=== PATIENT | female | born 1945 | race Caucasian/White ===

== ENCOUNTER 2021-03-01 10:50 | Inpatient (IN) | payer MEDICARE, SELFPAY ==
[2021-03-01] VITALS (14 sets, daily range): BP systolic 86–135; BP diastolic 35–96; PULSE 71–155; RESP 14–20; TEMP 36.4–36.8; O2SAT 97–100; BMI 28.9
--- NOTE | 2021-03-01 | ECG_ITS ---
Test Reason : TACHYCARDIA Blood Pressure : / mmHG Vent. Rate : 157 BPM Atrial Rate : 000 BPM P-R Int : 000 ms QRS Dur : 070 ms QT Int : 294 ms P-R-T Axes : 000 021 138 degrees QTc Int : 475 ms Atrial fibrillation with rapid ventricular response with premature ventricular or aberrantly conducted complexes Nonspecific ST and T wave abnormality Abnormal ECG When compared with ECG of 02-JUL-2011 15:53, Atrial fibrillation has replaced Sinus rhythm Vent. rate has increased BY 82 BPM Referred By: Generic ED Physician Electronically Signed By:MAKENZIE BRADSHAW
--- NOTE | ~2021-03-01 | XR_ITS ---
EXAMINATION: XR CHEST CLINICAL INFORMATION: Covid, cough COMPARISON: None TECHNIQUE: Frontal view of the chest was obtained. FINDINGS: No significant abnormality is noted involving the heart, lungs, mediastinum, bony thorax or soft tissues. XR/XR chest 1V IMPRESSION: Unremarkable chest examination.
--- NOTE | ~2021-03-01 | CT_ITS ---
EXAMINATION: CT ABDOMEN AND PELVIS WITH CONTRAST CLINICAL INFORMATION: Inguinal and vaginal infection. History of multiple cancer. COMPARISON: Ultrasound abdomen 07/02/2011 TECHNIQUE: Multidetector volumetric images were obtained from the superior aspect of the liver through the pubic symphysis following administration 85 mL of Omnipaque 350 intravenous contrast. Sagittal and coronal reformatted images were obtained on the technologist's workstation. Oral contrast: No This CT examination was performed using dose optimization techniques as appropriate, variously including the following: *Automated exposure control *Adjustment of mA and/or kV according to patient size (this includes techniques or standardized protocols for targeted exams where dose is matched to indication/reason for exam; i.e. extremities or head) *Use of iterative reconstruction technique DLP: 983 mGy-cm FINDINGS: LUNG BASES: There is patchy opacity seen in both lung bases. The heart size is normal. LIVER, GALLBLADDER, AND BILIARY TREE: The liver is normal in size, shape, and attenuation. No focal hepatic lesion or biliary ductal dilatation is present. The gallbladder has been surgically removed. PANCREAS: Unremarkable. SPLEEN: The spleen is unremarkable. ADRENAL GLANDS: Prominent left adrenal gland with a nodular thickening measuring 1.1 cm.. KIDNEYS AND URETERS: The kidneys are slightly lobulated with mild cortical thinning. No radiopaque renal calculi, cyst or enhancing renal mass seen. There is no hydroureteronephrosis. BLADDER: The bladder is nondistended with mild anterior bladder wall thickening. No radiopaque calculi seen. GASTROINTESTINAL TRACT: There is mild thickening of distal descending and sigmoid colon but no diverticuli seen or is any suspicion for diverticulitis. This may be postradiation. Changes if any patient had previous radiation. The small bowel loops are normal caliber. Appendix is not visualized. The stomach is nondistended. There is a small amount of fluid in the pelvis ABDOMINAL WALL: There is mild ascites and cellulitis. No evidence of hernia. LYMPH NODES: Normal. VASCULAR: Unremarkable. PELVIC VISCERA: There is small amount of fluid in the pelvis. There is moderate presacral soft tissue thickening likely postradiation changes or post inflammatory changes. Correlate with clinical exam. OSSEOUS STRUCTURES: There are degenerative disc changes throughout lumbar spine with sparing of the L4-L5 disc level. No aggressive lytic or sclerotic process seen. CT/CT abdomen pelvis w con IMPRESSION: No acute intra-abdominal process seen. Diffuse cellulitis, small amount of ascites and moderate presacral soft tissue thickening likely postradiation or postinflammatory changes. There is nonspecific mild mural thickening involving distal descending and sigmoid colon question post radiation changes. There are a few scattered diverticula but no suggestion for diverticulitis. Mild prominent left adrenal gland measuring 1.1 cm.
--- NOTE | 2021-03-01 11:38 | ED_ITS ---
HPI - Wound/Laceration General Chief Complaint: Wound/Laceration <ABRAM Grady - Last Filed: 03/01/21 14:29> Stated Complaint: +COVID,WOUND CARE NEED PER SNF <ABRAM Grady - Last Filed: 03/01/21 14:29> Time Seen by Provider: 03/01/21 11:22 <ABRAM Grady - Last Filed: 03/01/21 14:29> Source: patient, EMS, RN notes reviewed and old records reviewed <ABRAM Grady - Last Filed: 03/01/21 14:29> Mode of arrival: EMS <ABRAM Grady - Last Filed: 03/01/21 14:29> Limitations: no limitations <ABRAM Grady - Last Filed: 03/01/21 14:29> History of Present Illness HPI narrative: 75-year-old female with a history of for 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 She is a poor historian. She had recent admission to [facility] from February 11 to February 16 for failure to thrive and re- initiation of chemotherapy. She had a port placed in her right chest. She was recently found to be COVID positive, unclear when. She denies any shortness of breath or chest pain. She denies fever or chills. She reports severe ongoing pain in her buttock and genital area associated with chronic wounds. Spoke with the nurse at [facility]. They are state deployed emergency nurses helping out in the COVID pandemic and don't know the residents well. Patient was in the COVID unit when they arrived on Tuesday they are on assure when she was diagnosed with COVID. She has been asymptomatic from a COVID perspective. This into the ER today for severe pain associated with her wounds. They have been getting worse since admission to [facility] 02/16. Every time she uses the bathroom she is in severe pain and is unable to get adequately cleaned. Nurse denies any fevers. <ABRAM Grady - Last Filed: 03/01/21 14:29> Onset (ago): unknown <ABRAM Grady - Last Filed: 03/01/21 14:29> Location: genitals <ABRAM Grady - Last Filed: 03/01/21 14:29> Context: other (Status post radiation on clear when.) <ABRAM Grady - Last Filed: 03/01/21 14:29> Associated symptoms: pain <ABRAM Grady - Last Filed: 03/01/21 14:29> Related Data Home Medications: Home Medications Medication Instructions Recorded Confirmed Magic Mouthwash 10 ml PO TIDAC 03/01/21 03/01/21 albuterol sulfate 90 mcg/actuation 2 puff INHALATION Q6H PRN 03/01/21 03/01/21 aerosol inhaler (ProAir HFA) apixaban 5 mg tablet 5 mg PO BID 03/01/21 03/01/21 cholecalciferol (vitamin D3) 50 50 mcg PO DAILY 03/01/21 03/01/21 mcg (2,000 unit) capsule (Vitamin D3) cyanocobalamin (vitamin B-12) 1,000 mcg PO DAILY 03/01/21 03/01/21 1,000 mcg tablet docusate sodium 100 mg capsule 100 mg PO BID 03/01/21 03/01/21 duloxetine 60 mg capsule,delayed 60 mg PO DAILY 03/01/21 03/01/21 release ferrous sulfate 324 mg (65 mg 324 mg PO DAILY 03/01/21 03/01/21 iron) tablet,delayed release insulin glargine 100 unit/mL 16 unit SUBCUT BEDTIME 03/01/21 03/01/21 subcutaneous solution (Lantus U-100 Insulin) insulin lispro 100 unit/mL 1 sliding scale dose SUBCUT QIDACHS 03/01/21 03/01/21 subcutaneous solution (Humalog U-100 Insulin) loperamide 2 mg tablet 2 mg PO Q8H PRN 03/01/21 03/01/21 lorazepam 0.5 mg tablet 0.5 mg PO BID 03/01/21 03/01/21 lovastatin 40 mg tablet 40 mg PO BEDTIME 03/01/21 03/01/21 metoprolol tartrate 25 mg tablet 12.5 mg PO BID 03/01/21 03/01/21 omeprazole 20 mg capsule,delayed 20 mg PO DAILY@0630 03/01/21 03/01/21 release oxycodone 10 mg tablet,crush 10 mg PO BID 03/01/21 03/01/21 resistant,extended release 12 hr (OxyContin) oxycodone 5 mg tablet 5 mg PO Q12H PRN 03/01/21 03/01/21 polyethylene glycol 3350 17 17 g PO DAILY 03/01/21 03/01/21 gram/dose oral powder (Miralax) prochlorperazine maleate 10 mg 10 mg PO Q6H PRN 03/01/21 03/01/21 tablet <ABRAM Grady - Last Filed: 03/01/21 14:29> Allergies/Adverse Reactions: Allergies Allergy/AdvReac Type Severity Reaction Status Date / Time No Known Allergies Allergy Verified 03/01/21 11:33 <ABRAM Grady - Last Filed: 03/01/21 14:29> Review of Systems Review of Systems: Constitutional: No Fever, No Chills ENT/Mouth: No sore throat, No Rhinorrhea, No Swallowing Difficulty Cardiovascular: No Chest Pain, No SOB, No Orthopnea, No Edema Respiratory: No Cough, No Sputum, No Wheezing, No dyspnea Gastrointestinal: No Nausea, No Vomiting, + Diarrhea, No abdominal Pain, No Hematochezia, No Melena Genitourinary: No Dysuria, No Urinary Frequency, No Hematuria Musculoskeletal: No joint pain, No Myalgias Skin: + Skin Lesions, No rash Neuro: No Weakness, No Numbness, No Dizziness, No Headache Psych: + Anxiety/Panic, + Depression Heme/Lymph: No Bruising, No Lymphadenopathy Endocrine: No Polyuria, No Polydipsia <ABRAM Grady - Last Filed: 03/01/21 14:29> [facility] Past Medical History Medical History: Medical History (Updated 03/01/21 @ 16:06 by ABRAM Stubbs) Atrial fibrillation Depression Diabetes Failure to thrive in adult Vulvar cancer <ABRAM Grady - Last Filed: 03/01/21 14:29> Social History Social History: Social History Patient Tobacco Use Status: Never used Tobacco Use of substances other than those prescribed or required for medical reasons: No Advance Directives: No Advance Directives Information Provided: No <ABRAM Grady - Last Filed: 03/01/21 14:29> Physical Exam Vital Signs: Vital Signs: Last Vital Signs Temp 97.6 F 03/01/21 14:31 Pulse 135 H 03/01/21 15:02 Resp 18 03/01/21 15:02 BP 119/68 03/01/21 15:02 Pulse Ox 98 03/01/21 15:02 BMI result Body Mass Index 28.9 <ABRAM Grady - Last Filed: 03/01/21 14:29> Vital Signs: Last Vital Signs Temp 97.6 F 03/01/21 14:31 Pulse 135 H 03/01/21 15:02 Resp 18 03/01/21 15:02 BP 119/68 03/01/21 15:02 Pulse Ox 98 03/01/21 15:02 BMI result Body Mass Index 28.9 <ABRAM Stubbs - Last Filed: 03/01/21 16:06> Appearance: Alert elderly female, Oriented X2. Appears in pain Eyes: Pupils equal, round and reactive to light. ENT: Pharynx normal. Neck: Normal inspection. Neck supple. CVS: Irregularly irregular, rapid rhythm in the 160s. normal. Respiratory: No respiratory distress. Breath sounds coarse throughout. Abdomen: Obese, Soft and nontender. +BS x4 Pelvic/rectal: Significant wounds to the rectal and vaginal areas with liquid stool within the rectal wounds. Skin: Skin warm and dry. Normal skin color. Normal skin turgor. No rashes. Extremities: No lower extremity edema. Contracted LE and unable to spread legs for adequate visualization of vaginal wounds Neuro: Oriented X 2. No motor deficit. No sensory deficit. buttocks external vaginal area <ABRAM Grady - Last Filed: 03/01/21 14:29> Course Course Course Narrative: 75-year-old female with a history of recurrent vulvar cancer re-initiated on chemotherapy earlier this month, failure to thrive, AFib on Eliquis pr esenting to the ER for evaluation of acute on chronic rectal and vaginal wounds. Spoke to the nurse at her SNF who is reporting these wounds have been worsening over the last 2 weeks. No fevers there. She writes to the ER in rapid atrial fibrillation heart rates 140s to 160s. She is in significant pain. She has liquid stool in her wounds. Will get CT scan of the abdomen and pelvis to rule out necrotizing or gas-forming infection. Will empirically start vanco and Zosyn for broad bacterial coverage. IV fluids and IV Cardizem have been ordered to help improve heart rate. Patient is critically ill & require admission to the hospital. <ABRAM Grady - Last Filed: 03/01/21 14:29> Reevaluation(s) Reevaluation #1: Lactic acid 3.6 with no leukocytosis. CRP 14.58 with BNP 270. Getting sepsis bolus of IVF. Respiratory status is stable on room air. Sats are 99%. After the IV Cardizem bolus patient became hypotensive 87/56. Additional IV fluids infusing with improvement in the blood pressure 100/55. Heart rate 140. IV cardizem gtt ordered, may need to dig load if BP becomes soft again. <ABRAM Grady - Last Filed: 03/01/21 14:29> Reevaluation #2: BP 88/38 with HR 130s-140's. 1.3L of the total sepsis bolus have infused so far. Spoke w/ Dr. Cox who agrees with dig load. Signed out to Charlene ARAMBULA who will assume care. <ABRAM Grady - Last Filed: 03/01/21 14:29> Reevaluation #3: CT abdomen pelvis w con IMPRESSION: No acute intra-abdominal process seen. ? Diffuse cellulitis, small amount of ascites and moderate presacral soft tissue thickening likely postradiation or postinflammatory changes. ? There is nonspecific mild mural thickening involving distal descending and sigmoid colon question post radiation changes. There are a few scattered diverticula but no suggestion for diverticulitis.? ? Mild prominent left adrenal gland measuring 1.1 cm. -[id number]--patient admitted to hospital service for further management <ABRAM Stubbs - Last Filed: 03/01/21 16:06> MDM - Wound/Laceration Lab Data Result diagrams: : 03/01/21 12:14 03/01/21 12:14 <ABRAM Grady - Last Filed: 03/01/21 14:29> Labs: Lab Results 03/01/21 03/01/21 03/01/21 Range/Units 11:39 12:14 12:14 WBC 5.8 (4.8-10.8) X10*3/uL RBC 4.69 (4.20-5.50) X10*6/uL Hgb 11.7 L (12.0-16.0) g/dl Hct 36.8 L (37.0-47.0) % MCV 78.5 L (80.0-98.0) fL MCH 24.9 L (27.0-33.0) pg MCHC 31.8 (31.0-35.0) g/dl RDW 16.5 H (11.0-16.0) % Plt Count 361 (160-400) X10*3/uL MPV 10.1 (9.4-12.3) fL Immature Gran % (Auto) Cancelled Neut % (Auto) Cancelled Lymph % (Auto) Cancelled Crane % (Auto) Cancelled Eos % (Auto) Cancelled Baso % (Auto) Cancelled Lymph # (Auto) Cancelled Crane # (Auto) Cancelled Eos # (Auto) Cancelled Baso # (Auto) Cancelled Abs Immat Gran (auto) Cancelled Absolute Neuts (auto) Cancelled Absolute Nucleated RBC 0.000 (0.0-0.012) X10*3/uL Nucleated RBC % (auto) 0.0 (0.0-0.2) /100WBC Neutrophils % (Manual) 80 H (45-73) % Band Neutrophils % 9 H (3-5) % Lymphocytes % (Manual) 3 L (20-40) % Monocytes % (Manual) 8 (2-11) % Abs Neuts (Manual) 5.2 (2.0-8.3) X10*3/uL Lymphocytes # (Manual) 0.2 L (1.2-4.9) X10*3/uL Monocytes # (Manual) 0.5 (0.1-1.2) X10*3/uL Platelet Estimate NORMAL (NORMAL) Large Platelets PRESENT Plt Morphology Comment NOTED RBC Morphology NOTED Ovalocytes 1+ (5-14) /OIF [place] Cells 2+ (3-5) /OIF Rouleaux PRESENT ESR 39 H (0-20) MM/HR PT (9.9-13.0) SEC INR (0.9-1.1) APTT (24.1-38.0) SEC Sodium (135-145) mmol/L Potassium (3.3-5.1) mmol/L Chloride (96-108) mmol/L Carbon Dioxide (22-29) mmol/L Anion Gap (12-20) BUN (9-16) mg/dL Creatinine (0.5-1.4) mg/dL Estim Creat Clear Calc Estimated GFR Random Glucose (60-115) mg/dL Lactic Acid (0.5-2.0) mmol/L Calcium (8.4-10.2) mg/dL Magnesium (1.6-2.6) mg/dL Ferritin (10-250) ng/mL Total Bilirubin (0.0-1.0) mg/dL Direct Bilirubin (0.0-0.5) mg/dL AST (5-31) U/L ALT (0-31) U/L Alkaline Phosphatase (39-117) U/L Lactate Dehydrogenase (122-220) U/L Total Creatine Kinase (26-140) U/L Troponin I High Sens (<3.5-17.0) ng/L C-Reactive Protein (< or = 0.50) mg/dL B-Natriuretic Peptide (<100) pg/mL Total Protein (6.5-8.0) g/dL Albumin (3.5-5.0) g/dL Procalcitonin ng/mL COVID-19 (BRAD) Positive A (Negative) COVID-19 Clin Com See Note 03/01/21 03/01/21 03/01/21 Range/Units 12:14 12:14 12:14 WBC (4.8-10.8) X10*3/uL RBC (4.20-5.50) X10*6/uL Hgb (12.0-16.0) g/dl Hct (37.0-47.0) % MCV (80.0-98.0) fL MCH (27.0-33.0) pg MCHC (31.0-35.0) g/dl RDW (11.0-16.0) % Plt Count (160-400) X10*3/uL MPV (9.4-12.3) fL Immature Gran % (Auto) Neut % (Auto) Lymph % (Auto) Crane % (Auto) Eos % (Auto) Baso % (Auto) Lymph # (Auto) Crane # (Auto) Eos # (Auto) Baso # (Auto) Abs Immat Gran (auto) Absolute Neuts (auto) Absolute Nucleated RBC (0.0-0.012) X10*3/uL Nucleated RBC % (auto) (0.0-0.2) /100WBC Neutrophils % (Manual) (45-73) % Band Neutrophils % (3-5) % Lymphocytes % (Manual) (20-40) % Monocytes % (Manual) (2-11) % Abs Neuts (Manual) (2.0-8.3) X10*3/uL Lymphocytes # (Manual) (1.2-4.9) X10*3/uL Monocytes # (Manual) (0.1-1.2) X10*3/uL Platelet Estimate (NORMAL) Large Platelets Plt Morphology Comment RBC Morphology Ovalocytes /OIF [place] Cells /OIF Rouleaux ESR (0-20) MM/HR PT 15.3 H (9.9-13.0) SEC INR 1.3 H (0.9-1.1) APTT 29.7 (24.1-38.0) SEC Sodium 135 (135-145) mmol/L Potassium 3.7 (3.3-5.1) mmol/L Chloride 98 (96-108) mmol/L Carbon Dioxide 25 (22-29) mmol/L Anion Gap 16 (12-20) BUN 8 L (9-16) mg/dL Creatinine 0.72 (0.5-1.4) mg/dL Estim Creat Clear Calc 60.1 Estimated GFR > 60 Random Glucose 207 H (60-115) mg/dL Lactic Acid 3.6 H* (0.5-2.0) mmol/L Calcium 8.3 L (8.4-10.2) mg/dL Magnesium 1.6 (1.6-2.6) mg/dL Ferritin (10-250) ng/mL Total Bilirubin 0.4 (0.0-1.0) mg/dL Direct Bilirubin 0.3 (0.0-0.5) mg/dL AST 35 H (5-31) U/L ALT 13 (0-31) U/L Alkaline Phosphatase 112 (39-117) U/L Lactate Dehydrogenase 203 (122-220) U/L Total Creatine Kinase 20 L (26-140) U/L Troponin I High Sens (<3.5-17.0) ng/L C-Reactive Protein 14.58 H (< or = 0.50) mg/dL B-Natriuretic Peptide (<100) pg/mL Total Protein 5.4 L (6.5-8.0) g/dL Albumin 2.3 L (3.5-5.0) g/dL Procalcitonin ng/mL COVID-19 (BRAD) (Negative) COVID-19 Clin Com 03/01/21 03/01/21 03/01/21 Range/Units 12:14 12:14 12:14 WBC (4.8-10.8) X10*3/uL RBC (4.20-5.50) X10*6/uL Hgb (12.0-16.0) g/dl Hct (37.0-47.0) % MCV (80.0-98.0) fL MCH (27.0-33.0) pg MCHC (31.0-35.0) g/dl RDW (11.0-16.0) % Plt Count (160-400) X10*3/uL MPV (9.4-12.3) fL Immature Gran % (Auto) Neut % (Auto) Lymph % (Auto) Crane % (Auto) Eos % (Auto) Baso % (Auto) Lymph # (Auto) Crane # (Auto) Eos # (Auto) Baso # (Auto) Abs Immat Gran (auto) Absolute Neuts (auto) Absolute Nucleated RBC (0.0-0.012) X10*3/uL Nucleated RBC % (auto) (0.0-0.2) /100WBC Neutrophils % (Manual) (45-73) % Band Neutrophils % (3-5) % Lymphocytes % (Manual) (20-40) % Monocytes % (Manual) (2-11) % Abs Neuts (Manual) (2.0-8.3) X10*3/uL Lymphocytes # (Manual) (1.2-4.9) X10*3/uL Monocytes # (Manual) (0.1-1.2) X10*3/uL Platelet Estimate (NORMAL) Large Platelets Plt Morphology Comment RBC Morphology Ovalocytes /OIF [place] Cells /OIF Rouleaux ESR (0-20) MM/HR PT (9.9-13.0) SEC INR (0.9-1.1) APTT (24.1-38.0) SEC Sodium (135-145) mmol/L Potassium (3.3-5.1) mmol/L Chloride (96-108) mmol/L Carbon Dioxide (22-29) mmol/L Anion Gap (12-20) BUN (9-16) mg/dL Creatinine (0.5-1.4) mg/dL Estim Creat Clear Calc Estimated GFR Random Glucose (60-115) mg/dL Lactic Acid (0.5-2.0) mmol/L Calcium (8.4-10.2) mg/dL Magnesium (1.6-2.6) mg/dL Ferritin 525 H (10-250) ng/mL Total Bilirubin (0.0-1.0) mg/dL Direct Bilirubin (0.0-0.5) mg/dL AST (5-31) U/L ALT (0-31) U/L Alkaline Phosphatase (39-117) U/L Lactate Dehydrogenase (122-220) U/L Total Creatine Kinase (26-140) U/L Troponin I High Sens 3.7 (<3.5-17.0) ng/L C-Reactive Protein (< or = 0.50) mg/dL B-Natriuretic Peptide 270 H (<100) pg/mL Total Protein (6.5-8.0) g/dL Albumin (3.5-5.0) g/dL Procalcitonin 0.09 ng/mL COVID-19 (BRAD) (Negative) COVID-19 Clin Com <ABRAM Grady - Last Filed: 03/01/21 14:29> Lab Results 03/01/21 03/01/21 03/01/21 Range/Units 11:39 12:14 12:14 WBC 5.8 (4.8-10.8) X10*3/uL RBC 4.69 (4.20-5.50) X10*6/uL Hgb 11.7 L (12.0-16.0) g/dl Hct 36.8 L (37.0-47.0) % MCV 78.5 L (80.0-98.0) fL MCH 24.9 L (27.0-33.0) pg MCHC 31.8 (31.0-35.0) g/dl RDW 16.5 H (11.0-16.0) % Plt Count 361 (160-400) X10*3/uL MPV 10.1 (9.4-12.3) fL Immature Gran % (Auto) Cancelled Neut % (Auto) Cancelled Lymph % (Auto) Cancelled Crane % (Auto) Cancelled Eos % (Auto) Cancelled Baso % (Auto) Cancelled Lymph # (Auto) Cancelled Crane # (Auto) Cancelled Eos # (Auto) Cancelled Baso # (Auto) Cancelled Abs Immat Gran (auto) Cancelled Absolute Neuts (auto) Cancelled Absolute Nucleated RBC 0.000 (0.0-0.012) X10*3/uL Nucleated RBC % (auto) 0.0 (0.0-0.2) /100WBC Neutrophils % (Manual) 80 H (45-73) % Band Neutrophils % 9 H (3-5) % Lymphocytes % (Manual) 3 L (20-40) % Monocytes % (Manual) 8 (2-11) % Abs Neuts (Manual) 5.2 (2.0-8.3) X10*3/uL Lymphocytes # (Manual) 0.2 L (1.2-4.9) X10*3/uL Monocytes # (Manual) 0.5 (0.1-1.2) X10*3/uL Platelet Estimate NORMAL (NORMAL) Large Platelets PRESENT Plt Morphology Comment NOTED RBC Morphology NOTED Ovalocytes 1+ (5-14) /OIF [place] Cells 2+ (3-5) /OIF Rouleaux PRESENT ESR 39 H (0-20) MM/HR PT (9.9-13.0) SEC INR (0.9-1.1) APTT (24.1-38.0) SEC Sodium (135-145) mmol/L Potassium (3.3-5.1) mmol/L Chloride (96-108) mmol/L Carbon Dioxide (22-29) mmol/L Anion Gap (12-20) BUN (9-16) mg/dL Creatinine (0.5-1.4) mg/dL Estim Creat Clear Calc Estimated GFR Random Glucose (60-115) mg/dL Lactic Acid (0.5-2.0) mmol/L Calcium (8.4-10.2) mg/dL Magnesium (1.6-2.6) mg/dL Ferritin (10-250) ng/mL Total Bilirubin (0.0-1.0) mg/dL Direct Bilirubin (0.0-0.5) mg/dL AST (5-31) U/L ALT (0-31) U/L Alkaline Phosphatase (39-117) U/L Lactate Dehydrogenase (122-220) U/L Total Creatine Kinase (26-140) U/L Troponin I High Sens (<3.5-17.0) ng/L C-Reactive Protein (< or = 0.50) mg/dL B-Natriuretic Peptide (<100) pg/mL Total Protein (6.5-8.0) g/dL Albumin (3.5-5.0) g/dL Procalcitonin ng/mL COVID-19 (BRAD) Positive A (Negative) COVID-19 Clin Com See Note 03/01/21 03/01/21 03/01/21 Range/Units 12:14 12:14 12:14 WBC (4.8-10.8) X10*3/uL RBC (4.20-5.50) X10*6/uL Hgb (12.0-16.0) g/dl Hct (37.0-47.0) % MCV (80.0-98.0) fL MCH (27.0-33.0) pg MCHC (31.0-35.0) g/dl RDW (11.0-16.0) % Plt Count (160-400) X10*3/uL MPV (9.4-12.3) fL Immature Gran % (Auto) Neut % (Auto) Lymph % (Auto) Crane % (Auto) Eos % (Auto) Baso % (Auto) Lymph # (Auto) Crane # (Auto) Eos # (Auto) Baso # (Auto) Abs Immat Gran (auto) Absolute Neuts (auto) Absolute Nucleated RBC (0.0-0.012) X10*3/uL Nucleated RBC % (auto) (0.0-0.2) /100WBC Neutrophils % (Manual) (45-73) % Band Neutrophils % (3-5) % Lymphocytes % (Manual) (20-40) % Monocytes % (Manual) (2-11) % Abs Neuts (Manual) (2.0-8.3) X10*3/uL Lymphocytes # (Manual) (1.2-4.9) X10*3/uL Monocytes # (Manual) (0.1-1.2) X10*3/uL Platelet Estimate (NORMAL) Large Platelets Plt Morphology Comment RBC Morphology Ovalocytes /OIF Merline Cells /OIF Rouleaux ESR (0-20) MM/HR PT 15.3 H (9.9-13.0) SEC INR 1.3 H (0.9-1.1) APTT 29.7 (24.1-38.0) SEC Sodium 135 (135-145) mmol/L Potassium 3.7 (3.3-5.1) mmol/L Chloride 98 (96-108) mmol/L Carbon Dioxide 25 (22-29) mmol/L Anion Gap 16 (12-20) BUN 8 L (9-16) mg/dL Creatinine 0.72 (0.5-1.4) mg/dL Estim Creat Clear Calc 60.1 Estimated GFR > 60 Random Glucose 207 H (60-115) mg/dL Lactic Acid 3.6 H* (0.5-2.0) mmol/L Calcium 8.3 L (8.4-10.2) mg/dL Magnesium 1.6 (1.6-2.6) mg/dL Ferritin (10-250) ng/mL Total Bilirubin 0.4 (0.0-1.0) mg/dL Direct Bilirubin 0.3 (0.0-0.5) mg/dL AST 35 H (5-31) U/L ALT 13 (0-31) U/L Alkaline Phosphatase 112 (39-117) U/L Lactate Dehydrogenase 203 (122-220) U/L Total Creatine Kinase 20 L (26-140) U/L Troponin I High Sens (<3.5-17.0) ng/L C-Reactive Protein 14.58 H (< or = 0.50) mg/dL B-Natriuretic Peptide (<100) pg/mL Total Protein 5.4 L (6.5-8.0) g/dL Albumin 2.3 L (3.5-5.0) g/dL Procalcitonin ng/mL COVID-19 (BRAD) (Negative) COVID-19 Clin Com 03/01/21 03/01/21 03/01/21 Range/Units 12:14 12:14 12:14 WBC (4.8-10.8) X10*3/uL RBC (4.20-5.50) X10*6/uL Hgb (12.0-16.0) g/dl Hct (37.0-47.0) % MCV (80.0-98.0) fL MCH (27.0-33.0) pg MCHC (31.0-35.0) g/dl RDW (11.0-16.0) % Plt Count (160-400) X10*3/uL MPV (9.4-12.3) fL Immature Gran % (Auto) Neut % (Auto) Lymph % (Auto) Crane % (Auto) Eos % (Auto) Baso % (Auto) Lymph # (Auto) Crane # (Auto) Eos # (Auto) Baso # (Auto) Abs Immat Gran (auto) Absolute Neuts (auto) Absolute Nucleated RBC (0.0-0.012) X10*3/uL Nucleated RBC % (auto) (0.0-0.2) /100WBC Neutrophils % (Manual) (45-73) % Band Neutrophils % (3-5) % Lymphocytes % (Manual) (20-40) % Monocytes % (Manual) (2-11) % Abs Neuts (Manual) (2.0-8.3) X10*3/uL Lymphocytes # (Manual) (1.2-4.9) X10*3/uL Monocytes # (Manual) (0.1-1.2) X10*3/uL Platelet Estimate (NORMAL) Large Platelets Plt Morphology Comment RBC Morphology Ovalocytes /OIF [place] Cells /OIF Rouleaux ESR (0-20) MM/HR PT (9.9-13.0) SEC INR (0.9-1.1) APTT (24.1-38.0) SEC Sodium (135-145) mmol/L Potassium (3.3-5.1) mmol/L Chloride (96-108) mmol/L Carbon Dioxide (22-29) mmol/L Anion Gap (12-20) BUN (9-16) mg/dL Creatinine (0.5-1.4) mg/dL Estim Creat Clear Calc Estimated GFR Random Glucose (60-115) mg/dL Lactic Acid (0.5-2.0) mmol/L Calcium (8.4-10.2) mg/dL Magnesium (1.6-2.6) mg/dL Ferritin 525 H (10-250) ng/mL Total Bilirubin (0.0-1.0) mg/dL Direct Bilirubin (0.0-0.5) mg/dL AST (5-31) U/L ALT (0-31) U/L Alkaline Phosphatase (39-117) U/L Lactate Dehydrogenase (122-220) U/L Total Creatine Kinase (26-140) U/L Troponin I High Sens 3.7 (<3.5-17.0) ng/L C-Reactive Protein (< or = 0.50) mg/dL B-Natriuretic Peptide 270 H (<100) pg/mL Total Protein (6.5-8.0) g/dL Albumin (3.5-5.0) g/dL Procalcitonin 0.09 ng/mL COVID-19 ([facility]) (Negative) COVID-19 Clin Com <ABRAM Stubbs - Last Filed: 03/01/21 16:06> Critical Care Time Critical Care Time Critical Care Time: Yes <ABRAM Grady - Last Filed: 03/01/21 14:29> Total Critical Care Time: 50 <ABRAM Grady - Last Filed: 03/01/21 14:29> Attestation: I have personally provided critical care time exclusive of time spent on separately billable procedures. Time includes review of lab data, radiology results, discussion with consultants, frequent reassessments and monitoring for potential decompensation. Intervention performed as documented. <ABRAM Grady - Last Filed: 03/01/21 14:29> Discharge Plan Discharge Clinical Impression: Atrial fibrillation with rapid ventricular response, Cellulitis, COVID-19 <ABRAM Grady - Last Filed: 03/01/21 14:29> Patient Disposition: Admitted As Inpatient <ABRAM Grady - Last Filed: 03/01/21 14:29> Prescriptions: No Action oxycodone 5 mg Tablet 5 mg PO Q12H PRN (Reason: Pain (Scale Score 4-6)) RF: 0 oxycodone [OxyContin] 10 mg Tablet,Oral Only,Ext.Rel.12 Hr 10 mg PO BID RF: 0 apixaban 5 mg Tablet 5 mg PO BID RF: 0 cholecalciferol (vitamin D3) [Vitamin D3] 50 mcg (2,000 unit) Capsule 50 mcg PO DAILY RF: 0 cyanocobalamin (vitamin B-12) 1,000 mcg Tablet 1,000 mcg PO DAILY RF: 0 docusate sodium 100 mg Capsule 100 mg PO BID RF: 0 duloxetine 60 mg Capsule,Delayed Release(Dr/Ec) 60 mg PO DAILY RF: 0 ferrous sulfate 324 mg (65 mg iron) Tablet,Delayed Release (Dr/Ec) 324 mg PO DAILY RF: 0 Lantus U-100 Insulin 100 unit/mL Solution 16 unit SUBCUT BEDTIME RF: 0 Magic Mouthwash 10 ml PO TIDAC RF: 0 lorazepam 0.5 mg Tablet 0.5 mg PO BID RF: 0 lovastatin 40 mg Tablet 40 mg PO BEDTIME RF: 0 metoprolol tartrate 25 mg Tablet 12.5 mg PO BID RF: 0 omeprazole 20 mg Capsule,Delayed Release(Dr/Ec) 20 mg PO DAILY@0630 RF: 0 polyethylene glycol 3350 [Miralax] 17 gram/dose Powder 17 g PO DAILY RF: 0 prochlorperazine maleate 10 mg Tablet 10 mg PO Q6H PRN (Reason: Nausea And Vomiting) RF: 0 insulin lispro [Humalog U-100 Insulin] 100 unit/mL Solution 1 sliding scale dose SUBCUT QIDACHS RF: 0 loperamide 2 mg Tablet 2 mg PO Q8H PRN (Reason: Diarrhea) RF: 0 albuterol sulfate [ProAir HFA] 90 mcg/actuation Hfa Aerosol Inhaler 2 puff INHALATION Q6H PRN (Reason: Shortness Of Breath Or Wheezing) RF: 0 <ABRAM Grady - Last Filed: 03/01/21 14:29>
[2021-03-01 11:52] LABS: COVID-19 Test Positive (Negative)
[2021-03-01] MEDS: 0.9 % Sodium Chloride 1,000 ML 999 ML IVCONT (12:23)
[2021-03-01] MEDS: dilTIAZem HCL 50 MG/10 ML VIAL 10 MG IVPUSH (12:24)
--- NOTE | 2021-03-01 12:30 | PC.NURSE ---
Addendum entered by Marcia Richmond 03/01/21 17:45: Extensive wound pictures placed i chart by Annetta VALVERDE Original Note: Pt difficult stick, phelbotomy drawn labs, still need bld cx. P given caridizem for rapid a fib rate initially 160s, now 130-140.
[2021-03-01 12:37] LABS: Hematocrit 36.8 % (37.0-47.0); Hemoglobin 11.7 g/dl (12.0-16.0); Mean Corpuscular HGB Conc 31.8 g/dl (31.0-35.0); Mean Corpuscular Hemoglobin 24.9 pg (27.0-33.0); Mean Corpuscular Volume 78.5 fL (80.0-98.0); Mean Platelet Volume 10.1 fL (9.4-12.3); Platelet Count 361 X10*3/uL (160-400); Red Blood Count 4.69 X10*6/uL (4.20-5.50); Red Cell Distribution Width 16.5 % (11.0-16.0); White Blood Count 5.8 X10*3/uL (4.8-10.8)
[2021-03-01 12:47] LABS: INTERNATIONAL NORM RATIO 1.3 (0.9-1.1); Prothrombin Time 15.3 SEC (9.9-13.0)
[2021-03-01] MEDS: Piperacillin Sodium/Tazobactam 3.375 GM in 0.9 % Sodium Chloride 50 ML IV ×2 (12:49→18:14)
[2021-03-01 12:50] LABS: Lactic Acid 3.6 mmol/L (0.5-2.0); Partial Thromboplastin Time 29.7 SEC (24.1-38.0)
[2021-03-01 12:54] LABS: Alanine Aminotransferase 13 U/L (0-31); Albumin Level 2.3 g/dL (3.5-5.0); Alkaline Phosphatase 112 U/L (39-117); Anion Gap 16 (12-20); Aspartate Amino Transferase 35 U/L (5-31); Bilirubin Direct 0.3 mg/dL (0.0-0.5); Bilirubin Total 0.4 mg/dL (0.0-1.0); Blood Urea Nitrogen 8 mg/dL (9-16); C Reactive Protein 14.58 mg/dL (< or = 0.50); Calcium 8.3 mg/dL (8.4-10.2); Carbon Dioxide 25 mmol/L (22-29); Chloride 98 mmol/L (96-108); Creatinine Clr Calc Pharmacy 60.1; Estimated Glomerular Filt Rate > 60; Glucose Random 207 mg/dL (60-115); Lactate Dehydrogenase 203 U/L (122-220); Magnesium 1.6 mg/dL (1.6-2.6); Potassium 3.7 mmol/L (3.3-5.1); Sodium 135 mmol/L (135-145); Total Protein 5.4 g/dL (6.5-8.0)
[2021-03-01 12:58] LABS: Band Neutrophils Percent 9 % (3-5); Lymphocytes Absolute Manual 0.2 X10*3/uL (1.2-4.9); Lymphocytes Percent Manual 3 % (20-40); Monocytes Absolute Manual 0.5 X10*3/uL (0.1-1.2); Monocytes Percent Manual 8 % (2-11); Neutrophils Absolute Manual 5.2 X10*3/uL (2.0-8.3); Neutrophils Percent Manual 80 % (45-73)
[2021-03-01 12:59] LABS: B Type Natriuretic Peptide 270 pg/mL (<100); Burr Cells 2+ (3-5) /OIF; Ovalocytes 1+ (5-14) /OIF; RBC Morphology NOTED; Rouleau PRESENT
[2021-03-01 13:00] LABS: Large Platelet PRESENT; Platelet Estimate NORMAL (NORMAL); Platelet Morphology Comment NOTED
[2021-03-01] MEDS: vancomycin HCL 750 MG in 0.9 % Sodium Chloride 250 ML 265 MG IV (13:05)
[2021-03-01] MEDS: 0.9 % Sodium Chloride 2,082 ML 2082 ML IV (13:07)
[2021-03-01 13:12] LABS: Procalcitonin 0.09 ng/mL
[2021-03-01 13:16] LABS: Troponin-I High Sensitivity 3.7 ng/L (<3.5-17.0)
[2021-03-01 13:18] LABS: Erythrocyte Sedimentation Rate 39 MM/HR (0-20)
[2021-03-01 13:45] LABS: Ferritin 525 ng/mL (10-250)
[2021-03-01] MEDS: iohexoL 350 MG/ML 100 ML INFUS..BTL IV (14:10)
--- NOTE | 2021-03-01 14:13 | PHA.MEDREC ---
MED REC COMPLETE, NO ISSUES Pharmacy Consult ? Medication Reconciliation Pharmacy has completed the medication reconciliation.
[2021-03-01 14:33] LABS: Reflex Lactate? Lactic Acid Added
[2021-03-01] MEDS: Digoxin 0.5 MG/2 ML AMPUL IVPUSH (14:51)
--- NOTE | 2021-03-01 15:03 | PC.NURSE ---
Digoxin given, HR 132 at this time, last pressure as noted (119/68). Pt denies pain with rest and appears comfortable. Difficult IV stick to repeat lactic, will reattempt after warming extremities.
[2021-03-01] MEDS: metroNIDAZOLE 500 MG TABLET PO (15:58)
--- NOTE | 2021-03-01 16:29 | PM.IMHP ---
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 She recently restarted on chemotherapy at [facility], where she was just admitted 02/11-02/16/21 after sustaining a fall at home. She was transferred to [facility] for failure to thrive and for placement. She had a Port-A-Cath placed and received her 2nd cycle of cisplatin and paclitaxel on 02/15 with dose reduction due to diarrhea she had after the 1st cycle. She was discharged to [facility], which apparently is being staffed currently by state-deployed emergency nurses due to the Covid-19 pandemic. 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 Her , with whom she lives, was also admitted to [facility] and they roomed together until 1 of them [she is unclear which one] tested positive for Covid-19. She had 2 doses of the [employer] Covid-19 mRNA vaccine in June and July of this year. She denies cough, dyspnea, or fever. She was sent in with pain in her buttock and genital area with worsening wounds, which were found in the ED to be contaminated with feces. She does endorse diarrhea. She was found to be in AF with RVR of 155. She was given IV vancomycin and piperacillin-tazobactam, and 10mg of IV diltiazem. BP dropped from 112/54 to 87/56 with RVR still in the 140s. Lactate 3.8. She was given 30 mL/kg of NS though did not, strictly speaking, meet sepsis criteria. She was then given 0.5mg of IV digoxin. Currently, she is in AF with RVR in the 130s with BP 135/96. She denies chest pain, palpitations, or lightheadedness. CT of the abdomen and pelvis show diffuse cellulitis with postradiation changes in the presacral area. Review of Systems Review of Systems: Yes all other systems are reviewed and are negative [facility] Medical History Anticoagulated Atrial fibrillation Chronic pain Depression Diabetes Failure to thrive in adult History of ovarian cancer History of uterine cancer Vulvar cancer Pertinent family history: mother: DM2, [place] father: DM2, HTN, CVA sister: breast CA sister: breast CA, HTN brother: [place], CVA daughter: HTN, DM2 Surgical History History of appendectomy History of carpal tunnel release History of cholecystectomy History of hysterectomy for cancer History of knee replacement History of salpingo-oophorectomy History of vulvectomy Social History Patient Tobacco Use Status: Never used Tobacco Use of substances other than those prescribed or required for medical reasons: No Advance Directives: No Advance Directives Information Provided: No Meds Allergies Allergy/AdvReac Type Severity Reaction Status Date / Time No Known Allergies Allergy Verified 03/01/21 11:33 Active Medications: Current Medications Acetaminophen (Acetaminophen 325 Mg Tablet) 650 mg PO Q6H PRN PRN Reason: Pain, Mild (Pain Scale 1-3) Albuterol Sulfate (Albuterol Sulfate 90 Mcg 8 Gm Inhaler) 2 puff INHALE Q6H PRN PRN Reason: Shortness Of Breath Or Wheezing Apixaban (Apixaban 5 Mg Tablet) 5 mg PO BID [facility] Cyanocobalamin (Cyanocobalamin (Vitamin B-12) 1,000 Mcg Tablet) 1,000 mcg PO DAILY [facility] Duloxetine HCl (Duloxetine Hcl 60 Mg Capsule.) 60 mg PO DAILY [facility] Ferrous Sulfate (Ferrous Sulfate 324 Mg Tablet.) 324 mg PO DAILY [facility] Diltiazem HCl 125 mg/ Sodium (Chloride) 125 mls @ 0 mls/hr IVCONT .Q0M [facility]; Protocol Insulin Glargine (Insulin Glargine,Hum.Rec.Anlog 100 Unit/Ml 10 Ml Vial) 16 unit SUBCUT BEDTIME [facility] Lorazepam (Lorazepam 0.5 Mg Tablet) 0.5 mg PO BID [facility] Metoprolol Tartrate (Metoprolol Tartrate 12.5 Mg Halftab) 12.5 mg PO BID [facility]; Protocol Omeprazole (Omeprazole 20 Mg Capsule.) 20 mg PO DAILY@0630 [facility] Ondansetron HCl (Ondansetron Hcl 4 Mg/2 Ml Vial) 4 mg IVPUSH Q8H PRN PRN Reason: Nausea and Vomiting Oxycodone HCl (Oxycodone Hcl Immed Release 5 Mg Tablet) 5 mg PO Q12H PRN PRN Reason: Pain (Scale Score 4-6) Oxycodone HCl (Oxycodone Hcl Er 10 Mg Tab.Er.12h) 10 mg PO BID [facility] Pharmacy Consult (Consult Rx Perform Med Rec) 1 each MISCELLANE ONCE PRN PRN Reason: Consult order Pravastatin Sodium (Pravastatin Sodium 40 Mg Tablet) 40 mg PO BEDTIME [facility] Sodium Chloride (0.9 % Sodium Chloride Flush 3 Ml Syringe) 3 ml IVFLUSH QSHIFT [facility] Vitamin D (Cholecalciferol (Vitamin D3) 25 Mcg Tablet) 50 mcg PO DAILY [facility] Home Medications Medication Instructions Recorded Confirmed Last Taken Type Magic Mouthwash 10 ml PO TIDAC 03/01/21 03/01/21 Unknown History albuterol sulfate 90 mcg/actuation 2 puff INHALATION Q6H PRN 03/01/21 03/01/21 Unknown History aerosol inhaler (ProAir HFA) apixaban 5 mg tablet 5 mg PO BID 03/01/21 03/01/21 03/01/21 History cholecalciferol (vitamin D3) 50 50 mcg PO DAILY 03/01/21 03/01/21 03/01/21 History mcg (2,000 unit) capsule (Vitamin D3) cyanocobalamin (vitamin B-12) 1,000 mcg PO DAILY 03/01/21 03/01/21 03/01/21 History 1,000 mcg tablet docusate sodium 100 mg capsule 100 mg PO BID 03/01/21 03/01/21 03/01/21 History duloxetine 60 mg capsule,delayed 60 mg PO DAILY 03/01/21 03/01/21 03/01/21 History release ferrous sulfate 324 mg (65 mg 324 mg PO DAILY 03/01/21 03/01/21 03/01/21 History iron) tablet,delayed release insulin glargine 100 unit/mL 16 unit SUBCUT BEDTIME 03/01/21 03/01/21 02/28/21 History subcutaneous solution (Lantus U-100 Insulin) insulin lispro 100 unit/mL 1 sliding scale dose SUBCUT QIDACHS 03/01/21 03/01/21 Unknown History subcutaneous solution (Humalog U-100 Insulin) loperamide 2 mg tablet 2 mg PO Q8H PRN 03/01/21 03/01/21 Unknown History lorazepam 0.5 mg tablet 0.5 mg PO BID 03/01/21 03/01/21 03/01/21 History lovastatin 40 mg tablet 40 mg PO BEDTIME 03/01/21 03/01/21 02/28/21 History metoprolol tartrate 25 mg tablet 12.5 mg PO BID 03/01/21 03/01/21 03/01/21 History omeprazole 20 mg capsule,delayed 20 mg PO DAILY@0630 03/01/21 03/01/21 03/01/21 History release oxycodone 10 mg tablet,crush 10 mg PO BID 03/01/21 03/01/21 03/01/21 History resistant,extended release 12 hr (OxyContin) oxycodone 5 mg tablet 5 mg PO Q12H PRN 03/01/21 03/01/21 Unknown History polyethylene glycol 3350 17 17 g PO DAILY 03/01/21 03/01/21 Unknown History gram/dose oral powder (Miralax) prochlorperazine maleate 10 mg 10 mg PO Q6H PRN 03/01/21 03/01/21 Unknown History tablet Physical Exam Vital Signs and Narrative: Vital Signs: Last Vital Signs Temp 97.6 F 03/01/21 14:31 Pulse 135 H 03/01/21 15:02 Resp 18 03/01/21 15:02 BP 119/68 03/01/21 15:02 Pulse Ox 98 03/01/21 15:02 BMI result Body Mass Index 28.9 Gen: chronically ill-appearing but alert HEENT: sclera anicteric, moist mucus membranes Neck: supple Chest: R subclavian port Lungs: clear to auscultation bilaterally Heart: irregular, rapid, no murmurs Abd: soft, non-tender, non-distended Ext: no edema Skin: warm/well-perfused, pale, wounds as below Neuro: alert and oriented x3, no focal findings Psych: appropriate affect Results Labs CBC and Chem 7: 03/01/21 12:14 03/01/21 12:14 Labs: Laboratory Results - last 24 hr 03/01/21 03/01/21 03/01/21 11:39 12:14 12:14 MCV 78.5 L MCH 24.9 L MCHC 31.8 RDW 16.5 H Plt Count 361 MPV 10.1 Immature Gran % (Auto) Cancelled Neut % (Auto) Cancelled Lymph % (Auto) Cancelled [place] % (Auto) Cancelled Eos % (Auto) Cancelled Baso % (Auto) Cancelled Lymph # (Auto) Cancelled [place] # (Auto) Cancelled Eos # (Auto) Cancelled Baso # (Auto) Cancelled Abs Immat Gran (auto) Cancelled Absolute Neuts (auto) Cancelled Absolute Nucleated RBC 0.000 Nucleated RBC % (auto) 0.0 Neutrophils % (Manual) 80 H Band Neutrophils % 9 H Lymphocytes % (Manual) 3 L Monocytes % (Manual) 8 Abs Neuts (Manual) 5.2 Lymphocytes # (Manual) 0.2 L Monocytes # (Manual) 0.5 Platelet Estimate NORMAL Large Platelets PRESENT Plt Morphology Comment NOTED RBC Morphology NOTED Ovalocytes 1+ (5-14) [place] Cells 2+ (3-5) Rouleaux PRESENT ESR 39 H PT INR APTT Anion Gap Estim Creat Clear Calc Estimated GFR Random Glucose Lactic Acid Calcium Magnesium Ferritin Total Bilirubin Direct Bilirubin AST ALT Alkaline Phosphatase Lactate Dehydrogenase Total Creatine Kinase Troponin I High Sens C-Reactive Protein B-Natriuretic Peptide Total Protein Albumin Procalcitonin COVID-19 (BRAD) Positive A COVID-19 Clin Com See Note 03/01/21 03/01/21 03/01/21 12:14 12:14 12:14 MCV MCH MCHC RDW Plt Count MPV Immature Gran % (Auto) Neut % (Auto) Lymph % (Auto) [place] % (Auto) Eos % (Auto) Baso % (Auto) Lymph # (Auto) [place] # (Auto) Eos # (Auto) Baso # (Auto) Abs Immat Gran (auto) Absolute Neuts (auto) Absolute Nucleated RBC Nucleated RBC % (auto) Neutrophils % (Manual) Band Neutrophils % Lymphocytes % (Manual) Monocytes % (Manual) Abs Neuts (Manual) Lymphocytes # (Manual) Monocytes # (Manual) Platelet Estimate Large Platelets Plt Morphology Comment RBC Morphology Ovalocytes [place] Cells Rouleaux ESR PT 15.3 H INR 1.3 H APTT 29.7 Anion Gap 16 Estim Creat Clear Calc 60.1 Estimated GFR > 60 Random Glucose 207 H Lactic Acid 3.6 H* Calcium 8.3 L Magnesium 1.6 Ferritin Total Bilirubin 0.4 Direct Bilirubin 0.3 AST 35 H ALT 13 Alkaline Phosphatase 112 Lactate Dehydrogenase 203 Total Creatine Kinase 20 L Troponin I High Sens C-Reactive Protein 14.58 H B-Natriuretic Peptide Total Protein 5.4 L Albumin 2.3 L Procalcitonin COVID-19 (BRAD) COVID-19 Clin Com 03/01/21 03/01/21 03/01/21 12:14 12:14 12:14 MCV MCH MCHC RDW Plt Count MPV Immature Gran % (Auto) Neut % (Auto) Lymph % (Auto) [place] % (Auto) Eos % (Auto) Baso % (Auto) Lymph # (Auto) [place] # (Auto) Eos # (Auto) Baso # (Auto) Abs Immat Gran (auto) Absolute Neuts (auto) Absolute Nucleated RBC Nucleated RBC % (auto) Neutrophils % (Manual) Band Neutrophils % Lymphocytes % (Manual) Monocytes % (Manual) Abs Neuts (Manual) Lymphocytes # (Manual) Monocytes # (Manual) Platelet Estimate Large Platelets Plt Morphology Comment RBC Morphology Ovalocytes [place] Cells Rouleaux ESR PT INR APTT Anion Gap Estim Creat Clear Calc Estimated GFR Random Glucose Lactic Acid Calcium Magnesium Ferritin 525 H Total Bilirubin Direct Bilirubin AST ALT Alkaline Phosphatase Lactate Dehydrogenase Total Creatine Kinase Troponin I High Sens 3.7 C-Reactive Protein B-Natriuretic Peptide 270 H Total Protein Albumin Procalcitonin 0.09 COVID-19 (BRAD) COVID-19 Clin Com Imaging Radiologist's Impressions: Impressions Chest X-Ray 03/01/21 13:15 IMPRESSION: Unremarkable chest examination. Abdomen/Pelvis CT 03/01/21 14:07 IMPRESSION: No acute intra-abdominal process seen. Diffuse cellulitis, small amount of ascites and moderate presacral soft tissue thickening likely postradiation or postinflammatory changes. There is nonspecific mild mural thickening involving distal descending and sigmoid colon question post radiation changes. There are a few scattered diverticula but no suggestion for diverticulitis. Mild prominent left adrenal gland measuring 1.1 cm. 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 She also has breakthrough Covid-19 infection, though is asymptomatic and not hypoxic. # AF/RVR - admit to [facility] [isolation precautions due to Covid-19]. loaded with digoxin. continue metoprolol tartrate. continue apixaban. Cardiology consultation. Update TTE [last one at [facility] was on 04/27/19 and was essentially normal]. Treat inciting infection as below # wound infection/cellulitis - vancomycin and piperacillin/tazobactam for broad-spectrum coverage. ID, Gen Surg, and Wound Care consultation. # breakthrough Covid-19 infection - had 2 doses of mRNA vaccination in the spring. monitor for hypoxia and respiratory decompensation. ID consult as above # diarrhea, post-chemotherapy - r/o C. diff by PCR and if negative, give loperamide prn # DM2 - basal/bolus insulin. last A1c 7.2 on 12/24/20 # HLD - continue statin # mood disorder - continue duloxetine, lorazepam # chronic pain - continue long-acting oxycodone and prn short-acting oxycodone; add IV hydromorphone # VTE ppx - apixaban # code - full Quality Stroke Does the patient have a stroke diagnosis?: No VTE Prior VTE?: No VTE Risk Level:: Medical - moderate - high VTE Device Contraindication: N/A - Device Ordered VTE Drug Contraindication: N/A - Med Ordered
[2021-03-01 16:57] LABS: ~Lactic Acid-LAB USE ONLY 2.3 mmol/L (0.5-2.0)
--- NOTE | 2021-03-01 17:37 | P.EN_ITS ---
Event Note Date of Service: 03/01/21 Event Note: Despite 0.5mg IV digoxin 2.5hr ago. RVR still 130s, BP 101/34. Pt with paroxysmal AF, was in NSR at [facility] 02/11/21 and 01/20/21. Has been on Eliquis since Mar 2018 when she first presented with AF. Will give amiodarone IV.
--- NOTE | 2021-03-01 17:44 | PC.NURSE ---
Dr Domingo aware of persistent rapid afib, and BP new order for Amio
[2021-03-01] MEDS: 0.9 % Sodium Chloride 500 ML IV (18:17)
[2021-03-01] MEDS: Amiodarone/Dextrose 150 MG/100 ML PLAST..BAG 600 MG IV (18:19)
[2021-03-01 18:27] LABS: Reflex Lactate? 2 Y
[2021-03-01 19:18] LABS: ~Lactic Acid-LAB USE ONLY 1.8 mmol/L (0.5-2.0)
[2021-03-01] MEDS: Pravastatin Sodium 40 MG TABLET PO (19:54)
[2021-03-01] MEDS: Apixaban 5 MG TABLET PO (19:54)
[2021-03-01] MEDS: oxyCODONE HCl ER 10 MG TAB.ER.12H PO (19:54)
[2021-03-01] MEDS: Metoprolol Tartrate 12.5 MG HALFTAB PO (19:54)
[2021-03-01] MEDS: LORazepam 0.5 MG TABLET PO (19:54)
[2021-03-01] MEDS: Amiodarone HCL 900 MG in 0.9 % Sodium Chloride 500 ML 34.53 MG IVCONT (19:55)
[2021-03-01] MEDS: Insulin Glargine,Hum.rec.anlog 100 UNIT/ML 10 ML VIAL 16 UNIT SUBCUT (20:08)
--- NOTE | 2021-03-01 21:59 | PC.NURSE ---
PATIENT RESTING COMFORTABLY ON BED, ABLE TO TURN AND REPOSITION HERSELF. NO ACUTE CHANGES TO WOUND IN DORIAN AREA, PATIENT REPORTING PAIN INCREASES WITH DEFECATING. PAIN IS 4/10 AT THIS TIME PATIENT IS SLEEPING ON AND OFF. NO ACUTE DISTRESS NOTED. MEDICATED WITH NIGHT MEDICATIONS WITHOUT DIFFICULTY. AWAITING BED ASSIGNMENT HAS BEEN EVALUATED BY HOSPITALIST. AMIODARONE DRIP CONTINUES TO RUN PATIENTS HEART RATE IS NOW 89.
--- NOTE | 2021-03-01 23:07 | PM.EVENT ---
Event Note Date of Service: 03/01/21 Event Note: pt's amio drip was placed on hld given hypotension. started on po amiodarone
--- NOTE | 2021-03-01 23:07 | PC.NURSE ---
hospitalist called due to b/p being low due to amiodarone drip. drip paused at this time. provider stating will review chart and put in po medications. patient sleeping comfortably
[2021-03-02] VITALS (11 sets, daily range): BP systolic 94–111; BP diastolic 34–60; PULSE 62–76; RESP 14–20; TEMP 36.2–36.4; O2SAT 95–100; BMI 28.9
[2021-03-02] MEDS: Piperacillin Sodium/Tazobactam 3.375 GM in 0.9 % Sodium Chloride 50 ML IV ×5 (00:46→23:46)
[2021-03-02] MEDS: Omeprazole 20 MG CAPSULE.DR PO (05:54)
--- NOTE | 2021-03-02 06:29 | PC.NURSE ---
PATIENT RESTING MOST OF THE NIGHT, DORIAN CARE TAKEN AT 3AM, BEDDING CHANGED. PATIENT DIFFICULT TIME TOLERATING, PAIN WITH INCONTINENCE. WOUND IS OPEN BRIGHT RED BLEEDING TO BEDDING AND WHEN WIPING. PATIENT ABLE TO GO BACK TO SLEEP. CONTROLLED A.FIB ON MONITOR AT 68, AMNIODORONE DRIP PAUSED DUE TO LOW MAP AND B/P. PATIENT EASILY AROUSABLE, CONFUSED AT TIMES WHEN WAKING FROM SLEEP. PLAN OF CARE FOR ADMISSION TO HOSPITAL.
--- NOTE | 2021-03-02 06:45 | PC.NURSE ---
REPORT GIVEN TO [facility] NURSING MANAGER OF SECURITY, STATING SHE WILL GIVE REPORT TO THE DAY SHIFT NURSE AND ASSIGN A ROOM FOR THE PATIENT AT 7AM. REPORT WILL ALREADY BE GIVEN AND THE PATIENT CAN COME RIGHT TO THE FLOOR ONCE THE DAY SHIFT NURSES ARRIVE.
[2021-03-02 07:57] LABS: Anion Gap 11 (12-20); Blood Urea Nitrogen 7 mg/dL (9-16); Calcium 7.4 mg/dL (8.4-10.2); Carbon Dioxide 22 mmol/L (22-29); Chloride 109 mmol/L (96-108); Creatinine Clr Calc Pharmacy 73.4; Estimated Glomerular Filt Rate > 60; Glucose Random 92 mg/dL (60-115); Magnesium 1.5 mg/dL (1.6-2.6); Potassium 3.8 mmol/L (3.3-5.1); Sodium 138 mmol/L (135-145)
[2021-03-02] MEDS: 0.9 % Sodium Chloride Flush 3 ML SYRINGE IVFLUSH ×3 (09:02→20:51)
[2021-03-02] MEDS: Ferrous Sulfate 324 MG TABLET.DR PO (09:08)
[2021-03-02] MEDS: Cholecalciferol (Vitamin D3) 25 MCG TABLET 50 MCG PO (09:08)
[2021-03-02] MEDS: LORazepam 0.5 MG TABLET PO ×2 (09:08→20:50)
[2021-03-02] MEDS: oxyCODONE HCl ER 10 MG TAB.ER.12H PO ×2 (09:08→20:50)
[2021-03-02] MEDS: Metoprolol Tartrate 12.5 MG HALFTAB PO (09:08)
[2021-03-02] MEDS: Amiodarone HCL 200 MG TABLET 400 MG PO ×2 (09:08→20:50)
[2021-03-02] MEDS: Cyanocobalamin (Vitamin B-12) 1,000 MCG TABLET 1000 MCG PO (09:08)
[2021-03-02] MEDS: DULoxetine HCl 60 MG CAPSULE.DR PO (09:08)
[2021-03-02] MEDS: Apixaban 5 MG TABLET PO ×2 (09:09→20:50)
[2021-03-02 09:18] LABS: Hemoglobin 9.3 g/dl (12.0-16.0); Mean Corpuscular HGB Conc 32.1 g/dl (31.0-35.0); Mean Corpuscular Hemoglobin 24.7 pg (27.0-33.0); Mean Corpuscular Volume 76.9 fL (80.0-98.0); Mean Platelet Volume 10.7 fL (9.4-12.3); Platelet Count 371 X10*3/uL (160-400); Red Blood Count 3.77 X10*6/uL (4.20-5.50); Red Cell Distribution Width 16.4 % (11.0-16.0); White Blood Count 4.2 X10*3/uL (4.8-10.8)
[2021-03-02 11:39] LABS: Glucose, Whole Blood 80 mg/dL (60-115)
--- NOTE | 2021-03-02 12:04 | HE.PHANOTE ---
Vancomycin Dosing - Addendum Patient SCr decrease from 0.72 to 0.59. Current regimen of 1000 mg daily was be subtheraputic with an AUC of 296 at steady state. Will increase dose to 1500 mg q24h to on 03/03 @ 1300 create a predicted AUC of 411 with a trough of 10. Trough will be drawn 03/04 @ 1100. Pharmacy will continue to monitor renal function daily. Trupti Ballesteros, PharmD
--- NOTE | 2021-03-02 12:19 | P.CONCA_ITS ---
History of Present Illness History of Present Illness Date of Service: 03/02/21 Chief complaint: sev sepsis/wound infection/af+rvr/covid 19 Narrative: This is a cardiology consultation regarding atrial fibrillation. Patient herself denies any specific cardiac symptoms. She denies any angina or shortness of breath or palpitations or in fact anything else at home. It seems that she does have a history of proximal atrial fibrillation for which she takes apixaban. Multiple other medical comorbidities including wall or cancer, history of chemoradiation and recent chemotherapy at [facility]. In this hospitalization, she is positive for COVID. However from the cardiac standpoint no symptoms. She has been noted to be in atrial fibrillation with rapid rate at the time of arrival but currently seems to be in sinus rhythm. Denies any history of coronary disease and fact any cardiac issues otherwise. Review of Systems Review of Systems: Yes all other systems are reviewed and are negative Cardiovascular: Cardiovascular: Reports as per HPI, Reports no additional cardiovascular complaints, Denies acrocyanosis, Denies cool extremities, Denies painful fingertips, Denies chest pain, Denies chest pain at rest, Denies diaphoresis, Denies syncope, Denies irregular heart rhythm, Denies claudication, Denies leg edema, Denies lightheadedness, Denies palpitations and Denies dyspnea Respiratory: Respiratory: Denies dyspnea Neurologic: Denies syncope Endocrine: Endocrine: Denies palpitations PMFSH Past Medical History Medical History Anticoagulated Atrial fibrillation Chronic pain Depression Diabetes Failure to thrive in adult History of ovarian cancer History of uterine cancer Vulvar cancer Family History Family History (Updated 03/02/21 @ 12:21 by Rogerio Ochoa MD) Mother CAD (coronary artery disease) Surgical History Surgical History History of appendectomy History of carpal tunnel release History of cholecystectomy History of hysterectomy for cancer History of knee replacement History of salpingo-oophorectomy History of vulvectomy Social History Social History Household Members: Spouse Housing: Apartment Do you presently have visiting nurse or other home services: No Patient Tobacco Use Status: Never used Tobacco Meds Allergies Allergy/AdvReac Type Severity Reaction Status Date / Time No Known Allergies Allergy Verified 03/01/21 11:33 Active Medications: Current Medications Acetaminophen (Acetaminophen 325 Mg Tablet) 650 mg PO Q6H PRN PRN Reason: Pain, Mild (Pain Scale 1-3) Albuterol Sulfate (Albuterol Sulfate 90 Mcg 8 Gm Inhaler) 2 puff INHALE Q6H PRN PRN Reason: Shortness Of Breath Or Wheezing Amiodarone HCl (Amiodarone Hcl 200 Mg Tablet) 400 mg PO DAILY [facility] Last Admin: 03/02/21 09:08 Dose: 400 mg Documented by: Apixaban (Apixaban 5 Mg Tablet) 5 mg PO BID [facility] Last Admin: 03/02/21 09:09 Dose: 5 mg Documented by: Cyanocobalamin (Cyanocobalamin (Vitamin B-12) 1,000 Mcg Tablet) 1,000 mcg PO DA MARY [facility] Last Admin: 03/02/21 09:08 Dose: 1,000 mcg Documented by: Duloxetine HCl (Duloxetine Hcl 60 Mg Capsule.) 60 mg PO DAILY [facility] Last Admin: 03/02/21 09:08 Dose: 60 mg Documented by: Ferrous Sulfate (Ferrous Sulfate 324 Mg Tablet.) 324 mg PO DAILY [facility] Last Admin: 03/02/21 09:08 Dose: 324 mg Documented by: Hydromorphone HCl (Hydromorphone Hcl 0.5 Mg/0.5 Ml Syringe) 0.5 mg IVPUSH Q2H PRN; Protocol PRN Reason: severe pain Piperacillin Sod/Tazobactam (Sod 3.375 gm/ Sodium Chloride) 50 mls @ 100 mls/hr IV Q6H [facility] Last Admin: 03/02/21 11:54 Dose: 100 mls/hr Documented by: Amiodarone HCl 900 mg/ Sodium (Chloride) 518 mls @ 34.533 mls/hr IVCONT .Q15H1M [facility]; Protocol Last Admin: 03/02/21 09:09 Dose: Not Given Documented by: Vancomycin HCl 1,500 mg/ (Sodium Chloride) 500 mls @ 333.333 mls/hr IV Q24H [facility] Insulin Glargine (Insulin Glargine,Hum.Rec.Anlog 100 Unit/Ml 10 Ml Vial) 16 unit SUBCUT BEDTIME [facility] Last Admin: 03/01/21 20:08 Dose: 16 unit Documented by: Loperamide HCl (Loperamide Hcl 2 Mg Capsule) 4 mg PO Q4H PRN PRN Reason: diarrhea Lorazepam (Lorazepam 0.5 Mg Tablet) 0.5 mg PO BID [facility] Last Admin: 03/02/21 09:08 Dose: 0.5 mg Documented by: Metoprolol Tartrate (Metoprolol Tartrate 12.5 Mg Halftab) 12.5 mg PO BID [facility]; Protocol Last Admin: 03/02/21 09:08 Dose: 12.5 mg Documented by: Omeprazole (Omeprazole 20 Mg Capsule.Dr) 20 mg PO DAILY@0630 [facility] Last Admin: 03/02/21 05:54 Dose: 20 mg Documented by: Ondansetron HCl (Ondansetron Hcl 4 Mg/2 Ml Vial) 4 mg IVPUSH Q8H PRN PRN Reason: Nausea and Vomiting Oxycodone HCl (Oxycodone Hcl Immed Release 5 Mg Tablet) 5 mg PO Q12H PRN PRN Reason: Pain (Scale Score 4-6) Oxycodone HCl (Oxycodone Hcl Er 10 Mg Tab.Er.12h) 10 mg PO BID [facility] Last Admin: 03/02/21 09:08 Dose: 10 mg Documented by: Pharmacy Consult (Consult Rx Perform Med Rec) 1 each MISCELLANE ONCE PRN PRN Reason: Consult order Pravastatin Sodium (Pravastatin Sodium 40 Mg Tablet) 40 mg PO BEDTIME [facility] Last Admin: 03/01/21 19:54 Dose: 40 mg Documented by: Sodium Chloride (0.9 % Sodium Chloride Flush 3 Ml Syringe) 3 ml IVFLUSH QSHIFT [facility] Last Admin: 03/02/21 09:02 Dose: 3 ml Documented by: Vitamin D (Cholecalciferol (Vitamin D3) 25 Mcg Tablet) 50 mcg PO DAILY [facility] Last Admin: 03/02/21 09:08 Dose: 50 mcg Documented by: Home Medications Medication Instructions Recorded Confirmed Last Taken Type Magic Mouthwash 10 ml PO TIDAC 03/01/21 03/01/21 Unknown History albuterol sulfate 90 mcg/actuation 2 puff INHALATION Q6H PRN 03/01/21 03/01/21 Unknown History aerosol inhaler (ProAir HFA) apixaban 5 mg tablet 5 mg PO BID 03/01/21 03/01/21 03/01/21 History cholecalciferol (vitamin D3) 50 50 mcg PO DAILY 03/01/21 03/01/21 03/01/21 History mcg (2,000 unit) capsule (Vitamin D3) cyanocobalamin (vitamin B-12) 1,000 mcg PO DAILY 03/01/21 03/01/21 03/01/21 History 1,000 mcg tablet docusate sodium 100 mg capsule 100 mg PO BID 03/01/21 03/01/21 03/01/21 History duloxetine 60 mg capsule,delayed 60 mg PO DAILY 03/01/21 03/01/21 03/01/21 History release ferrous sulfate 324 mg (65 mg 324 mg PO DAILY 03/01/21 03/01/21 03/01/21 History iron) tablet,delayed release insulin glargine 100 unit/mL 16 unit SUBCUT BEDTIME 03/01/21 03/01/21 02/28/21 History subcutaneous solution (Lantus U-100 Insulin) insulin lispro 100 unit/mL 1 sliding scale dose SUBCUT QIDACHS 03/01/21 03/01/21 Unknown History subcutaneous solution (Humalog U-100 Insulin) loperamide 2 mg tablet 2 mg PO Q8H PRN 03/01/21 03/01/21 Unknown History lorazepam 0.5 mg tablet 0.5 mg PO BID 03/01/21 03/01/21 03/01/21 History lovastatin 40 mg tablet 40 mg PO BEDTIME 03/01/21 03/01/21 02/28/21 History metoprolol tartrate 25 mg tablet 12.5 mg PO BID 03/01/21 03/01/21 03/01/21 History omeprazole 20 mg capsule,delayed 20 mg PO DAILY@0630 03/01/21 03/01/21 03/01/21 History release oxycodone 10 mg tablet,crush 10 mg PO BID 03/01/21 03/01/21 03/01/21 History resistant,extended release 12 hr (OxyContin) oxycodone 5 mg tablet 5 mg PO Q12H PRN 03/01/21 03/01/21 Unknown History polyethylene glycol 3350 17 17 g PO DAILY 03/01/21 03/01/21 Unknown History gram/dose oral powder (Miralax) prochlorperazine maleate 10 mg 10 mg PO Q6H PRN 03/01/21 03/01/21 Unknown History tablet Physical Exam Vital Signs: Vital Signs: Last Vital Signs Temp 97.3 F 03/02/21 11:12 Pulse 69 03/02/21 11:12 Resp 14 03/02/21 11:12 BP 99/51 L 03/02/21 11:12 Pulse Ox 98 03/02/21 11:12 BMI result Body Mass Index 28.9 Objective Labs and Meds Result diagrams: 03/02/21 07:23 03/02/21 07:23 Lab results: Laboratory Results - last 24 hr 03/01/21 03/01/21 03/01/21 12:14 12:14 12:14 WBC 5.8 RBC 4.69 Hgb 11.7 L Hct 36.8 L MCV 78.5 L MCH 24.9 L MCHC 31.8 RDW 16.5 H Plt Count 361 MPV 10.1 Immature Gran % (Auto) Cancelled Neut % (Auto) Cancelled Lymph % (Auto) Cancelled [place] % (Auto) Cancelled Eos % (Auto) Cancelled Baso % (Auto) Cancelled Lymph # (Auto) Cancelled [place] # (Auto) Cancelled Eos # (Auto) Cancelled Baso # (Auto) Cancelled Abs Immat Gran (auto) Cancelled Absolute Neuts (auto) Cancelled Absolute Nucleated RBC 0.000 Nucleated RBC % (auto) 0.0 Neutrophils % (Manual) 80 H Band Neutrophils % 9 H Lymphocytes % (Manual) 3 L Monocytes % (Manual) 8 Abs Neuts (Manual) 5.2 Lymphocytes # (Manual) 0.2 L Monocytes # (Manual) 0.5 Platelet Estimate NORMAL Large Platelets PRESENT Plt Morphology Comment NOTED RBC Morphology NOTED Ovalocytes 1+ (5-14) [place] Cells 2+ (3-5) Rouleaux PRESENT ESR 39 H PT 15.3 H INR 1.3 H APTT 29.7 Sodium Potassium Chloride Carbon Dioxide Anion Gap BUN Creatinine Estim Creat Clear Calc Estimated GFR POC Glucose Random Glucose Lactic Acid Lactic Acid F/U @ 2Hr Lactic Acid F/U @ 4Hr Calcium Magnesium Ferritin Total Bilirubin Direct Bilirubin AST ALT Alkaline Phosphatase Lactate Dehydrogenase Total Creatine Kinase Troponin I High Sens C-Reactive Protein B-Natriuretic Peptide Total Protein Albumin Procalcitonin 03/01/21 03/01/21 03/01/21 12:14 12:14 12:14 WBC RBC Hgb Hct MCV MCH MCHC RDW Plt Count MPV Immature Gran % (Auto) Neut % (Auto) Lymph % (Auto) [place] % (Auto) Eos % (Auto) Baso % (Auto) Lymph # (Auto) [place] # (Auto) Eos # (Auto) Baso # (Auto) Abs Immat Gran (auto) Absolute Neuts (auto) Absolute Nucleated RBC Nucleated RBC % (auto) Neutrophils % (Manual) Band Neutrophils % Lymphocytes % (Manual) Monocytes % (Manual) Abs Neuts (Manual) Lymphocytes # (Manual) Monocytes # (Manual) Platelet Estimate Large Platelets Plt Morphology Comment RBC Morphology Ovalocytes [place] Cells Rouleaux ESR PT INR APTT Sodium 135 Potassium 3.7 Chloride 98 Carbon Dioxide 25 Anion Gap 16 BUN 8 L Creatinine 0.72 Estim Creat Clear Calc 60.1 Estimated GFR > 60 POC Glucose Random Glucose 207 H Lactic Acid 3.6 H* Lactic Acid F/U @ 2Hr Lactic Acid F/U @ 4Hr Calcium 8.3 L Magnesium 1.6 Ferritin Total Bilirubin 0.4 Direct Bilirubin 0.3 AST 35 H ALT 13 Alkaline Phosphatase 112 Lactate Dehydrogenase 203 Total Creatine Kinase 20 L Troponin I High Sens 3.7 C-Reactive Protein 14.58 H B-Natriuretic Peptide 270 H Total Protein 5.4 L Albumin 2.3 L Procalcitonin 03/01/21 03/01/21 03/01/21 12:14 12:14 16:25 WBC RBC Hgb Hct MCV MCH MCHC RDW Plt Count MPV Immature Gran % (Auto) Neut % (Auto) Lymph % (Auto) [place] % (Auto) Eos % (Auto) Baso % (Auto) Lymph # (Auto) [place] # (Auto) Eos # (Auto) Baso # (Auto) Abs Immat Gran (auto) Absolute Neuts (auto) Absolute Nucleated RBC Nucleated RBC % (auto) Neutrophils % (Manual) Band Neutrophils % Lymphocytes % (Manual) Monocytes % (Manual) Abs Neuts (Manual) Lymphocytes # (Manual) Monocytes # (Manual) Platelet Estimate Large Platelets Plt Morphology Comment RBC Morphology Ovalocytes [place] Cells Rouleaux ESR PT INR APTT Sodium Potassium Chloride Carbon Dioxide Anion Gap BUN Creatinine Estim Creat Clear Calc Estimated GFR POC Glucose Random Glucose Lactic Acid Lactic Acid F/U @ 2Hr 2.3 H* Lactic Acid F/U @ 4Hr Calcium Magnesium Ferritin 525 H Total Bilirubin Direct Bilirubin AST ALT Alkaline Phosphatase Lactate Dehydrogenase Total Creatine Kinase Troponin I High Sens C-Reactive Protein B-Natriuretic Peptide Total Protein Albumin Procalcitonin 0.09 03/01/21 03/02/21 03/02/21 19:02 07:23 07:23 WBC 4.2 L RBC 3.77 L Hgb 9.3 L D Hct 29.0 L D MCV 76.9 L MCH 24.7 L MCHC 32.1 RDW 16.4 H Plt Count 371 MPV 10.7 Immature Gran % (Auto) Neut % (Auto) Lymph % (Auto) [place] % (Auto) Eos % (Auto) Baso % (Auto) Lymph # (Auto) [place] # (Auto) Eos # (Auto) Baso # (Auto) Abs Immat Gran (auto) Absolute Neuts (auto) Absolute Nucleated RBC 0.000 Nucleated RBC % (auto) 0.0 Neutrophils % (Manual) Band Neutrophils % Lymphocytes % (Manual) Monocytes % (Manual) Abs Neuts (Manual) Lymphocytes # (Manual) Monocytes # (Manual) Platelet Estimate Large Platelets Plt Morphology Comment RBC Morphology Ovalocytes [place] Cells Rouleaux ESR PT INR APTT Sodium 138 Potassium 3.8 Chloride 109 H Carbon Dioxide 22 Anion Gap 11 L BUN 7 L Creatinine 0.59 Estim Creat Clear Calc 73.4 Estimated GFR > 60 POC Glucose Random Glucose 92 Lactic Acid Lactic Acid F/U @ 2Hr Lactic Acid F/U @ 4Hr 1.8 Calcium 7.4 L D Magnesium 1.5 L Ferritin Total Bilirubin Direct Bilirubin AST ALT Alkaline Phosphatase Lactate Dehydrogenase Total Creatine Kinase Troponin I High Sens C-Reactive Protein B-Natriuretic Peptide Total Protein Albumin Procalcitonin 03/02/21 11:13 WBC RBC Hgb Hct MCV MCH MCHC RDW Plt Count MPV Immature Gran % (Auto) Neut % (Auto) Lymph % (Auto) [place] % (Auto) Eos % (Auto) Baso % (Auto) Lymph # (Auto) [place] # (Auto) Eos # (Auto) Baso # (Auto) Abs Immat Gran (auto) Absolute Neuts (auto) Absolute Nucleated RBC Nucleated RBC % (auto) Neutrophils % (Manual) Band Neutrophils % Lymphocytes % (Manual) Monocytes % (Manual) Abs Neuts (Manual) Lymphocytes # (Manual) Monocytes # (Manual) Platelet Estimate Large Platelets Plt Morphology Comment RBC Morphology Ovalocytes [place] Cells Rouleaux ESR PT INR APTT Sodium Potassium Chloride Carbon Dioxide Anion Gap BUN Creatinine Estim Creat Clear Calc Estimated GFR POC Glucose 80 Random Glucose Lactic Acid Lactic Acid F/U @ 2Hr Lactic Acid F/U @ 4Hr Calcium Magnesium Ferritin Total Bilirubin Direct Bilirubin AST ALT Alkaline Phosphatase Lactate Dehydrogenase Total Creatine Kinase Troponin I High Sens C-Reactive Protein B-Natriuretic Peptide Total Protein Albumin Procalcitonin ECG Interpretation: EKG with atrial fibrillation at a rate of 157/Min with PVCs or aberrant conduction. Currently in sinus rhythm. Imaging Radiologist's impression: Impressions Chest X-Ray 03/01/21 13:15 IMPRESSION: Unremarkable chest examination. Abdomen/Pelvis CT 03/01/21 14:07 IMPRESSION: No acute intra-abdominal process seen. Diffuse cellulitis, small amount of ascites and moderate presacral soft tissue thickening likely postradiation or postinflammatory changes. There is nonspecific mild mural thickening involving distal descending and sigmoid colon question post radiation changes. There are a few scattered diverticula but no suggestion for diverticulitis. Mild prominent left adrenal gland measuring 1.1 cm. Assessment and Plan (1) Atrial fibrillation with rapid ventricular response: Status: Acute (2) COVID-19: Status: Acute (3) Wound cellulitis: Status: Acute She is currently in normal sinus rhythm although she was in atrial fibrillation upon arrival. Clinically no symptoms whatsoever. She has been started on amiodarone that seems quite reasonable. That can be continued at 400 mg b.i.d. for now. Otherwise she is already on anticoagulation. Per H and P, mention of normal echocardiogram from [facility] from last year and considering acute COVID, we will hold off repeating it. Procedures Date of Service Date of Service: 03/02/21
--- NOTE | 2021-03-02 12:52 | MHC.CM.PN ---
pt from anuj lawler mailed to spouse yaneth it is expected that pt will retrun when dc d
--- NOTE | 2021-03-02 13:04 | PM.CNGS ---
History of Present Illness Consult details Consult date: 03/02/21 Narrative: 75-year-old female with history of vulvar carcinoma, stage III, with recent radiation treatment, referred because of skin changes secondary to radiation treatment, on the area of the perineum and buttocks. [facility] and was sent to the ER yesterday because of her complaints of pain her radiation skin changes. Her open wounds were noted to be contaminated with feces in the ER. She is currently undergoing chemotherapy for her advanced and recurrent vulvar carcinoma. She was also noted to be in fibrillation with rapid ventricular response and is currently in the [facility] unit. She also tested positive admission and is therefore in [place] [facility] [place] She describes chronic pain on all the radiated areas of perineum and the buttocks S specially at the area of the gluteal cleft as well. She has minimal mobility and therefore has frequent so healing of the area with movements. Review of Systems Constitutional: Constitutional: Denies chills and Denies fever(s) Cardiovascular: Cardiovascular: Denies chest pain, Denies dyspnea and Reports dyspnea on exertion Respiratory: Respiratory: Denies cough, Denies dyspnea and Reports dyspnea on exertion Gastrointestinal: Gastrointestinal: Denies hematochezia and Denies change in bowel habits Genitourinary: Genitourinary: Reports abnormal vaginal bleeding, Denies hematuria, Reports dysuria and Reports vaginal discharge Musculoskeletal: Musculoskeletal: Reports back pain, Reports myalgias and Reports limited range of motion Neurologic: Denies focal weakness and Denies convulsions Psychiatric: Psychiatric: Denies depression and Denies mood swings PMFSH Past Medical History Medical History Anticoagulated Atrial fibrillation Chronic pain Depression Diabetes Failure to thrive in adult History of ovarian cancer History of uterine cancer 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 Vulvar cancer Family History Family History Mother CAD (coronary artery disease) Surgical History Surgical History History of appendectomy History of carpal tunnel release History of cholecystectomy History of hysterectomy for cancer History of knee replacement History of salpingo-oophorectomy History of vulvectomy Social History Social History Household Members: Spouse Housing: Apartment Do you presently have visiting nurse or other home services: No Patient Tobacco Use Status: Never used Tobacco service: No Meds Allergies Allergy/AdvReac Type Severity Reaction Status Date / Time No Known Allergies Allergy Verified 03/01/21 11:33 Active Medications: Current Medications Acetaminophen (Acetaminophen 325 Mg Tablet) 650 mg PO Q6H PRN PRN Reason: Pain, Mild (Pain Scale 1-3) Albuterol Sulfate (Albuterol Sulfate 90 Mcg 8 Gm Inhaler) 2 puff INHALE Q6H PRN PRN Reason: Shortness Of Breath Or Wheezing Amiodarone HCl (Amiodarone Hcl 200 Mg Tablet) 400 mg PO DAILY [facility] Last Admin: 03/02/21 09:08 Dose: 400 mg Documented by: Apixaban (Apixaban 5 Mg Tablet) 5 mg PO BID [facility] Last Admin: 03/02/21 09:09 Dose: 5 mg Documented by: Cyanocobalamin (Cyanocobalamin (Vitamin B-12) 1,000 Mcg Tablet) 1,000 mcg PO DAILY [facility] Last Admin: 03/02/21 09:08 Dose: 1,000 mcg Documented by: Duloxetine HCl (Duloxetine Hcl 60 Mg Capsule.) 60 mg PO DAILY [facility] Last Admin: 03/02/21 09:08 Dose: 60 mg Documented by: Ferrous Sulfate (Ferrous Sulfate 324 Mg Tablet.) 324 mg PO DAILY [facility] Last Admin: 03/02/21 09:08 Dose: 324 mg Documented by: Hydromorphone HCl (Hydromorphone Hcl 0.5 Mg/0.5 Ml Syringe) 0.5 mg IVPUSH Q2H PRN; Protocol PRN Reason: severe pain Piperacillin Sod/Tazobactam (Sod 3.375 gm/ Sodium Chloride) 50 mls @ 100 mls/hr IV Q6H [facility] Last Admin: 03/02/21 11:54 Dose: 100 mls/hr Documented by: Amiodarone HCl 900 mg/ Sodium (Chloride) 518 mls @ 34.533 mls/hr IVCONT .Q15H1M [facility]; Protocol Last Admin: 03/02/21 09:09 Dose: Not Given Documented by: Vancomycin HCl 1,500 mg/ (Sodium Chloride) 500 mls @ 333.333 mls/hr IV Q24H [facility] Insulin Glargine (Insulin Glargine,Hum.Rec.Anlog 100 Unit/Ml 10 Ml Vial) 16 unit SUBCUT BEDTIME [facility] Last Admin: 03/01/21 20:08 Dose: 16 unit Documented by: Loperamide HCl (Loperamide Hcl 2 Mg Capsule) 4 mg PO Q4H PRN PRN Reason: diarrhea Lorazepam (Lorazepam 0.5 Mg Tablet) 0.5 mg PO BID [facility] Last Admin: 03/02/21 09:08 Dose: 0.5 mg Documented by: Metoprolol Tartrate (Metoprolol Tartrate 12.5 Mg Halftab) 12.5 mg PO BID [facility]; Protocol Last Admin: 03/02/21 09:08 Dose: 12.5 mg Documented by: Omeprazole (Omeprazole 20 Mg Capsule.Dr) 20 mg PO DAILY@0630 [facility] Last Admin: 03/02/21 05:54 Dose: 20 mg Documented by: Ondansetron HCl (Ondansetron Hcl 4 Mg/2 Ml Vial) 4 mg IVPUSH Q8H PRN PRN Reason: Nausea and Vomiting Oxycodone HCl (Oxycodone Hcl Immed Release 5 Mg Tablet) 5 mg PO Q12H PRN PRN Reason: Pain (Scale Score 4-6) Oxycodone HCl (Oxycodone Hcl Er 10 Mg Tab.Er.12h) 10 mg PO BID [facility] Last Admin: 03/02/21 09:08 Dose: 10 mg Documented by: Pharmacy Consult (Consult Rx Perform Med Rec) 1 each MISCELLANE ONCE PRN PRN Reason: Consult order Pravastatin Sodium (Pravastatin Sodium 40 Mg Tablet) 40 mg PO BEDTIME [facility] Last Admin: 03/01/21 19:54 Dose: 40 mg Documented by: Sodium Chloride (0.9 % Sodium Chloride Flush 3 Ml Syringe) 3 ml IVFLUSH QSHIFT [facility] Last Admin: 03/02/21 09:02 Dose: 3 ml Documented by: Vitamin D (Cholecalciferol (Vitamin D3) 25 Mcg Tablet) 50 mcg PO DAILY [facility] Last Admin: 03/02/21 09:08 Dose: 50 mcg Documented by: Home Medications Medication Instructions Recorded Confirmed Last Taken Type Magic Mouthwash 10 ml PO TIDAC 03/01/21 03/01/21 Unknown History albuterol sulfate 90 mcg/actuation 2 puff INHALATION Q6H PRN 03/01/21 03/01/21 Unknown History aerosol inhaler (ProAir HFA) apixaban 5 mg tablet 5 mg PO BID 03/01/21 03/01/21 03/01/21 History cholecalciferol (vitamin D3) 50 50 mcg PO DAILY 03/01/21 03/01/21 03/01/21 History mcg (2,000 unit) capsule (Vitamin D3) cyanocobalamin (vitamin B-12) 1,000 mcg PO DAILY 03/01/21 03/01/21 03/01/21 History 1,000 mcg tablet duloxetine 60 mg capsule,delayed 60 mg PO DAILY 03/01/21 03/01/21 03/01/21 History release ferrous sulfate 324 mg (65 mg 324 mg PO DAILY 03/01/21 03/01/21 03/01/21 History iron) tablet,delayed release insulin glargine 100 unit/mL 16 unit SUBCUT BEDTIME 03/01/21 03/01/21 02/28/21 History subcutaneous solution (Lantus U-100 Insulin) insulin lispro 100 unit/mL 1 sliding scale dose SUBCUT QIDACHS 03/01/21 03/01/21 Unknown History subcutaneous solution (Humalog U-100 Insulin) loperamide 2 mg tablet 2 mg PO Q8H PRN 03/01/21 03/01/21 Unknown History lorazepam 0.5 mg tablet 0.5 mg PO BID 03/01/21 03/01/21 03/01/21 History lovastatin 40 mg tablet 40 mg PO BEDTIME 03/01/21 03/01/21 02/28/21 History metoprolol tartrate 25 mg tablet 12.5 mg PO BID 03/01/21 03/01/21 03/01/21 History omeprazole 20 mg capsule,delayed 20 mg PO DAILY@0630 03/01/21 03/01/21 03/01/21 History release oxycodone 10 mg tablet,crush 10 mg PO BID 03/01/21 03/01/21 03/01/21 History resistant,extended release 12 hr (OxyContin) oxycodone 5 mg tablet 5 mg PO Q12H PRN 03/01/21 03/01/21 Unknown History prochlorperazine maleate 10 mg 10 mg PO Q6H PRN 03/01/21 03/01/21 Unknown History tablet Physical Exam Vital Signs: Vital Signs: Last Vital Signs Temp 97.3 F 03/02/21 11:12 Pulse 69 03/02/21 11:12 Resp 14 03/02/21 11:12 BP 99/51 L 03/02/21 11:12 Pulse Ox 98 03/02/21 11:12 BMI result Body Mass Index 28.9 Const: Other: Appears frail with mobility in bed, complains of pain on her perineum, answers questions well Resp: Effort & Inspection: normal respiratory effort Cardio: Rhythm: abnormal rhythm GI: Palpation (GI): Soft to palpation, not firm and nontender : Other: Radiation skin changes throughout her perineum with superficial breakdown, especially at the anal crease, left more than the right, as well as the gluteal cleft on the back, very tender to touch, no pus Results Labs Result diagrams: 03/04/21 06:03 03/09/21 06:11 Labs: Abnormal lab results 03/01/21 03/01/21 03/01/21 Range/Units 12:14 12:14 12:14 WBC (4.8-10.8) X10*3/uL RBC (4.20-5.50) X10*6/uL Hgb (12.0-16.0) g/dl Hct (37.0-47.0) % MCV (80.0-98.0) fL MCH (27.0-33.0) pg RDW (11.0-16.0) % Neutrophils % (Manual) 80 H (45-73) % Band Neutrophils % 9 H (3-5) % Lymphocytes % (Manual) 3 L (20-40) % Lymphocytes # (Manual) 0.2 L (1.2-4.9) X10*3/uL ESR 39 H (0-20) MM/HR Chloride (96-108) mmol/L Anion Gap (12-20) BUN (9-16) mg/dL Lactic Acid F/U @ 2Hr (0.5-2.0) mmol/L Calcium (8.4-10.2) mg/dL Magnesium (1.6-2.6) mg/dL Ferritin 525 H (10-250) ng/mL 03/01/21 03/02/2103/02/21 Range/Units 16:25 07:23 07:23 WBC 4.2 L (4.8-10.8) X10*3/uL RBC 3.77 L (4.20-5.50) X10*6/uL Hgb 9.3 L D (12.0-16.0) g/dl Hct 29.0 L D (37.0-47.0) % MCV 76.9 L (80.0-98.0) fL MCH 24.7 L (27.0-33.0) pg RDW 16.4 H (11.0-16.0) % Neutrophils % (Manual) (45-73) % Band Neutrophils % (3-5) % Lymphocytes % (Manual) (20-40) % Lymphocytes # (Manual) (1.2-4.9) X10*3/uL ESR (0-20) MM/HR Chloride 109 H (96-108) mmol/L Anion Gap 11 L (12-20) BUN 7 L (9-16) mg/dL Lactic Acid F/U @ 2Hr 2.3 H* (0.5-2.0) mmol/L Calcium 7.4 L D (8.4-10.2) mg/dL Magnesium 1.5 L (1.6-2.6) mg/dL Ferritin (10-250) ng/mL Short CBC 03/02/21 Range/Units 07:23 WBC 4.2 L (4.8-10.8) X10*3/uL Hgb 9.3 L D (12.0-16.0) g/dl Hct 29.0 L D (37.0-47.0) % Plt Count 371 (160-400) X10*3/uL BMP 03/02/21 07:23 Sodium 138 Potassium 3.8 Chloride 109 H Carbon Dioxide 22 BUN 7 L Creatinine 0.59 Calcium 7.4 L D All other labs normal. 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 She therefore has had subsequent lesions skin changes on the perineum as well as the gluteal cleft. She has significant skin breakdown on some of these areas including the inguinal crease. She will benefit from good barrier cream as well as good anal hygiene. Unfortunately, she has poor mobility and therefore has frequent soilage of the perineum which complicates her skin breakdown. She also should be turned [id number] frequently. I have encouraged her to have better oral intake for nutritional up-building. She will benefit from consultation with [facility]ound [facility] as well. She has tested positive tube COVID but currently seems to be asymptomatic for this. She is also undergoing treatment for atrial fibrillation with rapid ventricular rate. Procedures Date of Service Date of Service: 03/02/21
[2021-03-02] MEDS: vancomycin HCL 1,500 MG in 0.9 % Sodium Chloride 500 ML 333.33 MG IV (13:36)
[2021-03-02] MEDS: HYDROmorphone HCl 0.5 MG/0.5 ML SYRINGE IVPUSH (13:53)
--- NOTE | 2021-03-02 16:07 | P.PNIM_ITS ---
Subjective Subjective Date of Service: 03/03/21 Interval History: Being followed for infected wound, denies fever, no worsening pain, no acute overnight issues converted to normal sinus rhythm with stable ventricular rate. Review of Systems Review of Systems: Yes all other systems are reviewed and are negative Physical Exam Vital Signs: Vital Signs: Last Vital Signs Temp 97.1 F 03/02/21 14:59 Pulse 62 03/02/21 14:59 Resp 20 03/02/21 14:59 BP 110/46 L 03/02/21 14:59 Pulse Ox 95 03/02/21 14:59 BMI result Body Mass Index 28.9 Gen: Awake alert x3 no acute distress appears chronically ill Neck: supple, no JVD Chest: R subclavian port Lungs: clear to auscultation bilaterally Heart: Regular rate rhythm, no murmurs Abd: soft, non-tender, non-distended, bowel sounds audible Ext: no edema Skin: warm/well-perfused, pale, sacral wound/vulvar wounds please refer to pictures in H&P notes Neuro: alert and oriented x3, no focal findings Psych: appropriate affect Objective Data Active Medications Acetaminophen (Acetaminophen 325 Mg Tablet) 650 mg PO Q6H PRN PRN Reason: Pain, Mild (Pain Scale 1-3) Albuterol Sulfate (Albuterol Sulfate 90 Mcg 8 Gm Inhaler) 2 puff INHALE Q6H PRN PRN Reason: Shortness Of Breath Or Wheezing Amiodarone HCl (Amiodarone Hcl 200 Mg Tablet) 400 mg PO DAILY [facility] Last Admin: 03/02/21 09:08 Dose: 400 mg Documented by: ADELAIDA Apixaban (Apixaban 5 Mg Tablet) 5 mg PO BID [facility] Last Admin: 03/02/21 09:09 Dose: 5 mg Documented by: ADELAIDA Cyanocobalamin (Cyanocobalamin (Vitamin B-12) 1,000 Mcg Tablet) 1,000 mcg PO DAILY [facility] Last Admin: 03/02/21 09:08 Dose: 1,000 mcg Documented by: ADELAIDA Duloxetine HCl (Duloxetine Hcl 60 Mg Capsule.) 60 mg PO DAILY [facility] Last Admin: 03/02/21 09:08 Dose: 60 mg Documented by: ADELAIDA Ferrous Sulfate (Ferrous Sulfate 324 Mg Tablet.) 324 mg PO DAILY [facility] Last Admin: 03/02/21 09:08 Dose: 324 mg Documented by: ADELAIDA Hydromorphone HCl (Hydromorphone Hcl 0.5 Mg/0.5 Ml Syringe) 0.5 mg IVPUSH Q2H PRN; Protocol PRN Reason: severe pain Last Admin: 03/02/21 13:53 Dose: 0.5 mg Documented by: ADELAIDA Piperacillin Sod/Tazobactam (Sod 3.375 gm/ Sodium Chloride) 50 mls @ 100 mls/hr IV Q6H [facility] Last Infusion: 03/02/21 12:25 Dose: 0 mls/hr Documented by: ADELAIDA Amiodarone HCl 900 mg/ Sodium (Chloride) 518 mls @ 34.533 mls/hr IVCONT .Q15H1M [facility]; Protocol Last Admin: 03/02/21 09:09 Dose: Not Given Documented by: ADELAIDA Non-Admin Reason: med paused Vancomycin HCl 1,500 mg/ (Sodium Chloride) 500 mls @ 333.333 mls/hr IV Q24H [facility] Last Admin: 03/02/21 13:36 Dose: 333.33 mls/hr Documented by: AEDLAIDA Insulin Glargine (Insulin Glargine,Hum.Rec.Anlog 100 Unit/Ml 10 Ml Vial) 16 unit SUBCUT BEDTIME [facility] Last Admin: 03/01/21 20:08 Dose: 16 unit Documented by: SUZAN Loperamide HCl (Loperamide Hcl 2 Mg Capsule) 4 mg PO Q4H PRN PRN Reason: diarrhea Lorazepam (Lorazepam 0.5 Mg Tablet) 0.5 mg PO BID [facility] Last Admin: 03/02/21 09:08 Dose: 0.5 mg Documented by: ADELAIDA Metoprolol Tartrate (Metoprolol Tartrate 12.5 Mg Halftab) 12.5 mg PO BID [facility]; Protocol Last Admin: 03/02/21 09:08 Dose: 12.5 mg Documented by: ADELAIDA Omeprazole (Omeprazole 20 Mg Capsule.) 20 mg PO DAILY@0630 [facility] Last Admin: 03/02/21 05:54 Dose: 20 mg Documented by: SUZAN Ondansetron HCl (Ondansetron Hcl 4 Mg/2 Ml Vial) 4 mg IVPUSH Q8H PRN PRN Reason: Nausea and Vomiting Oxycodone HCl (Oxycodone Hcl Immed Release 5 Mg Tablet) 5 mg PO Q12H PRN PRN Reason: Pain (Scale Score 4-6) Oxycodone HCl (Oxycodone Hcl Er 10 Mg Tab.Er.12h) 10 mg PO BID [facility] Last Admin: 03/02/21 09:08 Dose: 10 mg Documented by: ADELAIDA Pharmacy Consult (Consult Rx Perform Med Rec) 1 each MISCELLANE ONCE PRN PRN Reason: Consult order Pravastatin Sodium (Pravastatin Sodium 40 Mg Tablet) 40 mg PO BEDTIME [facility] Last Admin: 03/01/21 19:54 Dose: 40 mg Documented by: SUZAN Sodium Chloride (0.9 % Sodium Chloride Flush 3 Ml Syringe) 3 ml IVFLUSH QSHIFT [facility] Last Admin: 03/02/21 09:02 Dose: 3 ml Documented by: ADELAIDA Vitamin D (Cholecalciferol (Vitamin D3) 25 Mcg Tablet) 50 mcg PO DAILY [facility] Last Admin: 03/02/21 09:08 Dose: 50 mcg Documented by: ADELAIDA Labs CBC & Chem 7: 03/02/21 07:23 03/03/21 06:02 Labs: Laboratory Results - last 24 hr 03/01/21 03/01/21 03/02/21 16:25 19:02 07:23 MCV 76.9 L MCH 24.7 L MCHC 32.1 RDW 16.4 H Plt Count 371 MPV 10.7 Absolute Nucleated RBC 0.000 Nucleated RBC % (auto) 0.0 Anion Gap Estim Creat Clear Calc Estimated GFR POC Glucose Random Glucose Lactic Acid F/U @ 2Hr 2.3 H* Lactic Acid F/U @ 4Hr 1.8 Calcium Magnesium 03/02/21 03/02/21 07:23 11:13 MCV MCH MCHC RDW Plt Count MPV Absolute Nucleated RBC Nucleated RBC % (auto) Anion Gap 11 L Estim Creat Clear Calc 73.4 Estimated GFR > 60 POC Glucose 80 Random Glucose 92 Lactic Acid F/U @ 2Hr Lactic Acid F/U @ 4Hr Calcium 7.4 L D Magnesium 1.5 L Microbiology Microbiology Results: Microbiology 03/01/21 12:48 Blood Culture - Preliminary Blood - Venous No growth after 24 hours. 03/01/21 12:38 Blood Culture - Preliminary Blood - Venous No growth after 24 hours. 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 inguinal wounds, rapid ventricular response, and lactic acidosis.? She also has breakthrough Covid-19 infection, though is asymptomatic and not hypoxic. # AF/RVR -patient converted to normal sinus rhythm, received IV amiodarone drip and IV digoxin Case discussed with Cardiology will transition to by mouth amiodarone 400 mg b.i.d. Repeat EKG at a.m. to check for QTC , continue apixaban Since had a recent normal echocardiogram at [facility] will hold off on repeat echo continue tele monitor # wound infection/cellulitis No evidence of sepsis tachycardia on admission due to atrial fibrillation, low blood pressure after receiving IV Cardizem, no fevers history of recurrent vulvar carcinoma, stage III, with recent radiation treatment, skin changes secondary to radiation treatment, on the area of the perineum and buttocks. vancomycin and piperacillin/tazobactam day 2 Seen by General surgery they recommend wound care evaluation Await ID, and Wound Care input # breakthrough Covid-19 infection - had 2 doses of mRNA vaccination in the spring. stable oxygenation 95% on room, monitor for hypoxia and respiratory decompensation.? # diarrhea, post-chemotherapy - r/o C. diff by PCR and if negative, give loperamide prn # hypo magnesemia will replace and follow # DM2 - stable blood sugars, continue diabetic diet, basal/bolus insulin.? last A1c 7.2 on 12/24/20 # HLD - continue statin # mood disorder - continue duloxetine, lorazepam # chronic pain - continue long-acting oxycodone and prn short-acting oxycodone; and IV hydromorphone for breakthrough pain # VTE ppx - apixaban # code - full Quality Stroke Does the patient have a stroke diagnosis?: No VTE Prior VTE?: No VTE Risk Level:: Medical - moderate - high VTE Device Contraindication: N/A - Device Ordered VTE Drug Contraindication: N/A - Med Ordered
[2021-03-02 16:48] LABS: Glucose, Whole Blood 78 mg/dL (60-115)
[2021-03-02] MEDS: oxyCODONE HCl Immed Release 5 MG TABLET PO (18:13)
[2021-03-02 20:41] LABS: Glucose, Whole Blood 80 mg/dL (60-115)
[2021-03-02] MEDS: Pravastatin Sodium 40 MG TABLET PO (20:50)
--- NOTE | 2021-03-02 22:23 | W.PM.IDCN ---
History of Present Illness Data of Consult Service Date: 03/02/21 Requesting physician: Jose Brown Primary Care Provider: MD CHRIS Quiros Reason for consult: vulvar malignancy She presents with pain and discomfort vulvar wounds She is stage 3 vulvar cancer. 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 Vulvar cancer Family History Family History Mother CAD (coronary artery disease) Surgical History Surgical History History of appendectomy History of carpal tunnel release History of cholecystectomy History of hysterectomy for cancer History of knee replacement History of salpingo-oophorectomy History of vulvectomy Social History Social History Household Members: Spouse Housing: Apartment Do you presently have visiting nurse or other home services: No Patient Tobacco Use Status: Never used Tobacco service: No Meds Allergies Allergy/AdvReac Type Severity Reaction Status Date / Time No Known Allergies Allergy Verified 03/01/21 11:33 Active Medications: Current Medications Acetaminophen (Acetaminophen 325 Mg Tablet) 650 mg PO Q6H PRN PRN Reason: Pain, Mild (Pain Scale 1-3) Albuterol Sulfate (Albuterol Sulfate 90 Mcg 8 Gm Inhaler) 2 puff INHALE Q6H PRN PRN Reason: Shortness Of Breath Or Wheezing Amiodarone HCl (Amiodarone Hcl 200 Mg Tablet) 400 mg PO BID [facility] Last Admin: 03/02/21 20:50 Dose: 400 mg Documented by: Apixaban (Apixaban 5 Mg Tablet) 5 mg PO BID [facility] Last Admin: 03/02/21 20:50 Dose: 5 mg Documented by: Cyanocobalamin (Cyanocobalamin (Vitamin B-12) 1,000 Mcg Tablet) 1,000 mcg PO DAILY [facility] Last Admin: 03/02/21 09:08 Dose: 1,000 mcg Documented by: Dextrose (Dextrose 50 % 25 Gm/50 Ml Vial) 25 gm IVPUSH Q15M PRN; Protocol PRN Reason: per Hypoglycemia Standing Ord. Duloxetine HCl (Duloxetine Hcl 60 Mg Capsule.) 60 mg PO DAILY [facility] Last Admin: 03/02/21 09:08 Dose: 60 mg Documented by: Ferrous Sulfate (Ferrous Sulfate 324 Mg Tablet.) 324 mg PO DAILY [facility] Last Admin: 03/02/21 09:08 Dose: 324 mg Documented by: Glucose (Glucose Gel 15 Gm Gel..Gram.) 15 gm PO Q15M PRN; Protocol PRN Reason: per Hypoglycemia Standing Ord. Hydromorphone HCl (Hydromorphone Hcl 0.5 Mg/0.5 Ml Syringe) 0.5 mg IVPUSH Q4H PRN; Protocol PRN Reason: severe pain Piperacillin Sod/Tazobactam (Sod 3.375 gm/ Sodium Chloride) 50 mls @ 100 mls/hr IV Q6H [facility] Last Infusion: 03/02/21 20:47 Dose: Infused Documented by: Vancomycin HCl 1,500 mg/ (Sodium Chloride) 500 mls @ 333.333 mls/hr IV Q24H [facility] Last Infusion: 03/02/21 16:11 Dose: Infused Documented by: Insulin Glargine (Insulin Glargine,Hum.Rec.Anlog 100 Unit/Ml 10 Ml Vial) 16 unit SUBCUT BEDTIME [facility] Last Admin: 03/02/21 20:51 Dose: Not Given Documented by: Insulin Human Lispro (Insulin Lispro 100 Unit/Ml 3 Ml Vial) 0 unit SUBCUT QIDACHS [facility]; Protocol Last Admin: 03/02/21 20:51 Dose: Not Given Documented by: Loperamide HCl (Loperamide Hcl 2 Mg Capsule) 4 mg PO Q4H PRN PRN Reason: diarrhea Lorazepam (Lorazepam 0.5 Mg Tablet) 0.5 mg PO BID [facility] Last Admin: 03/02/21 20:50 Dose: 0.5 mg Documented by: Metoprolol Tartrate (Metoprolol Tartrate 12.5 Mg Halftab) 12.5 mg PO BID [facility]; Protocol Last Admin: 03/02/21 20:52 Dose: Not Given Documented by: Omeprazole (Omeprazole 20 Mg Capsule.) 20 mg PO DAILY@0630 [facility] Last Admin: 03/02/21 05:54 Dose: 20 mg Documented by: Ondansetron HCl (Ondansetron Hcl 4 Mg/2 Ml Vial) 4 mg IVPUSH Q8H PRN PRN Reason: Nausea and Vomiting Oxycodone HCl (Oxycodone Hcl Immed Release 5 Mg Tablet) 5 mg PO Q12H PRN PRN Reason: Pain (Scale Score 4-6) Last Admin: 03/02/21 18:13 Dose: 5 mg Documented by: Oxycodone HCl (Oxycodone Hcl Er 10 Mg Tab.Er.12h) 10 mg PO BID [facility] Last Admin: 03/02/21 20:50 Dose: 10 mg Documented by: Pharmacy Consult (Consult Rx Perform Med Rec) 1 each MISCELLANE ONCE PRN PRN Reason: Consult order Pravastatin Sodium (Pravastatin Sodium 40 Mg Tablet) 40 mg PO BEDTIME [facility] Last Admin: 03/02/21 20:50 Dose: 40 mg Documented by: Sodium Chloride (0.9 % Sodium Chloride Flush 3 Ml Syringe) 3 ml IVFLUSH QSHIFT [facility] Last Admin: 03/02/21 20:51 Dose: 3 ml Documented by: Vitamin D (Cholecalciferol (Vitamin D3) 25 Mcg Tablet) 50 mcg PO DAILY [facility] Last Admin: 03/02/21 09:08 Dose: 50 mcg Documented by: Home Medications Medication Instructions Recorded Confirmed Last Taken Type Magic Mouthwash 10 ml PO TIDAC 03/01/21 03/01/21 Unknown History albuterol sulfate 90 mcg/actuation 2 puff INHALATION Q6H PRN 03/01/21 03/01/21 Unknown History aerosol inhaler (ProAir HFA) apixaban 5 mg tablet 5 mg PO BID 03/01/21 03/01/21 03/01/21 History cholecalciferol (vitamin D3) 50 50 mcg PO DAILY 03/01/21 03/01/21 03/01/21 History mcg (2,000 unit) capsule (Vitamin D3) cyanocobalamin (vitamin B-12) 1,000 mcg PO DAILY 03/01/21 03/01/21 03/01/21 History 1,000 mcg tablet docusate sodium 100 mg capsule 100 mg PO BID 03/01/21 03/01/21 03/01/21 History duloxetine 60 mg capsule,delayed 60 mg PO DAILY 03/01/21 03/01/21 03/01/21 History release ferrous sulfate 324 mg (65 mg 324 mg PO DAILY 03/01/21 03/01/21 03/01/21 History iron) tablet,delayed release insulin glargine 100 unit/mL 16 unit SUBCUT BEDTIME 03/01/21 03/01/21 02/28/21 History subcutaneous solution (Lantus U-100 Insulin) insulin lispro 100 unit/mL 1 sliding scale dose SUBCUT QIDACHS 03/01/21 03/01/21 Unknown History subcutaneous solution (Humalog U-100 Insulin) loperamide 2 mg tablet 2 mg PO Q8H PRN 03/01/21 03/01/21 Unknown History lorazepam 0.5 mg tablet 0.5 mg PO BID 03/01/21 03/01/21 03/01/21 History lovastatin 40 mg tablet 40 mg PO BEDTIME 03/01/21 03/01/21 02/28/21 History metoprolol tartrate 25 mg tablet 12.5 mg PO BID 03/01/21 03/01/21 03/01/21 History omeprazole 20 mg capsule,delayed 20 mg PO DAILY@0630 03/01/21 03/01/21 03/01/21 History release oxycodone 10 mg tablet,crush 10 mg PO BID 03/01/21 03/01/21 03/01/21 History resistant,extended release 12 hr (OxyContin) oxycodone 5 mg tablet 5 mg PO Q12H PRN 03/01/21 03/01/21 Unknown History polyethylene glycol 3350 17 17 g PO DAILY 03/01/21 03/01/21 Unknown History gram/dose oral powder (Miralax) prochlorperazine maleate 10 mg 10 mg PO Q6H PRN 03/01/21 03/01/21 Unknown History tablet Physical Exam Vital Signs: Vital Signs: Last Vital Signs Temp 97.6 F 03/02/21 19:41 Pulse 70 03/02/21 20:50 Resp 16 03/02/21 19:41 BP 100/60 03/02/21 20:50 Pulse Ox 98 03/02/21 19:41 BMI result Body Mass Index 28.9 Const: General: cooperative HENMT: Head: Yes normal to inspection Mouth: Normal oral and palatal mucosa present Resp: Effort & Inspection: normal respiratory effort GI: Palpation (GI): nontender : Other: deep vulvar wounds Results Labs CBC & Chem 7: 03/02/21 07:23 03/02/21 07:23 Labs: Short CBC 03/02/21 Range/Units 07:23 WBC 4.2 L (4.8-10.8) X10*3/uL Hgb 9.3 L D (12.0-16.0) g/dl Hct 29.0 L D (37.0-47.0) % Plt Count 371 (160-400) X10*3/uL BMP 03/02/21 07:23 Sodium 138 Potassium 3.8 Chloride 109 H Carbon Dioxide 22 BUN 7 L Creatinine 0.59 Calcium 7.4 L D Microbiology Microbiology Results: Microbiology 03/01/21 12:48 Blood - Venous Blood Culture - Preliminary No growth after 24 hours. 03/01/21 12:38 Blood - Venous Blood Culture - Preliminary No growth after 24 hours. Assessment and Plan (1) Wound cellulitis: Status: Acute Organism unknown Continue Vancomycin and Zosyn likely 3-5days (2) COVID-19: Status: Acute Unknown duration Dexamethasone if hypoxic tomorro
[2021-03-03] VITALS (9 sets, daily range): BP systolic 95–128; BP diastolic 46–63; PULSE 71–120; RESP 16–22; TEMP 36.5–36.6; O2SAT 94–99
[2021-03-03] MEDS: HYDROmorphone HCl 0.5 MG/0.5 ML SYRINGE IVPUSH (03:32)
[2021-03-03 03:43] LABS: Glucose, Whole Blood 95 mg/dL (60-115)
[2021-03-03] MEDS: Piperacillin Sodium/Tazobactam 3.375 GM in 0.9 % Sodium Chloride 50 ML IV ×3 (05:30→18:21)
[2021-03-03] MEDS: Omeprazole 20 MG CAPSULE.DR PO (05:30)
[2021-03-03 06:44] LABS: Estimated Glomerular Filt Rate > 60
--- NOTE | 2021-03-03 08:00 | ECG_ITS ---
Test Reason : QTC CHECK Blood Pressure : / mmHG Vent. Rate : 077 BPM Atrial Rate : 077 BPM P-R Int : 146 ms QRS Dur : 086 ms QT Int : 296 ms P-R-T Axes : 040 048 238 degrees QTc Int : 334 ms Normal sinus rhythm Low voltage QRS Nonspecific ST and T wave abnormality Abnormal ECG When compared with ECG of 01-MAR-2021 11:19, Sinus rhythm has replaced Atrial fibrillation Vent. rate has decreased BY 80 BPM Referred By: Jose Brown Electronically Signed By:MAKENZIE BRADSHAW
[2021-03-03 09:29] LABS: Glucose, Whole Blood 88 mg/dL (60-115)
--- NOTE | 2021-03-03 09:40 | P.CDIC_ITS ---
CDI Concurrent Query Documentation Clarification: PHYSICIAN'S DOCUMENTATION REQUEST Date of Query: 03/03/21 0940 Patient Name: Rita Li Admit Date: 03/01/21 Dear Doctor, A review of the medical record indicates additional documentation may be needed. Please review below and update the documentation accordingly. 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 LA 3.8 HR 142 Albumin 2.3 BP 91/60, getting sepsis bolus of IVT 1.3 L of total sepsis bolus. Cardiology consult 03/02: Chief complaint - Severe sepsis/wound infection. skin changes secondary to radiation treatment. ID: Wound/cellulitis continue Vancomycin and Zosyn likely 3-5 days. Sepsis Systemic manifestations of infection, with 2 or more SIRS criteria which include: * Fever > 100.4?F or hypothermia < 96.8?F * Leukocytosis ? WBC > 12,000 or leukopenia, WBC < 4,000, or > 10% bands * Tachycardia- > 90 beats/minute * Tachypnea- RR > 20 breaths/minute or PaCO2 < 32mmHg Source: [employer]ck Manual 2013 Documentation should include the known or suspected organism, and the underlying infection, such as UTI or pneumonia Severe Sepsis Sepsis with associated acute organ dysfunction, such as renal or respiratory failure Documentation should indicate the association between the sepsis and the organ dysfunction Based on the above information and the recognized standard for sepsis, could you please clarify in the Progress Notes if this diagnoses is still accurate and reflective of the patient's condition to ensure quality of the medical record. * Sepsis is/was present and is a clinical diagnosis based on (please include this additional support in the medical record) * After study (the condition) has been ruled out * Other (please specify) * Unable to determine Use of terms such as suspected, likely, concern for, or probable (associated with a specific diagnosis that is being evaluated, monitored, or treated as if it exists) are acceptable and can be coded in the inpatient setting, when documented at the time of discharge. Thank you, Melinda Pope [facility], [facility]IS Extension: [phone] Please use your independent medical judgment in providing your response. THIS QUERY IS PART OF THE PERMANENT MEDICAL RECORD Provider Response: Other Other Diagnosis: No sepsis on admission
[2021-03-03] MEDS: Cholecalciferol (Vitamin D3) 25 MCG TABLET 50 MCG PO (10:17)
[2021-03-03] MEDS: LORazepam 0.5 MG TABLET PO ×2 (10:17→21:31)
[2021-03-03] MEDS: Metoprolol Tartrate 12.5 MG HALFTAB PO ×2 (10:17→21:31)
[2021-03-03] MEDS: Cyanocobalamin (Vitamin B-12) 1,000 MCG TABLET 1000 MCG PO (10:18)
[2021-03-03] MEDS: Amiodarone HCL 200 MG TABLET 400 MG PO ×2 (10:18→21:33)
[2021-03-03] MEDS: Apixaban 5 MG TABLET PO ×2 (10:18→21:32)
[2021-03-03] MEDS: Ferrous Sulfate 324 MG TABLET.DR PO (10:18)
[2021-03-03] MEDS: 0.9 % Sodium Chloride Flush 3 ML SYRINGE IVFLUSH ×3 (10:19→21:44)
[2021-03-03] MEDS: oxyCODONE HCl ER 10 MG TAB.ER.12H PO ×2 (10:19→21:31)
[2021-03-03] MEDS: DULoxetine HCl 60 MG CAPSULE.DR PO (10:19)
[2021-03-03 11:56] LABS: Glucose, Whole Blood 148 mg/dL (60-115)
--- NOTE | 2021-03-03 12:31 | HO.WOUNDCONS ---
History of Present Illness Data of Consult Service Date: 03/03/21 Requesting physician: Tawnya Domingo Primary Care Provider: Sabino Harp MD [facility] Reason for consult: vulvar malignancy 75-year-old female who resides at a subacute rehabilitation facility who is in the hospital for sepsis. We were asked to see the patient for vulvar wounds related to stage III squamous cell carcinoma. She was evaluated by Infectious Disease. She has a history of radiation exposure for which soft tissue radionecrosis is possibility. I was not able to see the patient in person due to COVID. We were not notified that she is COVID positive. I reviewed her photographs from her admission to examine the vulvar and posterior tissues. Her vital signs are reported as stable. I spoke to a nurse on the floor. 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 Vulvar cancer Family History Mother CAD (coronary artery disease) Surgical History History of appendectomy History of carpal tunnel release History of cholecystectomy History of hysterectomy for cancer History of knee replacement History of salpingo-oophorectomy History of vulvectomy Social History Household Members: Spouse Housing: Apartment Do you presently have visiting nurse or other home services: No Patient Tobacco Use Status: Never used Tobacco service: No Meds Allergies Allergy/AdvReac Type Severity Reaction Status Date / Time No Known Allergies Allergy Verified 03/01/21 11:33 Active Medications: Current Medications Acetaminophen (Acetaminophen 325 Mg Tablet) 650 mg PO Q6H PRN PRN Reason: Pain, Mild (Pain Scale 1-3) Albuterol Sulfate (Albuterol Sulfate 90 Mcg 8 Gm Inhaler) 2 puff INHALE Q6H PRN PRN Reason: Shortness Of Breath Or Wheezing Amiodarone HCl (Amiodarone Hcl 200 Mg Tablet) 400 mg PO BID [facility] Last Admin: 03/03/21 10:18 Dose: 400 mg Documented by: Apixaban (Apixaban 5 Mg Tablet) 5 mg PO BID [facility] Last Admin: 03/03/21 10:18 Dose: 5 mg Documented by: Cyanocobalamin (Cyanocobalamin (Vitamin B-12) 1,000 Mcg Tablet) 1,000 mcg PO DAILY [facility] Last Admin: 03/03/21 10:18 Dose: 1,000 mcg Documented by: Dextrose (Dextrose 50 % 25 Gm/50 Ml Vial) 25 gm IVPUSH Q15M PRN; Protocol PRN Reason: per Hypoglycemia Standing Ord. Duloxetine HCl (Duloxetine Hcl 60 Mg Capsule.) 60 mg PO DAILY [facility] Last Admin: 03/03/21 10:19 Dose: 60 mg Documented by: Ferrous Sulfate (Ferrous Sulfate 324 Mg Tablet.) 324 mg PO DAILY [facility] Last Admin: 03/03/21 10:18 Dose: 324 mg Documented by: Glucose (Glucose Gel 15 Gm Gel..Gram.) 15 gm PO Q15M PRN; Protocol PRN Reason: per Hypoglycemia Standing Ord. Hydromorphone HCl (Hydromorphone Hcl 0.5 Mg/0.5 Ml Syringe) 0.5 mg IVPUSH Q4H PRN; Protocol PRN Reason: severe pain Last Admin: 03/03/21 03:32 Dose: 0.5 mg Documented by: Piperacillin Sod/Tazobactam (Sod 3.375 gm/ Sodium Chloride) 50 mls @ 100 mls/hr IV Q6H [facility] Last Admin: 03/03/21 11:52 Dose: 100 mls/hr Documented by: Vancomycin HCl 1,500 mg/ (Sodium Chloride) 500 mls @ 333.333 mls/hr IV Q24H [facility] Last Infusion: 03/02/21 16:11 Dose: Infused Documented by: Insulin Glargine (Insulin Glargine,Hum.Rec.Anlog 100 Unit/Ml 10 Ml Vial) 16 unit SUBCUT BEDTIME [facility] Last Admin: 03/02/21 20:51 Dose: Not Given Documented by: Insulin Human Lispro (Insulin Lispro 100 Unit/Ml 3 Ml Vial) 0 unit SUBCUT QIDACHS [facility]; Protocol Last Admin: 03/03/21 12:00 Dose: Not Given Documented by: Loperamide HCl (Loperamide Hcl 2 Mg Capsule) 4 mg PO Q4H PRN PRN Reason: diarrhea Lorazepam (Lorazepam 0.5 Mg Tablet) 0.5 mg PO BID [facility] Last Admin: 03/03/21 10:17 Dose: 0.5 mg Documented by: Metoprolol Tartrate (Metoprolol Tartrate 12.5 Mg Halftab) 12.5 mg PO BID [facility]; Protocol Last Admin: 03/03/21 10:17 Dose: 12.5 mg Documented by: Omeprazole (Omeprazole 20 Mg Capsule.Dr) 20 mg PO DAILY@0630 [facility] Last Admin: 03/03/21 05:30 Dose: 20 mg Documented by: Ondansetron HCl (Ondansetron Hcl 4 Mg/2 Ml Vial) 4 mg IVPUSH Q8H PRN PRN Reason: Nausea and Vomiting Oxycodone HCl (Oxycodone Hcl Immed Release 5 Mg Tablet) 5 mg PO Q12H PRN PRN Reason: Pain (Scale Score 4-6) Last Admin: 03/02/21 18:13 Dose: 5 mg Documented by: Oxycodone HCl (Oxycodone Hcl Er 10 Mg Tab.Er.12h) 10 mg PO BID [facility] Last Admin: 03/03/21 10:19 Dose: 10 mg Documented by: Pharmacy Consult (Consult Rx Perform Med Rec) 1 each MISCELLANE ONCE PRN PRN Reason: Consult order Pravastatin Sodium (Pravastatin Sodium 40 Mg Tablet) 40 mg PO BEDTIME [facility] Last Admin: 03/02/21 20:50 Dose: 40 mg Documented by: Sodium Chloride (0.9 % Sodium Chloride Flush 3 Ml Syringe) 3 ml IVFLUSH QSHIFT [facility] Last Admin: 03/03/21 10:19 Dose: 3 ml Documented by: Vitamin D (Cholecalciferol (Vitamin D3) 25 Mcg Tablet) 50 mcg PO DAILY [facility] Last Admin: 03/03/21 10:17 Dose: 50 mcg Documented by: Home Medications Medication Instructions Recorded Confirmed Last Taken Type Magic Mouthwash 10 ml PO TIDAC 03/01/21 03/01/21 Unknown History albuterol sulfate 90 mcg/actuation 2 puff INHALATION Q6H PRN 03/01/21 03/01/21 Unknown History aerosol inhaler (ProAir HFA) apixaban 5 mg tablet 5 mg PO BID 03/01/21 03/01/2103/01/21 History cholecalciferol (vitamin D3) 50 50 mcg PO DAILY 03/01/21 03/01/21 03/01/21 History mcg (2,000 unit) capsule (Vitamin D3) cyanocobalamin (vitamin B-12) 1,000 mcg PO DAILY 03/01/21 03/01/21 03/01/21 History 1,000 mcg tablet docusate sodium 100 mg capsule 100 mg PO BID 03/01/21 03/01/21 03/01/21 History duloxetine 60 mg capsule,delayed 60 mg PO DAILY 03/01/21 03/01/21 03/01/21 History release ferrous sulfate 324 mg (65 mg 324 mg PO DAILY 03/01/21 03/01/21 03/01/21 History iron) tablet,delayed release insulin glargine 100 unit/mL 16 unit SUBCUT BEDTIME 03/01/21 03/01/21 02/28/21 History subcutaneous solution (Lantus U-100 Insulin) insulin lispro 100 unit/mL 1 sliding scale dose SUBCUT QIDACHS 03/01/21 03/01/21 Unknown History subcutaneous solution (Humalog U-100 Insulin) loperamide 2 mg tablet 2 mg PO Q8H PRN 03/01/21 03/01/21 Unknown History lorazepam 0.5 mg tablet 0.5 mg PO BID 03/01/21 03/01/21 03/01/21 History lovastatin 40 mg tablet 40 mg PO BEDTIME 03/01/21 03/01/21 02/28/21 History metoprolol tartrate 25 mg tablet 12.5 mg PO BID 03/01/21 03/01/21 03/01/21 History omeprazole 20 mg capsule,delayed 20 mg PO DAILY@0630 03/01/21 03/01/21 03/01/21 History release oxycodone 10 mg tablet,crush 10 mg PO BID 03/01/21 03/01/21 03/01/21 History resistant,extended release 12 hr (OxyContin) oxycodone 5 mg tablet 5 mg PO Q12H PRN 03/01/21 03/01/21 Unknown History polyethylene glycol 3350 17 17 g PO DAILY 03/01/21 03/01/21 Unknown History gram/dose oral powder (Miralax) prochlorperazine maleate 10 mg 10 mg PO Q6H PRN 03/01/21 03/01/21 Unknown History tablet Physical Exam Vital Signs and Narrative: Vital Signs: Last Vital Signs Temp 97.8 F 03/03/21 12:00 Pulse 120 H 03/03/21 12:00 Resp 18 03/03/21 12:00 BP 128/59 L 03/03/21 12:00 Pulse Ox 99 03/03/21 12:00 BMI result Body Mass Index 28.9 photographs show nonviable tissue of the vulva, yellowish and possibly macerated. There is necrosis seemingly associated with this. The posterior view shows a deep ulceration, also looking necrotic and black and with full-thickness involvement of the buttocks. 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 Off-label use of metronidazole powder has been used in palliative situations to control odor. Presently with rapid AFib she is unlikely to be surgical candidate though dissection and removal of tissue might be indicated versus plastics consultation if available. We could not even consider hyperbaric oxygen for soft tissue radionecrosis in this situation because the patient is at a facility being cared for for these extensive wounds.
[2021-03-03] MEDS: vancomycin HCL 1,500 MG in 0.9 % Sodium Chloride 500 ML 333.33 MG IV (13:04)
--- NOTE | 2021-03-03 15:15 | HO.PM.IMPN ---
Subjective Subjective Date of Service: 03/03/21 Interval History: Offers no acute complaints this morning, no overnight fevers chills. Review of Systems Review of Systems: Yes all other systems are reviewed and are negative Physical Exam Vital Signs: Vital Signs: Last Vital Signs Temp 97.8 F 03/03/21 12:00 Pulse 120 H 03/03/21 12:00 Resp 18 03/03/21 12:00 BP 128/59 L 03/03/21 12:00 Pulse Ox 99 03/03/21 12:00 BMI result Body Mass Index 28.9 Gen:? Awake alert x3 no acute distre ss appears chronic ally ill Neck: sup ple, no JVD Chest: R subclavian port Lungs: clear to a uscultation bilate rally Heart:? Regu lar rate rhythm, n o murmurs Abd: sof t, non-tender, non -distended, bowel sounds audible Ext : no edema Skin: w arm/well-perfused, pale, sacral woun d/vulvar wounds pl ease refer to pict ures in H&P notes Neuro: alert and o riented x3, no foc al findings Psych: appropriate affec t Objective Data Active Medications Acetaminophen (Acetaminophen 325 Mg Tablet) 650 mg PO Q6H PRN PRN Reason: Pain, Mild (Pain Scale 1-3) Albuterol Sulfate (Albuterol Sulfate 90 Mcg 8 Gm Inhaler) 2 puff INHALE Q6H PRN PRN Reason: Shortness Of Breath Or Wheezing Amiodarone HCl (Amiodarone Hcl 200 Mg Tablet) 400 mg PO BID [facility] Last Admin: 03/03/21 10:18 Dose: 400 mg Documented by: ADELAIDA Apixaban (Apixaban 5 Mg Tablet) 5 mg PO BID [facility] Last Admin: 03/03/21 10:18 Dose: 5 mg Documented by: ADELAIDA Cyanocobalamin (Cyanocobalamin (Vitamin B-12) 1,000 Mcg Tablet) 1,000 mcg PO DAILY [facility] Last Admin: 03/03/21 10:18 Dose: 1,000 mcg Documented by: ADELAIDA Dextrose (Dextrose 50 % 25 Gm/50 Ml Vial) 25 gm IVPUSH Q15M PRN; Protocol PRN Reason: per Hypoglycemia Standing Ord. Duloxetine HCl (Duloxetine Hcl 60 Mg Capsule.Dr) 60 mg PO DAILY [facility] Last Admin: 03/03/21 10:19 Dose: 60 mg Documented by: ADELAIDA Ferrous Sulfate (Ferrous Sulfate 324 Mg Tablet.) 324 mg PO DAILY [facility] Last Admin: 03/03/21 10:18 Dose: 324 mg Documented by: ADELAIDA Glucose (Glucose Gel 15 Gm Gel..Gram.) 15 gm PO Q15M PRN; Protocol PRN Reason: per Hypoglycemia Standing Ord. Hydromorphone HCl (Hydromorphone Hcl 0.5 Mg/0.5 Ml Syringe) 0.5 mg IVPUSH Q4H PRN; Protocol PRN Reason: severe pain Last Admin: 03/03/21 03:32 Dose: 0.5 mg Documented by: JT Piperacillin Sod/Tazobactam (Sod 3.375 gm/ Sodium Chloride) 50 mls @ 100 mls/hr IV Q6H [facility] Last Infusion: 03/03/21 12:35 Dose: 0 mls/hr Documented by: ADELAIDA Vancomycin HCl 1,500 mg/ (Sodium Chloride) 500 mls @ 333.333 mls/hr IV Q24H [facility] Last Admin: 03/03/21 13:04 Dose: 333.33 mls/hr Documented by: ADELAIDA Insulin Glargine (Insulin Glargine,Hum.Rec.Anlog 100 Unit/Ml 10 Ml Vial) 16 unit SUBCUT BEDTIME [facility] Last Admin: 03/02/21 20:51 Dose: Not Given Documented by: JT Non-Admin Reason: No Insulin Coverage Insulin Human Lispro (Insulin Lispro 100 Unit/Ml 3 Ml Vial) 0 unit SUBCUT QIDACHS [facility]; Protocol Last Admin: 03/03/21 12:00 Dose: Not Given Documented by: ADELAIDA Non-Admin Reason: No Insulin Coverage Loperamide HCl (Loperamide Hcl 2 Mg Capsule) 4 mg PO Q4H PRN PRN Reason: diarrhea Lorazepam (Lorazepam 0.5 Mg Tablet) 0.5 mg PO BID [facility] Last Admin: 03/03/21 10:17 Dose: 0.5 mg Documented by: ADELAIDA Metoprolol Tartrate (Metoprolol Tartrate 12.5 Mg Halftab) 12.5 mg PO BID [facility]; Protocol Last Admin: 03/03/21 10:17 Dose: 12.5 mg Documented by: ADELAIDA Omeprazole (Omeprazole 20 Mg Capsule.Dr) 20 mg PO DAILY@0630 [facility] Last Admin: 03/03/21 05:30 Dose: 20 mg Documented by: JT Ondansetron HCl (Ondansetron Hcl 4 Mg/2 Ml Vial) 4 mg IVPUSH Q8H PRN PRN Reason: Nausea and Vomiting Oxycodone HCl (Oxycodone Hcl Immed Release 5 Mg Tablet) 5 mg PO Q12H PRN PRN Reason: Pain (Scale Score 4-6) Last Admin: 03/02/21 18:13 Dose: 5 mg Documented by: ADELAIDA Oxycodone HCl (Oxycodone Hcl Er 10 Mg Tab.Er.12h) 10 mg PO BID [facility] Last Admin: 03/03/21 10:19 Dose: 10 mg Documented by: ADELAIDA Pharmacy Consult (Consult Rx Perform Med Rec) 1 each MISCELLANE ONCE PRN PRN Reason: Consult order Pravastatin Sodium (Pravastatin Sodium 40 Mg Tablet) 40 mg PO BEDTIME [facility] Last Admin: 03/02/21 20:50 Dose: 40 mg Documented by: JT Sodium Chloride (0.9 % Sodium Chloride Flush 3 Ml Syringe) 3 ml IVFLUSH QSHIFT [facility] Last Admin: 03/03/21 10:19 Dose: 3 ml Documented by: ADELAIDA Vitamin D (Cholecalciferol (Vitamin D3) 25 Mcg Tablet) 50 mcg PO DAILY [facility] Last Admin: 03/03/21 10:17 Dose: 50 mcg Documented by: ADELAIDA Labs CBC & Chem 7: 03/02/21 07:23 03/03/21 06:02 Labs: Laboratory Results - last 24 hr 03/02/21 03/02/21 03/03/21 16:44 20:37 03:39 Estim Creat Clear Calc Estimated GFR POC Glucose 78 80 95 03/03/21 03/03/21 03/03/21 06:02 08:56 11:44 Estim Creat Clear Calc 57.0 Estimated GFR > 60 POC Glucose 88 148 H Microbiology Microbiology Results: Microbiology 03/01/21 12:48 Blood Culture - Preliminary Blood - Venous No growth after 48 hours. 03/01/21 12:38 Blood Culture - Preliminary Blood - Venous No growth after 48 hours. 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 on 02/16/21, presenting with worsening pain and fecal contamination of chronic sacral/gluteal and? inguinal wounds, rapid ventricular response, and lactic acidosis.? She also has breakthrough Covid-19 infection, though is asymptomatic and not hypoxic. # AF/RVR -patient remains in normal sinus rhythm, s/p IV amiodarone drip and IV digoxin ?Continue amiodarone 400 mg po b.i.d. ?EKG showed normal sinus rhythm QTC 334 continue apixaban ?Since had a recent normal echocardiogram at [facility] will hold off on repeat echo? continue tele monitor, case discussed with Cardiology # sacral and vulvar wound infection/cellulitis no worsening pain no drainage noted, no fevers ?? No evidence of sepsis tachycardia on admission due to atrial fibrillation, low blood pressure after receiving IV Cardizem, no fevers, ?? history of recurrent vulvar carcinoma, stage III, with recent radiation treatment, skin changes secondary to radiation treatment, on the area of the perineum and buttocks. ?? vancomycin and piperacillin/tazobactam day 3/5 then transition to by mouth antibiotic ?? Seen by General surgery they recommend wound care evaluation, frequent position change good nutrition,and to keep the wound clean ?? Seen by Dr. 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 stable oxygenation 95% on room, monitor for hypoxia and respiratory decompensation.? # diarrhea, post-chemotherapy - r/o C. diff by PCR and if negative, give loperamide prn # anemia noted to have drop in hematocrit no active blood loss noted low MCV check iron studies, stool guaiac follow CBC # hypo magnesemia will replace and follow # DM2 - stable blood sugars, continue diabetic diet, basal/bolus insulin.? last A1c 7.2 on 12/24/20 # HLD - continue statin # mood disorder - continue duloxetine, lorazepam # chronic pain - continue long-acting oxycodone and prn short-acting oxycodone; and IV hydromorphone for breakthrough pain # VTE ppx - apixaban # code - full Quality Stroke Does the patient have a stroke diagnosis?: No VTE Prior VTE?: No VTE Risk Level:: Medical - moderate - high VTE Device Contraindication: N/A - Device Ordered VTE Drug Contraindication: N/A - Med Ordered
[2021-03-03 15:59] LABS: Glucose, Whole Blood 179 mg/dL (60-115)
[2021-03-03] MEDS: Insulin Lispro 100 UNIT/ML 3 ML VIAL SUBCUT (16:06)
[2021-03-03] MEDS: Magnesium Sulfate/H2O 2 GM/50 ML PIGGYBACK IV (16:06)
[2021-03-03 19:48] LABS: CDiff Gene PCR NEGATIVE (Negative)
[2021-03-03 20:54] LABS: Glucose, Whole Blood 102 mg/dL (60-115)
[2021-03-03] MEDS: Pravastatin Sodium 40 MG TABLET PO (21:32)
[2021-03-04] VITALS (9 sets, daily range): BP systolic 95–134; BP diastolic 41–69; PULSE 71–87; RESP 14–20; TEMP 35.4–36.6; O2SAT 93–100
[2021-03-04] MEDS: Piperacillin Sodium/Tazobactam 3.375 GM in 0.9 % Sodium Chloride 50 ML IV ×4 (00:13→21:04)
[2021-03-04] MEDS: HYDROmorphone HCl 0.5 MG/0.5 ML SYRINGE IVPUSH ×2 (02:50→20:49)
[2021-03-04] MEDS: Omeprazole 20 MG CAPSULE.DR PO (06:10)
[2021-03-04] MEDS: oxyCODONE HCl Immed Release 5 MG TABLET PO (06:10)
[2021-03-04 06:42] LABS: Hematocrit 31.2 % (37.0-47.0); Hemoglobin 9.6 g/dl (12.0-16.0); Mean Corpuscular HGB Conc 30.8 g/dl (31.0-35.0); Mean Corpuscular Hemoglobin 24.9 pg (27.0-33.0); Mean Corpuscular Volume 80.8 fL (80.0-98.0); Mean Platelet Volume 10.7 fL (9.4-12.3); Platelet Count 350 X10*3/uL (160-400); Red Blood Count 3.86 X10*6/uL (4.20-5.50); Red Cell Distribution Width 16.6 % (11.0-16.0); White Blood Count 7.9 X10*3/uL (4.8-10.8)
[2021-03-04 06:54] LABS: Creatinine Clr Calc Pharmacy 32.8; Estimated Glomerular Filt Rate 39; Iron 18 mcg/dL (30-160); Magnesium 2.1 mg/dL (1.6-2.6); Percent Iron Saturation 14 % (15-50); Total Iron Binding Capacity 130 mcg/dL (228-428); Unsaturated Iron Binding 112 ug/dL
[2021-03-04 07:53] LABS: Glucose, Whole Blood 123 mg/dL (60-115)
[2021-03-04] MEDS: Cholecalciferol (Vitamin D3) 25 MCG TABLET 50 MCG PO (08:14)
[2021-03-04] MEDS: Ferrous Sulfate 324 MG TABLET.DR PO (08:14)
[2021-03-04] MEDS: Amiodarone HCL 200 MG TABLET 400 MG PO ×2 (08:14→21:06)
[2021-03-04] MEDS: DULoxetine HCl 60 MG CAPSULE.DR PO (08:14)
[2021-03-04] MEDS: Cyanocobalamin (Vitamin B-12) 1,000 MCG TABLET 1000 MCG PO (08:14)
[2021-03-04] MEDS: Apixaban 5 MG TABLET PO ×2 (08:15→21:04)
[2021-03-04] MEDS: 0.9 % Sodium Chloride Flush 3 ML SYRINGE IVFLUSH ×3 (08:15→21:07)
[2021-03-04] MEDS: LORazepam 0.5 MG TABLET PO ×2 (08:15→21:04)
--- NOTE | 2021-03-04 10:12 | PM.PNGS ---
Subjective Subjective Date of Service: 03/05/21 Interval history: Has pain on perineum buttocks Hygiene has been difficult as patient is incontinent of both stool and urine Physical Exam Vital Signs: Vital Signs: Last Vital Signs Temp 95.7 F L 03/04/21 07:40 Pulse 74 03/04/21 07:40 Resp 14 03/04/21 07:40 BP 98/50 L 03/04/21 07:40 Pulse Ox 94 03/04/21 07:40 BMI result Body Mass Index 28.9 Const: Other: Frail looking, complains of pain General: no acute distress Resp: Effort & Inspection: normal respiratory effort Cardio: Rhythm: abnormal rhythm GI: Other: Soft, skin breakdown around perineum and inguinal crease, as well as the gluteal cleft secondary to radiation Objective Data Active Medications Acetaminophen (Acetaminophen 325 Mg Tablet) 650 mg PO Q6H PRN PRN Reason: Pain, Mild (Pain Scale 1-3) Albuterol Sulfate (Albuterol Sulfate 90 Mcg 8 Gm Inhaler) 2 puff INHALE Q6H PRN PRN Reason: Shortness Of Breath Or Wheezing Amiodarone HCl (Amiodarone Hcl 200 Mg Tablet) 400 mg PO BID [facility] Last Admin: 03/04/21 08:14 Dose: 400 mg Documented by: KELY Apixaban (Apixaban 5 Mg Tablet) 5 mg PO BID [facility] Last Admin: 03/04/21 08:15 Dose: 5 mg Documented by: KELY Cyanocobalamin (Cyanocobalamin (Vitamin B-12) 1,000 Mcg Tablet) 1,000 mcg PO DAILY [facility] Last Admin: 03/04/21 08:14 Dose: 1,000 mcg Documented by: KELY Dextrose (Dextrose 50 % 25 Gm/50 Ml Vial) 25 gm IVPUSH Q15M PRN; Protocol PRN Reason: per Hypoglycemia Standing Ord. Duloxetine HCl (Duloxetine Hcl 60 Mg Capsule.) 60 mg PO DAILY [facility] Last Admin: 03/04/21 08:14 Dose: 60 mg Documented by: KELY Ferrous Sulfate (Ferrous Sulfate 324 Mg Tablet.) 324 mg PO DAILY [facility] Last Admin: 03/04/21 08:14 Dose: 324 mg Documented by: KELY Glucose (Glucose Gel 15 Gm Gel..Gram.) 15 gm PO Q15M PRN; Protocol PRN Reason: per Hypoglycemia Standing Ord. Hydromorphone HCl (Hydromorphone Hcl 0.5 Mg/0.5 Ml Syringe) 0.5 mg IVPUSH Q4H PRN; Protocol PRN Reason: severe pain Last Admin: 03/04/21 02:50 Dose: 0.5 mg Documented by: MASOUD Piperacillin Sod/Tazobactam (Sod 3.375 gm/ Sodium Chloride) 50 mls @ 100 mls/hr IV Q6H [facility] Last Infusion: 03/04/21 08:34 Dose: 100 mls/hr Documented by: KELY Vancomycin HCl 1,500 mg/ (Sodium Chloride) 500 mls @ 333.333 mls/hr IV Q24H [facility] Last Infusion: 03/03/21 15:00 Dose: 0 mls/hr Documented by: ADELAIDA Insulin Glargine (Insulin Glargine,Hum.Rec.Anlog 100 Unit/Ml 10 Ml Vial) 16 unit SUBCUT BEDTIME [facility] Last Admin: 03/03/21 21:45 Dose: Not Given Documented by: NANCY Non-Admin Reason: No Insulin Coverage Comments: pt is not eating very much Insulin Human Lispro (Insulin Lispro 100 Unit/Ml 3 Ml Vial) 0 unit SUBCUT QIDACHS [facility]; Protocol Last Admin: 03/04/21 07:47 Dose: Not Given Documented by: KELY Non-Admin Reason: No Insulin Coverage Loperamide HCl (Loperamide Hcl 2 Mg Capsule) 4 mg PO Q4H PRN PRN Reason: diarrhea Lorazepam (Lorazepam 0.5 Mg Tablet) 0.5 mg PO BID [facility] Last Admin: 03/04/21 08:15 Dose: 0.5 mg Documented by: KELY Metoprolol Tartrate (Metoprolol Tartrate 12.5 Mg Halftab) 12.5 mg PO BID [facility]; Protocol Last Admin: 03/04/21 10:06 Dose: Not Given Documented by: KELY Non-Admin Reason: Decreased Blood Pressure Miconazole Nitrate (Miconazole Nitrate 2% Powder 85 Gm Bottle) 1 appl TOPICAL BID [facility]; Protocol Omeprazole (Omeprazole 20 Mg Capsule.Dr) 20 mg PO DAILY@0630 [facility] Last Admin: 03/04/21 06:10 Dose: 20 mg Documented by: MASOUD Ondansetron HCl (Ondansetron Hcl 4 Mg/2 Ml Vial) 4 mg IVPUSH Q8H PRN PRN Reason: Nausea and Vomiting Oxycodone HCl (Oxycodone Hcl Immed Release 5 Mg Tablet) 5 mg PO Q12H PRN PRN Reason: Pain (Scale Score 4-6) Last Admin: 03/04/21 06:10 Dose: 5 mg Documented by: MASOUD Oxycodone HCl (Oxycodone Hcl Er 10 Mg Tab.Er.12h) 10 mg PO BID [facility] Last Admin: 03/03/21 21:31 Dose: 10 mg Documented by: NANCY Pharmacy Consult (Consult Rx Perform Med Rec) 1 each MISCELLANE ONCE PRN PRN Reason: Consult order Pravastatin Sodium (Pravastatin Sodium 40 Mg Tablet) 40 mg PO BEDTIME [facility] Last Admin: 03/03/21 21:32 Dose: 40 mg Documented by: NANCY Sodium Chloride (0.9 % Sodium Chloride Flush 3 Ml Syringe) 3 ml IVFLUSH QSHIFT [facility] Last Admin: 03/04/21 08:15 Dose: 3 ml Documented by: KELY Vitamin D (Cholecalciferol (Vitamin D3) 25 Mcg Tablet) 50 mcg PO DAILY [facility] Last Admin: 03/04/21 08:14 Dose: 50 mcg Documented by: KELY Labs CBC & Chem 7: 03/04/21 06:03 03/05/21 05:58 Labs: Laboratory Results - last 24 hr 03/03/21 03/03/21 03/03/21 11:44 15:52 18:45 MCV MCH MCHC RDW Plt Count MPV Absolute Nucleated RBC Nucleated RBC % (auto) Smear Path Review Estim Creat Clear Calc Estimated GFR POC Glucose 148 H 179 H Magnesium Iron TIBC % Saturation Unsat Iron Binding C. difficile Tox B Gene NEGATIVE 03/03/21 03/04/21 03/04/21 20:50 06:03 06:03 MCV 80.8 MCH 24.9 L MCHC 30.8 L RDW 16.6 H Plt Count 350 MPV 10.7 Absolute Nucleated RBC 0.080 H Nucleated RBC % (auto) 1.0 H Smear Path Review SEE NOTE Estim Creat Clear Calc 32.8 Estimated GFR 39 POC Glucose 102 Magnesium 2.1 Iron 18 L TIBC 130 L % Saturation 14 L Unsat Iron Binding 112 C. difficile Tox B Gene 03/04/21 07:40 MCV MCH MCHC RDW Plt Count MPV Absolute Nucleated RBC Nucleated RBC % (auto) Smear Path Review Estim Creat Clear Calc Estimated GFR POC Glucose 123 H Magnesium Iron TIBC % Saturation Unsat Iron Binding C. difficile Tox B Gene Microbiology Microbiology Results: Microbiology 03/01/21 12:48 Blood Culture - Preliminary Blood - Venous No growth after 48 hours. 03/01/21 12:38 Blood Culture - Preliminary Blood - Venous No growth after 48 hours. 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: Status: Acute Assessment and Plan: Wound care will be difficult in view of frequent soiling Lucero catheter , rectal tube may be helpful to minimize this Fecal diversion via a may also be an option but patient is frail looking at this time Attempted to discuss wound care with family - no one picking up phone currently Discussed with hospitalist service Patient also seen by wound care - consult with Plastic surgery, hyperbaric treatment recommended Fall Risk Details Current Medications: Current Medications Acetaminophen (Acetaminophen 325 Mg Tablet) 650 mg PO Q6H PRN PRN Reason: Pain, Mild (Pain Scale 1-3) Albuterol Sulfate (Albuterol Sulfate 90 Mcg 8 Gm Inhaler) 2 puff INHALE Q6H PRN PRN Reason: Shortness Of Breath Or Wheezing Amiodarone HCl (Amiodarone Hcl 200 Mg Tablet) 400 mg PO BID [facility] Last Admin: 03/04/21 08:14 Dose: 400 mg Documented by: Apixaban (Apixaban 5 Mg Tablet) 5 mg PO BID [facility] Last Admin: 03/04/21 08:15 Dose: 5 mg Documented by: Cyanocobalamin (Cyanocobalamin (Vitamin B-12) 1,000 Mcg Tablet) 1,000 mcg PO DAILY [facility] Last Admin: 03/04/21 08:14 Dose: 1,000 mcg Documented by: Dextrose (Dextrose 50 % 25 Gm/50 Ml Vial) 25 gm IVPUSH Q15M PRN; Protocol PRN Reason: per Hypoglycemia Standing Ord. Duloxetine HCl (Duloxetine Hcl 60 Mg Capsule.) 60 mg PO DAILY [facility] Last Admin: 03/04/21 08:14 Dose: 60 mg Documented by: Ferrous Sulfate (Ferrous Sulfate 324 Mg Tablet.) 324 mg PO DAILY [facility] Last Admin: 03/04/21 08:14 Dose: 324 mg Documented by: Glucose (Glucose Gel 15 Gm Gel..Gram.) 15 gm PO Q15M PRN; Protocol PRN Reason: per Hypoglycemia Standing Ord. Hydromorphone HCl (Hydromorphone Hcl 0.5 Mg/0.5 Ml Syringe) 0.5 mg IVPUSH Q4H PRN; Protocol PRN Reason: severe pain Last Admin: 03/04/21 02:50 Dose: 0.5 mg Documented by: Piperacillin Sod/Tazobactam (Sod 3.375 gm/ Sodium Chloride) 50 mls @ 100 mls/hr IV Q6H [facility] Last Infusion: 03/04/21 08:34 Dose: Infused Documented by: Vancomycin HCl 1,500 mg/ (Sodium Chloride) 500 mls @ 333.333 mls/hr IV Q24H [facility] Last Infusion: 03/03/21 15:00 Dose: Infused Documented by: Insulin Glargine (Insulin Glargine,Hum.Rec.Anlog 100 Unit/Ml 10 Ml Vial) 16 unit SUBCUT BEDTIME [facility] Last Admin: 03/03/21 21:45 Dose: Not Given Documented by: Insulin Human Lispro (Insulin Lispro 100 Unit/Ml 3 Ml Vial) 0 unit SUBCUT QIDACHS [facility]; Protocol Last Admin: 03/04/21 07:47 Dose: Not Given Documented by: Loperamide HCl (Loperamide Hcl 2 Mg Capsule) 4 mg PO Q4H PRN PRN Reason: diarrhea Lorazepam (Lorazepam 0.5 Mg Tablet) 0.5 mg PO BID [facility] Last Admin: 03/04/21 08:15 Dose: 0.5 mg Documented by: Metoprolol Tartrate (Metoprolol Tartrate 12.5 Mg Halftab) 12.5 mg PO BID [facility]; Protocol Last Admin: 03/04/21 10:06 Dose: Not Given Documented by: Miconazole Nitrate (Miconazole Nitrate 2% Powder 85 Gm Bottle) 1 appl TOPICAL BID [facility]; Protocol Omeprazole (Omeprazole 20 Mg Capsule.) 20 mg PO DAILY@0630 [facility] Last Admin: 03/04/21 06:10 Dose: 20 mg Documented by: Ondansetron HCl (Ondansetron Hcl 4 Mg/2 Ml Vial) 4 mg IVPUSH Q8H PRN PRN Reason: Nausea and Vomiting Oxycodone HCl (Oxycodone Hcl Immed Release 5 Mg Tablet) 5 mg PO Q12H PRN PRN Reason: Pain (Scale Score 4-6) Last Admin: 03/04/21 06:10 Dose: 5 mg Documented by: Oxycodone HCl (Oxycodone Hcl Er 10 Mg Tab.Er.12h) 10 mg PO BID [facility] Last Admin: 03/03/21 21:31 Dose: 10 mg Documented by: Pharmacy Consult (Consult Rx Perform Med Rec) 1 each MISCELLANE ONCE PRN PRN Reason: Consult order Pravastatin Sodium (Pravastatin Sodium 40 Mg Tablet) 40 mg PO BEDTIME [facility] Last Admin: 03/03/21 21:32 Dose: 40 mg Documented by: Sodium Chloride (0.9 % Sodium Chloride Flush 3 Ml Syringe) 3 ml IVFLUSH QSHIFT [facility] Last Admin: 03/04/21 08:15 Dose: 3 ml Documented by: Vitamin D (Cholecalciferol (Vitamin D3) 25 Mcg Tablet) 50 mcg PO DAILY [facility] Last Admin: 03/04/21 08:14 Dose: 50 mcg Documented by: Time Spent With Patient Time: Total time spent is greater than 50% in coordination of care (as documented) at patient's floor/unit and/or counseling patient: Time with patient: 15 - 24 minutes Quality Stroke Does the patient have a stroke diagnosis?: No VTE Prior VTE?: No VTE Risk Level:: Medical - moderate - high VTE Device Contraindication: N/A - Device Ordered VTE Drug Contraindication: N/A - Med Ordered
[2021-03-04] MEDS: Miconazole Nitrate 2% Powder 85 GM Bottle 1 APPL TOPICAL ×2 (10:39→22:19)
[2021-03-04 11:27] LABS: Glucose, Whole Blood 165 mg/dL (60-115)
[2021-03-04 11:44] LABS: Vancomycin Trough 22.3 mcg/mL (10.0-20.0)
--- NOTE | 2021-03-04 13:17 | MHC.CLN ---
F/U PATIENT IS CURRENTLY NPO. PRIOR DIET=DIABETIC 2000 KCAL, GLUCERNA BID AND KATHY BID TO PROMOTE WOUND HEALING. MONTITOR FOR DIET ADVANCEMENT AND INTAKE.
[2021-03-04 16:09] LABS: Glucose, Whole Blood 161 mg/dL (60-115)
--- NOTE | 2021-03-04 16:28 | PC.NURSE ---
pt yelling out in pain due to being incontinent of urine/stool. Dr corrales notified about pain control because she only had po oxycodone to be given, and is currently NPO to get a roper and rectal tube place under anesthesia. MD ordered one time dose of 2mg IVP morphine to be given prior to being cleaned up, and repo
[2021-03-04] MEDS: Morphine Sulfate 2 MG/ML CARTRIDGE IVPUSH (16:38)
--- NOTE | 2021-03-04 16:40 | HO.PM.IMPN ---
Subjective Subjective Date of Service: 03/04/21 Interval History: Patient offers no acute complaints, but noted to be in significant pain with [employer] is incontinent of urine, had 2 bowel movements today. Review of Systems Review of Systems: Yes all other systems are reviewed and are negative Physical Exam Vital Signs: Vital Signs: Last Vital Signs Temp 97.5 F 03/04/21 15:25 Pulse 74 03/04/21 15:25 Resp 18 03/04/21 15:25 BP 104/52 L 03/04/21 15:25 Pulse Ox 94 03/04/21 15:25 BMI result Body Mass Index 28.9 Gen:? Awake alert x3 no acute distre ss appears chronic ally ill Neck: sup ple, no JVD Chest: R subclavian port Lungs: clear to a uscultation bilate rally Heart:? Regu lar rate rhythm, n o murmurs Abd: sof t, non-tender, non -distended, bowel sounds audible Ext : no edema Skin: w arm/well-perfused, pale, sacral woun d/vulvar wounds un changed refer to p ictures in H&P not es Neuro: alert an d oriented x3, no focal findings Psy ch: appropriate af fect Objective Data Active Medications Acetaminophen (Acetaminophen 325 Mg Tablet) 650 mg PO Q6H PRN PRN Reason: Pain, Mild (Pain Scale 1-3) Albuterol Sulfate (Albuterol Sulfate 90 Mcg 8 Gm Inhaler) 2 puff INHALE Q6H PRN PRN Reason: Shortness Of Breath Or Wheezing Amiodarone HCl (Amiodarone Hcl 200 Mg Tablet) 400 mg PO BID [facility] Last Admin: 03/04/21 08:14 Dose: 400 mg Documented by: KELY Apixaban (Apixaban 5 Mg Tablet) 5 mg PO BID [facility] Last Admin: 03/04/21 08:15 Dose: 5 mg Documented by: KELY Cyanocobalamin (Cyanocobalamin (Vitamin B-12) 1,000 Mcg Tablet) 1,000 mcg PO DAILY [facility] Last Admin: 03/04/21 08:14 Dose: 1,000 mcg Documented by: KELY Dextrose (Dextrose 50 % 25 Gm/50 Ml Vial) 25 gm IVPUSH Q15M PRN; Protocol PRN Reason: per Hypoglycemia Standing Ord. Duloxetine HCl (Duloxetine Hcl 60 Mg Capsule.) 60 mg PO DAILY [facility] Last Admin: 03/04/21 08:14 Dose: 60 mg Documented by: KELY Ferrous Sulfate (Ferrous Sulfate 324 Mg Tablet.) 324 mg PO DAILY [facility] Last Admin: 03/04/21 08:14 Dose: 324 mg Documented by: KELY Glucose (Glucose Gel 15 Gm Gel..Gram.) 15 gm PO Q15M PRN; Protocol PRN Reason: per Hypoglycemia Standing Ord. Hydromorphone HCl (Hydromorphone Hcl 0.5 Mg/0.5 Ml Syringe) 0.5 mg IVPUSH Q4H PRN; Protocol PRN Reason: severe pain Last Admin: 03/04/21 02:50 Dose: 0.5 mg Documented by: MASOUD Piperacillin Sod/Tazobactam (Sod 3.375 gm/ Sodium Chloride) 50 mls @ 100 mls/hr IV Q6H [facility] Last Infusion: 03/04/21 13:48 Dose: 100 mls/hr Documented by: KELY Vancomycin HCl 750 mg/ Sodium (Chloride) 265 mls @ 265 mls/hr IV Q24H [facility] Insulin Glargine (Insulin Glargine,Hum.Rec.Anlog 100 Unit/Ml 10 Ml Vial) 16 unit SUBCUT BEDTIME [facility] Last Admin: 03/03/21 21:45 Dose: Not Given Documented by: NANCY Non-Admin Reason: No Insulin Coverage Comments: pt is not eating very much Insulin Human Lispro (Insulin Lispro 100 Unit/Ml 3 Ml Vial) 0 unit SUBCUT QIDACHS [facility]; Protocol Last Admin: 03/04/21 16:11 Dose: Not Given Documented by: JIMMY Non-Admin Reason: pt npo Loperamide HCl (Loperamide Hcl 2 Mg Capsule) 4 mg PO Q4H PRN PRN Reason: diarrhea Lorazepam (Lorazepam 0.5 Mg Tablet) 0.5 mg PO BID [facility] Last Admin: 03/04/21 08:15 Dose: 0.5 mg Documented by: KELY Miconazole Nitrate (Miconazole Nitrate 2% Powder 85 Gm Bottle) 1 appl TOPICAL BID [facility]; Protocol Last Admin: 03/04/21 10:39 Dose: 1 appl Documented by: KELY Omeprazole (Omeprazole 20 Mg Capsule.Dr) 20 mg PO DAILY@0630 [facility] Last Admin: 03/04/21 06:10 Dose: 20 mg Documented by: MASOUD Ondansetron HCl (Ondansetron Hcl 4 Mg/2 Ml Vial) 4 mg IVPUSH Q8H PRN PRN Reason: Nausea and Vomiting Oxycodone HCl (Oxycodone Hcl Immed Release 5 Mg Tablet) 5 mg PO Q12H PRN PRN Reason: Pain (Scale Score 4-6) Last Admin: 03/04/21 06:10 Dose: 5 mg Documented by: MASOUD Oxycodone HCl (Oxycodone Hcl Er 10 Mg Tab.Er.12h) 10 mg PO BID [facility] Last Admin: 03/04/21 10:52 Dose: Not Given Documented by: KELY Non-Admin Reason: Patient Asleep Pharmacy Consult (Consult Rx Perform Med Rec) 1 each MISCELLANE ONCE PRN PRN Reason: Consult order Pravastatin Sodium (Pravastatin Sodium 40 Mg Tablet) 40 mg PO BEDTIME [facility] Last Admin: 03/03/21 21:32 Dose: 40 mg Documented by: NANCY Sodium Chloride (0.9 % Sodium Chloride Flush 3 Ml Syringe) 3 ml IVFLUSH QSHIFT [facility] Last Admin: 03/04/21 16:38 Dose: 3 ml Documented by: JIMMY Vitamin D (Cholecalciferol (Vitamin D3) 25 Mcg Tablet) 50 mcg PO DAILY [facility] Last Admin: 03/04/21 08:14 Dose: 50 mcg Documented by: KELY Labs CBC & Chem 7: 03/04/21 06:03 03/04/21 06:03 Labs: Laboratory Results - last 24 hr 03/03/21 03/03/21 03/04/21 18:45 20:50 06:03 MCV MCH MCHC RDW Plt Count MPV Absolute Nucleated RBC Nucleated RBC % (auto) Smear Path Review Estim Creat Clear Calc 32.8 Estimated GFR 39 POC Glucose 102 Magnesium 2.1 Iron 18 L TIBC 130 L % Saturation 14 L Unsat Iron Binding 112 Vancomycin Trough C. difficile Tox B Gene NEGATIVE 03/04/21 03/04/21 03/04/21 06:03 07:40 11:06 MCV 80.8 MCH 24.9 L MCHC 30.8 L RDW 16.6 H Plt Count 350 MPV 10.7 Absolute Nucleated RBC 0.080 H Nucleated RBC % (auto) 1.0 H Smear Path Review SEE NOTE Estim Creat Clear Calc Estimated GFR POC Glucose 123 H Magnesium Iron TIBC % Saturation Unsat Iron Binding Vancomycin Trough 22.3 H C. difficile Tox B Gene 03/04/21 03/04/21 11:09 16:05 MCV MCH MCHC RDW Plt Count MPV Absolute Nucleated RBC Nucleated RBC % (auto) Smear Path Review Estim Creat Clear Calc Estimated GFR POC Glucose 165 H 161 H Magnesium Iron TIBC % Saturation Unsat Iron Binding Vancomycin Trough C. difficile Tox B Gene Microbiology Microbiology Results: Microbiology 03/01/21 12:48 Blood Culture - Preliminary Blood - Venous No growth after 48 hours. 03/01/21 12:38 Blood Culture - Preliminary Blood - Venous No growth after 48 hours. 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 inguinal wounds, rapid ventricular response, and lactic acidosis.? She also has breakthrough Covid-19 infection, though is asymptomatic and not hypoxic. # chronic persistent AF with RVR - now in normal sinus rhythm stable ventricular rate, continue amiodarone loading dose 400 mg b.i.d. will DC metoprolol due to low blood pressure continue Eliquis, repeat EKG at a.m. # sacral and vulvar wound infection/cellulitis No sepsis History of recurrent vulvar carcinoma stage III with recent chemotherapy status post chemoradiation in the past Continue IV vancomycin and Zosyn day 4/5 then transition to by mouth antibiotic Case discussed with Dr. Alfaro regarding debridement but since it is chronic wound due to radiation it is difficult to heal, he will discuss with family regarding other options including diverting stoma but however patient is very frail for the procedure will continue frequent position change good nutrition,and to keep the wound clean ??Seen by wound care they feel patient has soft tissue necrosis of pelvis associated with vulvar cancer, recommend using calcium alginate with Aquasol Ag for any drainage, surgery with removal of tissue as indicated ??Continue high-protein diet/frequent Mona care and position change Consulted Dr. Mixon he he will place Lucero catheter to night under anesthesia # breakthrough Covid-19 infection - had 2 doses of mRNA vaccination in the spring. stable oxygenation 95% on room, monitor for hypoxia and respiratory decompensation.? # diarrhea, post-chemotherapy - loperamide prn, C diff negative # anemia noted to have drop in hematocrit , repeat hematocrit stable, no active blood loss noted low MCV , iron studies not consistent with iron deficiency anemia likely anemia of chronic disease # hypo magnesemia repleted and normalized 2.1 # DM2 - stable blood sugars, continue diabetic diet, basal/bolus insulin.? last A1c 7.2 on 12/24/20 # HLD - continue statin # mood disorder - continue duloxetine, lorazepam # chronic pain - continue long-acting oxycodone and prn short-acting oxycodone; and IV hydromorphone for breakthrough pain # VTE ppx - apixaban # code - full Quality Stroke Does the patient have a stroke diagnosis?: No VTE Prior VTE?: No VTE Risk Level:: Medical - moderate - high VTE Device Contraindication: N/A - Device Ordered VTE Drug Contraindication: N/A - Med Ordered
--- NOTE | 2021-03-04 16:52 | PM.UROCN ---
History of Present Illness Consult details Consult date: 03/04/21 Narrative: Requested to see patient regarding difficult Lucero catheter placement On examination Siria has significant perineal breakdown This is secondary to radiation damage after radiation for vulvar carcinoma Excoriation is happening due to urinary and fecal incontinence Unable to place Lucero catheter at bedside secondary to discomfort Recommendation for Lucero catheter placement in operating room under anesthesia as well as rectal tube placement Discussed rectal tube placement with Dr. Alfaro He is in accordance with rectal tube placement under sedation Review of Systems Constitutional: Constitutional: Reports as per HPI and Reports no additional constitutional complaints Cardiovascular: Cardiovascular: Reports as per HPI and Reports no additional cardiovascular complaints Respiratory: Respiratory: Reports as per HPI and Reports no additional respiratory complaints Gastrointestinal: Gastrointestinal: Reports as per HPI and Reports no additional gastrointestinal complaints Genitourinary: Genitourinary: Reports as per HPI Musculoskeletal: Musculoskeletal: Reports no additional musculoskeletal complaints and Reports as per HPI Neurologic: Reports system reviewed and no additional complaints, except as documented and Reports as per HPI PMF Past Medical History Medical History Anticoagulated Atrial fibrillation Chronic pain Depression Diabetes Failure to thrive in adult History of ovarian cancer History of uterine cancer 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 Vulvar cancer Family History Family History Mother CAD (coronary artery disease) Surgical History Surgical History History of appendectomy History of carpal tunnel release History of cholecystectomy History of hysterectomy for cancer History of knee replacement History of salpingo-oophorectomy History of vulvectomy Social History Social History Household Members: Spouse Housing: Apartment Do you presently have visiting nurse or other home services: No Patient Tobacco Use Status: Never used Tobacco service: No Meds Allergies Allergy/AdvReac Type Severity Reaction Status Date / Time No Known Allergies Allergy Verified 03/01/21 11:33 Active Medications: Current Medications Acetaminophen (Acetaminophen 325 Mg Tablet) 650 mg PO Q6H PRN PRN Reason: Pain, Mild (Pain Scale 1-3) Albuterol Sulfate (Albuterol Sulfate 90 Mcg 8 Gm Inhaler) 2 puff INHALE Q6H PRN PRN Reason: Shortness Of Breath Or Wheezing Amiodarone HCl (Amiodarone Hcl 200 Mg Tablet) 400 mg PO BID [facility] Last Admin: 03/04/21 08:14 Dose: 400 mg Documented by: Apixaban (Apixaban 5 Mg Tablet) 5 mg PO BID [facility] Last Admin: 03/04/21 08:15 Dose: 5 mg Documented by: Cyanocobalamin (Cyanocobalamin (Vitamin B-12) 1,000 Mcg Tablet) 1,000 mcg PO DAILY [facility] Last Admin: 03/04/21 08:14 Dose: 1,000 mcg Documented by: Dextrose (Dextrose 50 % 25 Gm/50 Ml Vial) 25 gm IVPUSH Q15M PRN; Protocol PRN Reason: per Hypoglycemia Standing Ord. Duloxetine HCl (Duloxetine Hcl 60 Mg Capsule.) 60 mg PO DAILY [facility] Last Admin: 03/04/21 08:14 Dose: 60 mg Documented by: Ferrous Sulfate (Ferrous Sulfate 324 Mg Tablet.) 324 mg PO DAILY [facility] Last Admin: 03/04/21 08:14 Dose: 324 mg Documented by: Glucose (Glucose Gel 15 Gm Gel..Gram.) 15 gm PO Q15M PRN; Protocol PRN Reason: per Hypoglycemia Standing Ord. Hydromorphone HCl (Hydromorphone Hcl 0.5 Mg/0.5 Ml Syringe) 0.5 mg IVPUSH Q4H PRN; Protocol PRN Reason: severe pain Last Admin: 03/04/21 02:50 Dose: 0.5 mg Documented by: Piperacillin Sod/Tazobactam (Sod 3.375 gm/ Sodium Chloride) 50 mls @ 100 mls/hr IV Q6H [facility] Last Infusion: 03/04/21 13:48 Dose: Infused Documented by: Vancomycin HCl 750 mg/ Sodium (Chloride) 265 mls @ 265 mls/hr IV Q24H [facility] Insulin Glargine (Insulin Glargine,Hum.Rec.Anlog 100 Unit/Ml 10 Ml Vial) 16 unit SUBCUT BEDTIME [facility] Last Admin: 03/03/21 21:45 Dose: Not Given Documented by: Insulin Human Lispro (Insulin Lispro 100 Unit/Ml 3 Ml Vial) 0 unit SUBCUT QIDACHS [facility]; Protocol Last Admin: 03/04/21 16:11 Dose: Not Given Documented by: Loperamide HCl (Loperamide Hcl 2 Mg Capsule) 4 mg PO Q4H PRN PRN Reason: diarrhea Lorazepam (Lorazepam 0.5 Mg Tablet) 0.5 mg PO BID [facility] Last Admin: 03/04/21 08:15 Dose: 0.5 mg Documented by: Miconazole Nitrate (Miconazole Nitrate 2% Powder 85 Gm Bottle) 1 appl TOPICAL BID [facility]; Protocol Last Admin: 03/04/21 10:39 Dose: 1 appl Documented by: Omeprazole (Omeprazole 20 Mg Capsule.Dr) 20 mg PO DAILY@0630 [facility] Last Admin: 03/04/21 06:10 Dose: 20 mg Documented by: Ondansetron HCl (Ondansetron Hcl 4 Mg/2 Ml Vial) 4 mg IVPUSH Q8H PRN PRN Reason: Nausea and Vomiting Oxycodone HCl (Oxycodone Hcl Immed Release 5 Mg Tablet) 5 mg PO Q12H PRN PRN Reason: Pain (Scale Score 4-6) Last Admin: 03/04/21 06:10 Dose: 5 mg Documented by: Oxycodone HCl (Oxycodone Hcl Er 10 Mg Tab.Er.12h) 10 mg PO BID [facility] Last Admin: 03/04/21 10:52 Dose: Not Given Documented by: Pharmacy Consult (Consult Rx Perform Med Rec) 1 each MISCELLANE ONCE PRN PRN Reason: Consult order Pravastatin Sodium (Pravastatin Sodium 40 Mg Tablet) 40 mg PO BEDTIME [facility] Last Admin: 03/03/21 21:32 Dose: 40 mg Documented by: Sodium Chloride (0.9 % Sodium Chloride Flush 3 Ml Syringe) 3 ml IVFLUSH QSHIFT [facility] Last Admin: 03/04/21 16:38 Dose: 3 ml Documented by: Vitamin D (Cholecalciferol (Vitamin D3) 25 Mcg Tablet) 50 mcg PO DAILY [facility] Last Admin: 03/04/21 08:14 Dose: 50 mcg Documented by: Home Medications Medication Instructions Recorded Confirmed Last Taken Type Magic Mouthwash 10 ml PO TIDAC 03/01/21 03/01/21 Unknown History albuterol sulfate 90 mcg/actuation 2 puff INHALATION Q6H PRN 03/01/21 03/01/21 Unknown History aerosol inhaler (ProAir HFA) apixaban 5 mg tablet 5 mg PO BID 1203/01/21 03/01/21 History cholecalciferol (vitamin D3) 50 50 mcg PO DAILY 03/01/21 03/01/21 03/01/21 History mcg (2,000 unit) capsule (Vitamin D3) cyanocobalamin (vitamin B-12) 1,000 mcg PO DAILY 03/01/21 03/01/21 03/01/21 History 1,000 mcg tablet docusate sodium 100 mg capsule 100 mg PO BID 03/01/21 03/01/21 03/01/21 History duloxetine 60 mg capsule,delayed 60 mg PO DAILY 03/01/21 03/01/21 03/01/21 History release ferrous sulfate 324 mg (65 mg 324 mg PO DAILY 03/01/21 03/01/21 03/01/21 History iron) tablet,delayed release insulin glargine 100 unit/mL 16 unit SUBCUT BEDTIME 03/01/21 03/01/21 02/28/21 History subcutaneous solution (Lantus U-100 Insulin) insulin lispro 100 unit/mL 1 sliding scale dose SUBCUT QIDACHS 03/01/21 03/01/21 Unknown History subcutaneous solution (Humalog U-100 Insulin) loperamide 2 mg tablet 2 mg PO Q8H PRN 03/01/21 03/01/21 Unknown History lorazepam 0.5 mg tablet 0.5 mg PO BID 03/01/21 03/01/21 03/01/21 History lovastatin 40 mg tablet 40 mg PO BEDTIME 03/01/21 03/01/21 02/28/21 History metoprolol tartrate 25 mg tablet 12.5 mg PO BID 03/01/21 03/01/21 03/01/21 History omeprazole 20 mg capsule,delayed 20 mg PO DAILY@0630 03/01/21 03/01/21 03/01/21 History release oxycodone 10 mg tablet,crush 10 mg PO BID 03/01/21 03/01/21 03/01/21 History resistant,extended release 12 hr (OxyContin) oxycodone 5 mg tablet 5 mg PO Q12H PRN 03/01/21 03/01/21 Unknown History polyethylene glycol 3350 17 17 g PO DAILY 03/01/21 03/01/21 Unknown History gram/dose oral powder (Miralax) prochlorperazine maleate 10 mg 10 mg PO Q6H PRN 03/01/21 03/01/21 Unknown History tablet Physical Exam Vital Signs: Vital Signs: Last Vital Signs Temp 97.5 F 03/04/21 15:25 Pulse 74 03/04/21 15:25 Resp 18 03/04/21 15:25 BP 104/52 L 03/04/21 15:25 Pulse Ox 94 03/04/21 15:25 BMI result Body Mass Index 28.9 Const: General: cooperative, healthy appearing, comfortable and no acute distress Orientation/consciousness: patient oriented x3 HENMT: Face and sinus: Yes normal facial exam Mouth: moist mucous membranes Neck: Neck: Yes normal visual inspection, Yes full ROM and Yes trachea midline Chest: Chest palpation & inspection: normal inspection of the chest Resp: Effort & Inspection: normal respiratory effort, able to speak in complete sentences and no respiratory distress GI: Inspection: Yes normal to inspection Back/Spine/Pelvis: Cervical Spine: normal cervical lordosis Thoracic/Lumbar Spine: thoracic and lumbar spine normal to inspection Skin: General skin exam: no rashes or lesions noted Neuro: General: patient oriented x3, tone normal and moves all extremities Extrem: General: Yes normal to inspection and Yes capillary refill normal Results Labs Result diagrams: 03/04/21 06:03 03/04/21 06:03 Labs: Abnormal lab results 03/04/21 03/04/21 03/04/21 Range/Units 06:03 06:03 07:40 RBC 3.86 L (4.20-5.50) X10*6/uL Hgb 9.6 L (12.0-16.0) g/dl Hct 31.2 L (37.0-47.0) % MCH 24.9 L (27.0-33.0) pg MCHC 30.8 L (31.0-35.0) g/dl RDW 16.6 H (11.0-16.0) % Absolute Nucleated RBC 0.080 H (0.0-0.012) X10*3/uL Nucleated RBC % (auto) 1.0 H (0.0-0.2) /100WBC POC Glucose 123 H (60-115) mg/dL Iron 18 L (30-160) mcg/dL TIBC 130 L (228-428) mcg/dL % Saturation 14 L (15-50) % Vancomycin Trough (10.0-20.0) mcg/mL 03/04/21 03/04/21 03/04/21 Range/Units 11:06 11:09 16:05 RBC (4.20-5.50) X10*6/uL Hgb (12.0-16.0) g/dl Hct (37.0-47.0) % MCH (27.0-33.0) pg MCHC (31.0-35.0) g/dl RDW (11.0-16.0) % Absolute Nucleated RBC (0.0-0.012) X10*3/uL Nucleated RBC % (auto) (0.0-0.2) /100WBC POC Glucose 165 H 161 H (60-115) mg/dL Iron (30-160) mcg/dL TIBC (228-428) mcg/dL % Saturation (15-50) % Vancomycin Trough 22.3 H (10.0-20.0) mcg/mL Short CBC 03/04/21 Range/Units 06:03 WBC 7.9 (4.8-10.8) X10*3/uL Hgb 9.6 L (12.0-16.0) g/dl Hct 31.2 L (37.0-47.0) % Plt Count 350 (160-400) X10*3/uL [facility] 03/04/21 06:03 Creatinine 1.32 All other labs normal. 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 These include but are not limited to infection, bleeding, damage to local organs and tissues, need for further interventions. Anesthetic risks regarding cardiac arrhythmia, blood clots, and potential mortality were discussed. The patient understands the typical recovery time and the outpatient nature of the procedure. After consideration of these risks the patient gives full informed consent and they wish to move ahead with the procedure. Procedures Date of Service Date of Service: 03/04/21
--- NOTE | 2021-03-04 17:47 | P.CONAN_ITS ---
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 Vulvar cancer Family History Family History Mother CAD (coronary artery disease) Surgical History Surgical History History of appendectomy History of carpal tunnel release History of cholecystectomy History of hysterectomy for cancer History of knee replacement History of salpingo-oophorectomy History of vulvectomy Social History Social History Household Members: Spouse Housing: Apartment Do you presently have visiting nurse or other home services: No Patient Tobacco Use Status: Never used Tobacco service: No Meds Allergies Allergy/AdvReac Type Severity Reaction Status Date / Time No Known Allergies Allergy Verified 03/01/21 11:33 Active Medications: Current Medications Acetaminophen (Acetaminophen 325 Mg Tablet) 650 mg PO Q6H PRN PRN Reason: Pain, Mild (Pain Scale 1-3) Albuterol Sulfate (Albuterol Sulfate 90 Mcg 8 Gm Inhaler) 2 puff INHALE Q6H PRN PRN Reason: Shortness Of Breath Or Wheezing Amiodarone HCl (Amiodarone Hcl 200 Mg Tablet) 400 mg PO BID [facility] [place] Last Admin: 03/04/21 08:14 Dose: 400 mg Documented by: Apixaban (Apixaban 5 Mg Tablet) 5 mg PO BID [facility] [place] Last Admin: 03/04/21 08:15 Dose: 5 mg Documented by: Cyanocobalamin (Cyanocobalamin (Vitamin B-12) 1,000 Mcg Tablet) 1,000 mcg PO DAILY [facility] [place] Last Admin: 03/04/21 08:14 Dose: 1,000 mcg Documented by: Dextrose (Dextrose 50 % 25 Gm/50 Ml Vial) 25 gm IVPUSH Q15M PRN; Protocol PRN Reason: per Hypoglycemia Standing Ord. Duloxetine HCl (Duloxetine Hcl 60 Mg Capsule.) 60 mg PO DAILY [facility] [place] Last Admin: 03/04/21 08:14 Dose: 60 mg Documented by: Ferrous Sulfate (Ferrous Sulfate 324 Mg Tablet.) 324 mg PO DAILY [facility] [place] Last Admin: 03/04/21 08:14 Dose: 324 mg Documented by: Glucose (Glucose Gel 15 Gm Gel..Gram.) 15 gm PO Q15M PRN; Protocol PRN Reason: per Hypoglycemia Standing Ord. Hydromorphone HCl (Hydromorphone Hcl 0.5 Mg/0.5 Ml Syringe) 0.5 mg IVPUSH Q4H PRN; Protocol PRN Reason: severe pain Last Admin: 03/04/21 02:50 Dose: 0.5 mg Documented by: Piperacillin Sod/Tazobactam (Sod 3.375 gm/ Sodium Chloride) 50 mls @ 100 mls/hr IV Q6H [facility] [place] Last Infusion: 03/04/21 13:48 Dose: Infused Documented by: Vancomycin HCl 750 mg/ Sodium (Chloride) 265 mls @ 265 mls/hr IV Q24H [facility] [place] Insulin Glargine (Insulin Glargine,Hum.Rec.Anlog 100 Unit/Ml 10 Ml Vial) 16 unit SUBCUT BEDTIME [facility] [place] Last Admin: 03/03/21 21:45 Dose: Not Given Documented by: Insulin Human Lispro (Insulin Lispro 100 Unit/Ml 3 Ml Vial) 0 unit SUBCUT QIDACHS [facility] [place]; Protocol Last Admin: 03/04/21 16:11 Dose: Not Given Documented by: Loperamide HCl (Loperamide Hcl 2 Mg Capsule) 4 mg PO Q4H PRN PRN Reason: diarrhea Lorazepam (Lorazepam 0.5 Mg Tablet) 0.5 mg PO BID [facility] [place] Last Admin: 03/04/21 08:15 Dose: 0.5 mg Documented by: Miconazole Nitrate (Miconazole Nitrate 2% Powder 85 Gm Bottle) 1 appl TOPICAL BID [facility] [place]; Protocol Last Admin: 03/04/21 10:39 Dose: 1 appl Documented by: Omeprazole (Omeprazole 20 Mg Capsule.) 20 mg PO DAILY@0630 [facility] [place] Last Admin: 03/04/21 06:10 Dose: 20 mg Documented by: Ondansetron HCl (Ondansetron Hcl 4 Mg/2 Ml Vial) 4 mg IVPUSH Q8H PRN PRN Reason: Nausea and Vomiting Oxycodone HCl (Oxycodone Hcl Immed Release 5 Mg Tablet) 5 mg PO Q12H PRN PRN Reason: Pain (Scale Score 4-6) Last Admin: 03/04/21 06:10 Dose: 5 mg Documented by: Oxycodone HCl (Oxycodone Hcl Er 10 Mg Tab.Er.12h) 10 mg PO BID [facility] [place] Last Admin: 03/04/21 10:52 Dose: Not Given Documented by: Pharmacy Consult (Consult Rx Perform Med Rec) 1 each MISCELLANE ONCE PRN PRN Reason: Consult order Pravastatin Sodium (Pravastatin Sodium 40 Mg Tablet) 40 mg PO BEDTIME [facility] [place] Last Admin: 03/03/21 21:32 Dose: 40 mg Documented by: Sodium Chloride (0.9 % Sodium Chloride Flush 3 Ml Syringe) 3 ml IVFLUSH QSHIFT [facility] [place] Last Admin: 03/04/21 16:38 Dose: 3 ml Documented by: Vitamin D (Cholecalciferol (Vitamin D3) 25 Mcg Tablet) 50 mcg PO DAILY [facility] [place] Last Admin: 03/04/21 08:14 Dose: 50 mcg Documented by: Home Medications Medication Instructions Recorded Confirmed Last Taken Type Magic Mouthwash 10 ml PO TIDAC 03/01/21 03/01/21 Unknown History albuterol sulfate 90 mcg/actuation 2 puff INHALATION Q6H PRN 03/01/21 03/01/21 Unknown History aerosol inhaler (ProAir HFA) apixaban 5 mg tablet 5 mg PO BID 03/01/21 03/01/21 03/01/21 History cholecalciferol (vitamin D3) 50 50 mcg PO DAILY 03/01/21 03/01/21 03/01/21 History mcg (2,000 unit) capsule (Vitamin D3) cyanocobalamin (vitamin B-12) 1,000 mcg PO DAILY 03/01/21 03/01/21 03/01/21 History 1,000 mcg tablet docusate sodium 100 mg capsule 100 mg PO BID 03/01/21 03/01/21 03/01/21 History duloxetine 60 mg capsule,delayed 60 mg PO DAILY 03/01/21 03/01/21 03/01/21 History release ferrous sulfate 324 mg (65 mg 324 mg PO DAILY 03/01/21 03/01/21 03/01/21 History iron) tablet,delayed release insulin glargine 100 unit/mL 16 unit SUBCUT BEDTIME 03/01/21 03/01/21 02/28/21 History subcutaneous solution (Lantus U-100 Insulin) insulin lispro 100 unit/mL 1 sliding scale dose SUBCUT QIDACHS 03/01/21 03/01/21 Unknown History subcutaneous solution (Humalog U-100 Insulin) loperamide 2 mg tablet 2 mg PO Q8H PRN 03/01/21 03/01/21 Unknown History lorazepam 0.5 mg tablet 0.5 mg PO BID 03/01/21 03/01/21 03/01/21 History lovastatin 40 mg tablet 40 mg PO BEDTIME 03/01/21 03/01/21 02/28/21 History metoprolol tartrate 25 mg tablet 12.5 mg PO BID 03/01/21 03/01/21 03/01/21 History omeprazole 20 mg capsule,delayed 20 mg PO DAILY@0630 03/01/21 03/01/21 03/01/21 History release oxycodone 10 mg tablet,crush 10 mg PO BID 03/01/21 03/01/21 03/01/21 History resistant,extended release 12 hr (OxyContin) oxycodone 5 mg tablet 5 mg PO Q12H PRN 03/01/21 03/01/21 Unknown History polyethylene glycol 3350 17 17 g PO DAILY 03/01/21 03/01/21 Unknown History gram/dose oral powder (Miralax) prochlorperazine maleate 10 mg 10 mg PO Q6H PRN 03/01/21 03/01/21 Unknown History tablet Exam Exam Date and Time: March 04, [id number] Height,Weight and Vital Signs: Height 5 ft 1 in Weight 69.4 kg Last Vital Signs Temp 97.5 F 03/04/21 15:25 Pulse 74 03/04/21 15:25 Resp 18 03/04/21 15:25 BP 104/52 L 03/04/21 15:25 Pulse Ox 94 03/04/21 15:25 Pertinent Lab Results Pertinent Lab Results: Laboratory Tests 03/01/21 03/01/2121 11:39 12:14 12:14 WBC 5.8 RBC 4.69 Hgb 11.7 L Hct 36.8 L MCV 78.5 L MCH 24.9 L MCHC 31.8 RDW 16.5 H Plt Count 361 MPV 10.1 Immature Gran % (Auto) Cancelled Neut % (Auto) Cancelled Lymph % (Auto) Cancelled [place] % (Auto) Cancelled Eos % (Auto) Cancelled Baso % (Auto) Cancelled Lymph # (Auto) Cancelled [place] # (Auto) Cancelled Eos # (Auto) Cancelled Baso # (Auto) Cancelled Abs Immat Gran (auto) Cancelled Absolute Neuts (auto) Cancelled Absolute Nucleated RBC 0.000 Nucleated RBC % (auto) 0.0 Neutrophils % (Manual) 80 H Band Neutrophils % 9 H Lymphocytes % (Manual) 3 L Monocytes % (Manual) 8 Abs Neuts (Manual) 5.2 Lymphocytes # (Manual) 0.2 L Monocytes # (Manual) 0.5 Platelet Estimate NORMAL Large Platelets PRESENT Plt Morphology Comment NOTED RBC Morphology NOTED Ovalocytes 1+ (5-14) [place] Cells 2+ (3-5) Rouleaux PRESENT Smear Path Review ESR 39 H PT INR APTT Sodium Potassium Chloride Carbon Dioxide Anion Gap BUN Creatinine Estim Creat Clear Calc Estimated GFR POC Glucose Random Glucose Lactic Acid Lactic Acid F/U @ 2Hr Lactic Acid F/U @ 4Hr Calcium Magnesium Iron TIBC % Saturation Unsat Iron Binding Ferritin Total Bilirubin Direct Bilirubin AST ALT Alkaline Phosphatase Lactate Dehydrogenase Total Creatine Kinase Troponin I High Sens C-Reactive Protein B-Natriuretic Peptide Total Protein Albumin Procalcitonin Vancomycin Trough C. difficile Tox B Gene COVID-19 (BRAD) Positive A COVID-19 Clin Com See Note 03/01/21 03/01/21 03/01/21 12:14 12:14 12:14 WBC RBC Hgb Hct MCV MCH MCHC RDW Plt Count MPV Immature Gran % (Auto) Neut % (Auto) Lymph % (Auto) [place] % (Auto) Eos % (Auto) Baso % (Auto) Lymph # (Auto) [place] # (Auto) Eos # (Auto) Baso # (Auto) Abs Immat Gran (auto) Absolute Neuts (auto) Absolute Nucleated RBC Nucleated RBC % (auto) Neutrophils % (Manual) Band Neutrophils % Lymphocytes % (Manual) Monocytes % (Manual) Abs Neuts (Manual) Lymphocytes # (Manual) Monocytes # (Manual) Platelet Estimate Large Platelets Plt Morphology Comment RBC Morphology Ovalocytes [place] Cells Rouleaux Smear Path Review ESR PT 15.3 H INR 1.3 H APTT 29.7 Sodium 135 Potassium 3.7 Chloride 98 Carbon Dioxide 25 Anion Gap 16 BUN 8 L Creatinine 0.72 Estim Creat Clear Calc 60.1 Estimated GFR > 60 POC Glucose Random Glucose 207 H Lactic Acid 3.6 H* Lactic Acid F/U @ 2Hr Lactic Acid F/U @ 4Hr Calcium 8.3 L Magnesium 1.6 Iron TIBC % Saturation Unsat Iron Binding Ferritin Total Bilirubin 0.4 Direct Bilirubin 0.3 AST 35 H ALT 13 Alkaline Phosphatase 112 Lactate Dehydrogenase 203 Total Creatine Kinase 20 L Troponin I High Sens C-Reactive Protein 14.58 H B-Natriuretic Peptide Total Protein 5.4 L Albumin 2.3 L Procalcitonin Vancomycin Trough C. difficile Tox B Gene COVID-19 (BRAD) COVID-19 Adma[facility] Com 03/01/21 03/01/21 03/01/21 12:14 12:14 12:14 WBC RBC Hgb Hct MCV MCH MCHC RDW Plt Count MPV Immature Gran % (Auto) Neut % (Auto) Lymph % (Auto) [place] % (Auto) Eos % (Auto) Baso % (Auto) Lymph # (Auto) [place] # (Auto) Eos # (Auto) Baso # (Auto) Abs Immat Gran (auto) Absolute Neuts (auto) Absolute Nucleated RBC Nucleated RBC % (auto) Neutrophils % (Manual) Band Neutrophils % Lymphocytes % (Manual) Monocytes % (Manual) Abs Neuts (Manual) Lymphocytes # (Manual) Monocytes # (Manual) Platelet Estimate Large Platelets Plt Morphology Comment RBC Morphology Ovalocytes [place] Cells Rouleaux Smear Path Review ESR PT INR APTT Sodium Potassium Chloride Carbon Dioxide Anion Gap BUN Creatinine Estim Creat Clear Calc Estimated GFR POC Glucose Random Glucose Lactic Acid Lactic Acid F/U @ 2Hr Lactic Acid F/U @ 4Hr Calcium Magnesium Iron TIBC % Saturation Unsat Iron Binding Ferritin 525 H Total Bilirubin Direct Bilirubin AST ALT Alkaline Phosphatase Lactate Dehydrogenase Total Creatine Kinase Troponin I High Sens 3.7 C-Reactive Protein B-Natriuretic Peptide 270 H Total Protein Albumin Procalcitonin 0.09 Vancomycin Trough C. difficile Tox B Gene COVID-19 (BRAD) COVID-19 Admazely Com 03/01/21 03/01/21 03/02/21 16:25 19:02 07:23 WBC 4.2 L RBC 3.77 L Hgb 9.3 L D Hct 29.0 L D MCV 76.9 L MCH 24.7 L MCHC 32.1 RDW 16.4 H Plt Count 371 MPV 10.7 Immature Gran % (Auto) Neut % (Auto) Lymph % (Auto) [place] % (Auto) Eos % (Auto) Baso % (Auto) Lymph # (Auto) [place] # (Auto) Eos # (Auto) Baso # (Auto) Abs Immat Gran (auto) Absolute Neuts (auto) Absolute Nucleated RBC 0.000 Nucleated RBC % (auto) 0.0 Neutrophils % (Manual) Band Neutrophils % Lymphocytes % (Manual) Monocytes % (Manual) Abs Neuts (Manual) Lymphocytes # (Manual) Monocytes # (Manual) Platelet Estimate Large Platelets Plt Morphology Comment RBC Morphology Ovalocytes [place] Cells Rouleaux Smear Path Review ESR PT INR APTT Sodium Potassium Chloride Carbon Dioxide Anion Gap BUN Creatinine Estim Creat Clear Calc Estimated GFR POC Glucose Random Glucose Lactic Acid Lactic Acid F/U @ 2Hr 2.3 H* Lactic Acid F/U @ 4Hr 1.8 Calcium Magnesium Iron TIBC % Saturation Unsat Iron Binding Ferritin Total Bilirubin Direct Bilirubin AST ALT Alkaline Phosphatase Lactate Dehydrogenase Total Creatine Kinase Troponin I High Sens C-Reactive Protein B-Natriuretic Peptide Total Protein Albumin Procalcitonin Vancomycin Trough C. difficile Tox B Gene COVID-19 (BRAD) COVID-19 Clin [employer] 03/02/21 03/02/21 03/02/21 07:23 11:13 16:44 WBC RBC Hgb Hct MCV MCH MCHC RDW Plt Count MPV Immature Gran % (Auto) Neut % (Auto) Lymph % (Auto) [place] % (Auto) Eos % (Auto) Baso % (Auto) Lymph # (Auto) [place] # (Auto) Eos # (Auto) Baso # (Auto) Abs Immat Gran (auto) Absolute Neuts (auto) Absolute Nucleated RBC Nucleated RBC % (auto) Neutrophils % (Manual) Band Neutrophils % Lymphocytes % (Manual) Monocytes % (Manual) Abs Neuts (Manual) Lymphocytes # (Manual) Monocytes # (Manual) Platelet Estimate Large Platelets Plt Morphology Comment RBC Morphology Ovalocytes [place] Cells Rouleaux Smear Path Review ESR PT INR APTT Sodium 138 Potassium 3.8 Chloride 109 H Carbon Dioxide 22 Anion Gap 11 L BUN 7 L Creatinine 0.59 Estim Creat Clear Calc 73.4 Estimated GFR > 60 POC Glucose 80 78 Random Glucose 92 Lactic Acid Lactic Acid F/U @ 2Hr Lactic Acid F/U @ 4Hr Calcium 7.4 L D Magnesium 1.5 L Iron TIBC % Saturation Unsat Iron Binding Ferritin Total Bilirubin Direct Bilirubin AST ALT Alkaline Phosphatase Lactate Dehydrogenase Total Creatine Kinase Troponin I High Sens C-Reactive Protein B-Natriuretic Peptide Total Protein Albumin Procalcitonin Vancomycin Trough C. difficile Tox B Gene COVID-19 (BRAD) COVID-19 VENNCOMM 03/02/21 03/03/21 03/03/21 20:37 03:39 06:02 WBC RBC Hgb Hct MCV MCH MCHC RDW Plt Count MPV Immature Gran % (Auto) Neut % (Auto) Lymph % (Auto) [place] % (Auto) Eos % (Auto) Baso % (Auto) Lymph # (Auto) [place] # (Auto) Eos # (Auto) Baso # (Auto) Abs Immat Gran (auto) Absolute Neuts (auto) Absolute Nucleated RBC Nucleated RBC % (auto) Neutrophils % (Manual) Band Neutrophils % Lymphocytes % (Manual) Monocytes % (Manual) Abs Neuts (Manual) Lymphocytes # (Manual) Monocytes # (Manual) Platelet Estimate Large Platelets Plt Morphology Comment RBC Morphology Ovalocytes [place] Cells Rouleaux Smear Path Review ESR PT INR APTT Sodium Potassium Chloride Carbon Dioxide Anion Gap BUN Creatinine 0.76 Estim Creat Clear Calc 57.0 Estimated GFR > 60 POC Glucose 80 95 Random Glucose Lactic Acid Lactic Acid F/U @ 2Hr Lactic Acid F/U @ 4Hr Calcium Magnesium Iron TIBC % Saturation Unsat Iron Binding Ferritin Total Bilirubin Direct Bilirubin AST ALT Alkaline Phosphatase Lactate Dehydrogenase Total Creatine Kinase Troponin I High Sens C-Reactive Protein B-Natriuretic Peptide Total Protein Albumin Procalcitonin Vancomycin Trough C. difficile Tox B Gene COVID-19 (BRAD) COVID-19 VENNCOMM 03/03/21 03/03/21 03/03/21 08:56 11:44 15:52 WBC RBC Hgb Hct MCV MCH MCHC RDW Plt Count MPV Immature Gran % (Auto) Neut % (Auto) Lymph % (Auto) [place] % (Auto) Eos % (Auto) Baso % (Auto) Lymph # (Auto) [place] # (Auto) Eos # (Auto) Baso # (Auto) Abs Immat Gran (auto) Absolute Neuts (auto) Absolute Nucleated RBC Nucleated RBC % (auto) Neutrophils % (Manual) Band Neutrophils % Lymphocytes % (Manual) Monocytes % (Manual) Abs Neuts (Manual) Lymphocytes # (Manual) Monocytes # (Manual) Platelet Estimate Large Platelets Plt Morphology Comment RBC Morphology Ovalocytes [place] Cells Rouleaux Smear Path Review ESR PT INR APTT Sodium Potassium Chloride Carbon Dioxide Anion Gap BUN Creatinine Estim Creat Clear Calc Estimated GFR POC Glucose 88 148 H 179 H Random Glucose Lactic Acid Lactic Acid F/U @ 2Hr Lactic Acid F/U @ 4Hr Calcium Magnesium Iron TIBC % Saturation Unsat Iron Binding Ferritin Total Bilirubin Direct Bilirubin AST ALT Alkaline Phosphatase Lactate Dehydrogenase Total Creatine Kinase Troponin I High Sens C-Reactive Protein B-Natriuretic Peptide Total Protein Albumin Procalcitonin Vancomycin Trough C. difficile Tox B Gene COVID-19 (BRAD) COVID-[facility] 03/03/21 03/03/21 03/04/21 18:45 20:50 06:03 WBC RBC Hgb Hct MCV MCH MCHC RDW Plt Count MPV Immature Gran % (Auto) Neut % (Auto) Lymph % (Auto) [place] % (Auto) Eos % (Auto) Baso % (Auto) Lymph # (Auto) [place] # (Auto) Eos # (Auto) Baso # (Auto) Abs Immat Gran (auto) Absolute Neuts (auto) Absolute Nucleated RBC Nucleated RBC % (auto) Neutrophils % (Manual) Band Neutrophils % Lymphocytes % (Manual) Monocytes % (Manual) Abs Neuts (Manual) Lymphocytes # (Manual) Monocytes # (Manual) Platelet Estimate Large Platelets Plt Morphology Comment RBC Morphology Ovalocytes [place] Cells Rouleaux Smear Path Review ESR PT INR APTT Sodium Potassium Chloride Carbon Dioxide Anion Gap BUN Creatinine 1.32 Estim Creat Clear Calc 32.8 Estimated GFR 39 POC Glucose 102 Random Glucose Lactic Acid Lactic Acid F/U @ 2Hr Lactic Acid F/U @ 4Hr Calcium Magnesium 2.1 Iron 18 L TIBC 130 L % Saturation 14 L Unsat Iron Binding 112 Ferritin Total Bilirubin Direct Bilirubin AST ALT Alkaline Phosphatase Lactate Dehydrogenase Total Creatine Kinase Troponin I High Sens C-Reactive Protein B-Natriuretic Peptide Total Protein Albumin Procalcitonin Vancomycin Trough C. difficile Tox B Gene NEGATIVE COVID-19 (BRAD) COVID-19 Clin Com 03/04/21 03/04/21 03/04/21 06:03 07:40 11:06 WBC 7.9 RBC 3.86 L Hgb 9.6 L Hct 31.2 L MCV 80.8 MCH 24.9 L MCHC 30.8 L RDW 16.6 H Plt Count 350 MPV 10.7 Immature Gran % (Auto) Neut % (Auto) Lymph % (Auto) [place] % (Auto) Eos % (Auto) Baso % (Auto) Lymph # (Auto) [place] # (Auto) Eos # (Auto) Baso # (Auto) Abs Immat Gran (auto) Absolute Neuts (auto) Absolute Nucleated RBC 0.080 H Nucleated RBC % (auto) 1.0 H Neutrophils % (Manual) Band Neutrophils % Lymphocytes % (Manual) Monocytes % (Manual) Abs Neuts (Manual) Lymphocytes # (Manual) Monocytes # (Manual) Platelet Estimate Large Platelets Plt Morphology Comment RBC Morphology Ovalocytes [place] Cells Rouleaux Smear Path Review SEE NOTE ESR PT INR APTT Sodium Potassium Chloride Carbon Dioxide Anion Gap BUN Creatinine Estim Creat Clear Calc Estimated GFR POC Glucose 123 H Random Glucose Lactic Acid Lactic Acid F/U @ 2Hr Lactic Acid F/U @ 4Hr Calcium Magnesium Iron TIBC % Saturation Unsat Iron Binding Ferritin Total Bilirubin Direct Bilirubin AST ALT Alkaline Phosphatase Lactate Dehydrogenase Total Creatine Kinase Troponin I High Sens C-Reactive Protein B-Natriuretic Peptide Total Protein Albumin Procalcitonin Vancomycin Trough 22.3 H C. difficile Tox B Gene COVID-19 (BRAD) COVID-19 Clin Com 03/04/21 03/04/21 11:09 16:05 WBC RBC Hgb Hct MCV MCH MCHC RDW Plt Count MPV Immature Gran % (Auto) Neut % (Auto) Lymph % (Auto) [place] % (Auto) Eos % (Auto) Baso % (Auto) Lymph # (Auto) [place] # (Auto) Eos # (Auto) Baso # (Auto) Abs Immat Gran (auto) Absolute Neuts (auto) Absolute Nucleated RBC Nucleated RBC % (auto) Neutrophils % (Manual) Band Neutrophils % Lymphocytes % (Manual) Monocytes % (Manual) Abs Neuts (Manual) Lymphocytes # (Manual) Monocytes # (Manual) Platelet Estimate Large Platelets Plt Morphology Comment RBC Morphology Ovalocytes [place] Cells Rouleaux Smear Path Review ESR PT INR APTT Sodium Potassium Chloride Carbon Dioxide Anion Gap BUN Creatinine Estim Creat Clear Calc Estimated GFR POC Glucose 165 H 161 H Random Glucose Lactic Acid Lactic Acid F/U @ 2Hr Lactic Acid F/U @ 4Hr Calcium Magnesium Iron TIBC % Saturation Unsat Iron Binding Ferritin Total Bilirubin Direct Bilirubin AST ALT Alkaline Phosphatase Lactate Dehydrogenase Total Creatine Kinase Troponin I High Sens C-Reactive Protein B-Natriuretic Peptide Total Protein Albumin Procalcitonin Vancomycin Trough C. difficile Tox B Gene COVID-19 (BRAD) COVID-19 Clin Com Airway TM Dist: >3cm Heart: RRR Lungs: CTA Assessment and Plan Assessment Anesthesia Assessment: Anesthesia Plan Discussed and Chart Reviewed Final Anesthetic Review NPO: Yes ASA Class: III and Emergency Final Preanesthetic Review: No Changes in Pt Med Stat Patient Risk: High Procedure Risk: Low Anesthetic Plan Anesthetic Plan: MAC: Disposition: Standard PACU
--- NOTE | 2021-03-04 18:31 | MHC.SHP ---
Pre-Procedural Eval Section A Date of Service: 03/04/21 The patient is an INPATIENT: Yes Changes since office visit: No Cold of Flu in the past 2 weeks, No New Medical Problems, No Changes in Medication and No Patient answered all questions The History & Physical has been completed within 30 days and I have reviewed it.: Yes Section B Chief Complaint: sev sepsis/wound infection/af+rvr/covid 19 Allergies: Allergies Allergy/AdvReac Type Severity Reaction Status Date / Time No Known Allergies Allergy Verified 03/01/21 11:33 Plan Diagnosis/Plan: Unchanged (Examination under anesthesia with placement of Lucero catheter and rectal tube) I have reviewed the history and physical and performed a pertinent physical examination on my patient. No changes have occurred unless specified.
--- NOTE | 2021-03-04 19:48 | W.PM.OPN ---
Operative Note Operative Note Date of Service: 03/04/21 Narrative: PreOperative Diagnosis: Perineal breakdown Post Operative Diagnosis: Radiation induced perineal breakdown Procedure: Examination under anesthesia Surgeon: Dr Toy Mixon Anesthesia: Sedation Indications for procedure: 75-year-old female with extensive perineal breakdown secondary to vulvar radiation for vulvar cancer. Swelling of nonhealing large ulcerated areas with incontinence of urine and stool. Needs diversion with Lucero catheter and rectal tube placement Procedure: After informed consent was verified the patient was brought to the operating room and placed in a supine position. Anesthesia was administered per protocol. Patient was placed in a frog-leg position Safety pause time-out performed Attempt made Lucero catheter placement. Anatomy severely distorted. Attempt with coude catheter unable to easily pass Patient placed on right lateral position and rectal tube placed in remnant rectum. Skin breakdown around. 40 cc air placed within soft rectal balloon Second temp made at placement of Lucero catheter. Using index fingers guide urethra was found retracted approximately 1 in up anterior vaginal wall and Lucero catheter placed with good urine efflux. 10 cc placed in balloon. Patient transferred back to bed and tolerated procedure Pathology: [] Drains: []
[2021-03-04 20:19] LABS: Glucose, Whole Blood 160 mg/dL (60-115)
[2021-03-04] MEDS: oxyCODONE HCl ER 10 MG TAB.ER.12H PO (21:04)
[2021-03-04] MEDS: Pravastatin Sodium 40 MG TABLET PO (21:04)
[2021-03-04 21:27] LABS: Vancomycin Random 21.2 mcg/mL (15-20)
--- NOTE | 2021-03-05 | ECG_ITS ---
Test Reason : F/U AFIB Blood Pressure : / mmHG Vent. Rate : 077 BPM Atrial Rate : 076 BPM P-R Int : 000 ms QRS Dur : 086 ms QT Int : 440 ms P-R-T Axes : 000 030 031 degrees QTc Int : 498 ms Normal sinus rhythm Low voltage QRS ST & T wave abnormality, consider inferior ischemia ST & T wave abnormality, consider anterior ischemia Possible prologed QTc; but as end of T wave is not clear, difficult to assess Abnormal ECG When compared with ECG of 03-MAR-2021 09:18, ST-T changes more prominent Referred By: Jose Brown Electronically Signed By:MAKENZIE BRADSHAW
[2021-03-05] MEDS: Piperacillin Sodium/Tazobactam 3.375 GM in 0.9 % Sodium Chloride 50 ML IV ×2 (01:04→06:13)
[2021-03-05] MEDS: vancomycin HCL 750 MG in 0.9 % Sodium Chloride 250 ML 265 MG IV (01:40)
[2021-03-05 02:00] LABS: Glucose, Whole Blood 152 mg/dL (60-115)
[2021-03-05 03:36] VITALS: BP 119/68; PULSE 73; RESP 18; TEMP 36.1; O2SAT 96
[2021-03-05] MEDS: HYDROmorphone HCl 0.5 MG/0.5 ML SYRINGE IVPUSH (04:45)
[2021-03-05] MEDS: Omeprazole 20 MG CAPSULE.DR PO (06:14)
[2021-03-05 06:41] LABS: Creatinine Clr Calc Pharmacy 23.7; Estimated Glomerular Filt Rate 27
[2021-03-05 07:32] LABS: Glucose, Whole Blood 144 mg/dL (60-115)
--- NOTE | 2021-03-05 07:37 | HO.POSTANES ---
Post Anesthesia Evaluation Post Anesthesia Evaluation Vital Signs: Vital Signs Temp Pulse Resp BP Pulse Ox 03/05/21 03:36 96.9 F 73 18 119/68 96 03/04/21 23:32 97.5 F 78 20 116/57 L 94 03/04/21 21:06 87 03/04/21 20:02 97.2 F 83 16 116/60 100 03/04/21 19:47 97.2 F 73 14 133/67 100 Anesthesia: Monitored Mental Status: Awake Pain Control: Satisfactory Nausea/Vomiting: None Hydration: Adequate Anesthesia-Related Issues: No Anes. Related Issues
[2021-03-05 07:45] VITALS: BP 120/57; PULSE 81; RESP 16; TEMP 36.4; O2SAT 94
[2021-03-05] MEDS: Ferrous Sulfate 324 MG TABLET.DR PO (08:39)
[2021-03-05] MEDS: Amiodarone HCL 200 MG TABLET 400 MG PO (08:39)
[2021-03-05] MEDS: DULoxetine HCl 60 MG CAPSULE.DR PO (08:39)
[2021-03-05] MEDS: Apixaban 5 MG TABLET PO ×2 (08:39→21:22)
[2021-03-05] MEDS: Cholecalciferol (Vitamin D3) 25 MCG TABLET 50 MCG PO (08:40)
[2021-03-05] MEDS: Miconazole Nitrate 2% Powder 85 GM Bottle 1 APPL TOPICAL ×2 (08:40→21:23)
[2021-03-05] MEDS: oxyCODONE HCl ER 10 MG TAB.ER.12H PO ×2 (08:40→21:22)
[2021-03-05] MEDS: 0.9 % Sodium Chloride Flush 3 ML SYRINGE IVFLUSH ×3 (08:40→21:22)
[2021-03-05] MEDS: LORazepam 0.5 MG TABLET PO ×2 (08:40→21:22)
[2021-03-05] MEDS: Cyanocobalamin (Vitamin B-12) 1,000 MCG TABLET 1000 MCG PO (08:40)
[2021-03-05] MEDS: 0.9 % Sodium Chloride 1,000 ML 80 ML IVCONT (08:40)
[2021-03-05 11:09] VITALS: BP 127/56; PULSE 75; RESP 20; TEMP 36.6; O2SAT 96
[2021-03-05 11:12] LABS: Glucose, Whole Blood 125 mg/dL (60-115)
--- NOTE | 2021-03-05 13:59 | P.PNIM_ITS ---
Subjective Subjective Date of Service: 03/05/21 Interval History: Patient awake alert, not offering any acute symptoms, unable to verbalize her needs due to baseline confusion, no acute issues overnight, status post rectal tube and Lucero catheter placement last evening by Dr. Mixon under anesthesia. Review of Systems Unable to obtain detailed review of system due to baseline confusion Physical Exam Vital Signs: Vital Signs: Last Vital Signs Temp 97.9 F 03/05/21 11:09 Pulse 75 03/05/21 11:09 Resp 20 03/05/21 11:09 BP 127/56 L 03/05/21 11:09 Pulse Ox 96 03/05/21 11:09 BMI result Body Mass Index 28.9 Gen:? Awake alert, baseline confusion no acute distress Neck: supple, no JVD Chest:?R subclavian port Lungs: clear to auscultation bilaterally Heart:? Regular rate rhythm, no murmurs Abd: soft, non-tender, non-distended, bowel sounds audible, rectal tube in place Ext: no edema Skin: warm/well-perfused,?pale, sacral wound/vulvar wounds unchanged refer to pictures in H&P notes Neuro: no focal findings, speech clear Lucero clear urine Psych: Poor insight Objective Data Active Medications Acetaminophen (Acetaminophen 325 Mg Tablet) 650 mg PO Q6H PRN PRN Reason: Pain, Mild (Pain Scale 1-3) Albuterol Sulfate (Albuterol Sulfate 90 Mcg 8 Gm Inhaler) 2 puff INHALE Q6H PRN PRN Reason: Shortness Of Breath Or Wheezing Amiodarone HCl (Amiodarone Hcl 200 Mg Tablet) 400 mg PO BID [facility] Last Admin: 03/05/21 08:39 Dose: 400 mg Documented by: ANDRE Apixaban (Apixaban 5 Mg Tablet) 5 mg PO BID [facility] Last Admin: 03/05/21 08:39 Dose: 5 mg Documented by: ANDRE Cyanocobalamin (Cyanocobalamin (Vitamin B-12) 1,000 Mcg Tablet) 1,000 mcg PO DAILY [facility] Last Admin: 03/05/21 08:40 Dose: 1,000 mcg Documented by: ANDRE Dextrose (Dextrose 50 % 25 Gm/50 Ml Vial) 25 gm IVPUSH Q15M PRN; Protocol PRN Reason: per Hypoglycemia Standing Ord. Doxycycline Hyclate (Doxycycline Hyclate 100 Mg Tablet) 100 mg PO Q12H [facility] Last Admin: 03/05/21 08:39 Dose: 100 mg Documented by: ADNRE Duloxetine HCl (Duloxetine Hcl 60 Mg Capsule.) 60 mg PO DAILY [facility] Last Admin: 03/05/21 08:39 Dose: 60 mg Documented by: ANDRE Ferrous Sulfate (Ferrous Sulfate 324 Mg Tablet.) 324 mg PO DAILY [facility] Last Admin: 03/05/21 08:39 Dose: 324 mg Documented by: ANDRE Glucose (Glucose Gel 15 Gm Gel..Gram.) 15 gm PO Q15M PRN; Protocol PRN Reason: per Hypoglycemia Standing Ord. Hydromorphone HCl (Hydromorphone Hcl 0.5 Mg/0.5 Ml Syringe) 0.5 mg IVPUSH Q4H PRN; Protocol PRN Reason: severe pain Last Admin: 03/05/21 04:45 Dose: 0.5 mg Documented by: ROSALVA Sodium Chloride (Ns) 1,000 mls @ 80 mls/hr IVCONT .[id number] [facility] Last Admin: 03/05/21 08:40 Dose: 80 mls/hr Documented by: ANDRE Insulin Glargine (Insulin Glargine,Hum.Rec.Anlog 100 Unit/Ml 10 Ml Vial) 16 unit SUBCUT BEDTIME [facility] Last Admin: 03/04/21 20:25 Dose: Not Given Documented by: JIMMY Non-Admin Reason: No Insulin Coverage Comments: pt not eating Insulin Human Lispro (Insulin Lispro 100 Unit/Ml 3 Ml Vial) 0 unit SUBCUT QIDACHS [facility]; Protocol Last Admin: 03/05/21 11:37 Dose: Not Given Documented by: ANDRE Non-Admin Reason: No Insulin Coverage Loperamide HCl (Loperamide Hcl 2 Mg Capsule) 4 mg PO Q4H PRN PRN Reason: diarrhea Lorazepam (Lorazepam 0.5 Mg Tablet) 0.5 mg PO BID [facility] Last Admin: 03/05/21 08:40 Dose: 0.5 mg Documented by: ANDRE Miconazole Nitrate (Miconazole Nitrate 2% Powder 85 Gm Bottle) 1 appl TOPICAL BID [facility]; Protocol Last Admin: 03/05/21 08:40 Dose: 1 appl Documented by: ANDRE Comments: in covid room Omeprazole (Omeprazole 20 Mg Capsule.Dr) 20 mg PO DAILY@0630 [facility] Last Admin: 03/05/21 06:14 Dose: 20 mg Documented by: ROSALVA Ondansetron HCl (Ondansetron Hcl 4 Mg/2 Ml Vial) 4 mg IVPUSH Q8H PRN PRN Reason: Nausea and Vomiting Oxycodone HCl (Oxycodone Hcl Immed Release 5 Mg Tablet) 5 mg PO Q12H PRN PRN Reason: Pain (Scale Score 4-6) Last Admin: 03/04/21 06:10 Dose: 5 mg Documented by: MASOUD Oxycodone HCl (Oxycodone Hcl Er 10 Mg Tab.Er.12h) 10 mg PO BID [facility] Last Admin: 03/05/21 08:40 Dose: 10 mg Documented by: ANDRE Pharmacy Consult (Consult Rx Perform Med Rec) 1 each MISCELLANE ONCE PRN PRN Reason: Consult order Pravastatin Sodium (Pravastatin Sodium 40 Mg Tablet) 40 mg PO BEDTIME [facility] Last Admin: 03/04/21 21:04 Dose: 40 mg Documented by: JIMMY Sodium Chloride (0.9 % Sodium Chloride Flush 3 Ml Syringe) 3 ml IVFLUSH QSHIFT [facility] Last Admin: 03/05/21 08:40 Dose: 3 ml Documented by: ANDRE Vitamin D (Cholecalciferol (Vitamin D3) 25 Mcg Tablet) 50 mcg PO DAILY [facility] Last Admin: 03/05/21 08:40 Dose: 50 mcg Documented by: ANDRE Labs CBC & Chem 7: 03/04/21 06:03 03/05/21 05:58 Labs: Laboratory Results - last 24 hr 03/04/21 03/04/21 03/04/21 16:05 20:15 20:57 Estim Creat Clear Calc Estimated GFR POC Glucose 161 H 160 H Random Vancomycin 21.2 H 03/05/21 03/05/21 03/05/21 01:56 05:58 07:19 Estim Creat Clear Calc 23.7 Estimated GFR 27 POC Glucose 152 H 144 H Random Vancomycin 03/05/21 10:48 Estim Creat Clear Calc Estimated GFR POC Glucose 125 H Random Vancomycin Assessment and Plan (1) Rectal incontinence: Status: Acute (2) Urinary incontinence: Status: Acute (3) 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 inguinal wounds, rapid ventricular response, and lactic acidosis.? She also has breakthrough Covid-19 infection, though is asymptomatic and not hypoxic. # chronic persistent AF with RVR - now in normal sinus rhythm stable ventricular rate, Repeat EKG showed prolonged QTC, will change dose of amiodarone to 400 mg hansel y repeat EKG at a.m. case discussed with Cardiology # acute kidney injury likely due to poor by mouth intake , Vanco toxicity, will DC vanco give IV fluids follow BMP avoid hypotension # sacral and vulvar wound infection/cellulitis ? No sepsis ? History of recurrent vulvar carcinoma stage III with recent chemotherapy status post chemoradiation in the past ? on IV vancomycin and Zosyn day 5/5 will transition to by mouth doxy and Augmentin ? Case discussed with Dr. Alfaro regarding debridement but since it is chronic wound due to radiation it is difficult to heal will continue frequent position change good nutrition,and keep the wound clean ??Seen by wound care they feel patient has soft tissue necrosis of pelvis associated with vulvar cancer, recommend using calcium alginate with Aquasol Ag for any drainage, surgery with removal of tissue as indicated ??Continue high-protein diet/frequent Mona care and position change ? Lucero catheter and rectal tube placed by Dr. Mixon # breakthrough Covid-19 infection - had 2 doses of mRNA vaccination in the spring. stable oxygenation 95% on room, monitor for hypoxia and respiratory decompensation.? # diarrhea, post-chemotherapy - loperamide prn, C diff negative # anemia noted to have drop in hematocrit , repeat hematocrit stable, no active blood loss noted low MCV , iron studies not consistent with iron deficiency anemia likely anemia of chronic disease # hypo magnesemia repleted and normalized 2.1 # DM2 - stable blood sugars, continue diabetic diet, basal/bolus insulin.? last A1c 7.2 on 12/24/20 # HLD - continue statin # mood disorder - continue duloxetine, lorazepam # chronic pain - continue long-acting oxycodone and prn short-acting oxycodone; and IV hydromorphone for breakthrough pain # VTE ppx - apixaban # code - full Case discussed with patient's daughter Charline Link [phone] spoke with her in detail in regard to code status she agrees with DNR DNI, according to her patient memory has declined significantly in last few months She is second healthcare proxy patient's spouse is the 1st healthcare proxy but unfortunately he is very ill under hospice care at nursing facility. Quality Stroke Does the patient have a stroke diagnosis?: No VTE Prior VTE?: No VTE Risk Level:: Medical - moderate - high VTE Device Contraindication: N/A - Device Ordered VTE Drug Contraindication: N/A - Med Ordered
[2021-03-05 15:14] VITALS: BP 99/48; PULSE 88; RESP 20; TEMP 36.7; O2SAT 99
--- NOTE | 2021-03-05 15:17 | PM.UROPN ---
Subjective Subjective Date of Service: 03/05/21 Interval history: Lucero catheter and rectal tube placed yesterday in operating room On review today these are in good position and draining Pain appears to have been significantly reduced Physical Exam Vital Signs: Vital Signs: Last Vital Signs Temp 98.0 F 03/05/21 15:14 Pulse 88 03/05/21 15:14 Resp 20 03/05/21 15:14 BP 99/48 L 03/05/21 15:14 Pulse Ox 99 03/05/21 15:14 BMI result Body Mass Index 28.9 Const: General: cooperative, healthy appearing, comfortable and no acute distress Orientation/consciousness: patient oriented x3 HENMT: Face and sinus: Yes normal facial exam Mouth: moist mucous membranes Neck: Neck: Yes normal visual inspection, Yes full ROM and Yes trachea midline Chest: Chest palpation & inspection: normal inspection of the chest Resp: Effort & Inspection: normal respiratory effort, able to speak in complete sentences and no respiratory distress GI: Inspection: Yes normal to inspection Back/Spine/Pelvis: Cervical Spine: normal cervical lordosis Thoracic/Lumbar Spine: thoracic and lumbar spine normal to inspection Skin: General skin exam: no rashes or lesions noted Neuro: General: patient oriented x3, tone normal and moves all extremities Extrem: General: Yes normal to inspection and Yes capillary refill normal Urology Results Labs CBC & Chem 7: 03/04/21 06:03 03/05/21 05:58 Labs: Laboratory Results - last 24 hr 03/04/21 03/04/21 03/04/21 16:05 20:15 20:57 Creatinine Estim Creat Clear Calc Estimated GFR POC Glucose 161 H 160 H Random Vancomycin 21.2 H 03/05/21 03/05/21 03/05/21 01:56 05:58 07:19 Creatinine 1.82 H Estim Creat Clear Calc 23.7 Estimated GFR 27 POC Glucose 152 H 144 H Random Vancomycin 03/05/21 10:48 Creatinine Estim Creat Clear Calc Estimated GFR POC Glucose 125 H Random Vancomycin Progress Note: A&P Assessment and plan (1) Rectal incontinence: Status: Acute (2) Urinary incontinence: Status: Acute Assessment and Plan: Continue with external drainage Fall Risk Details Current Medications: Current Medications Acetaminophen (Acetaminophen 325 Mg Tablet) 650 mg PO Q6H PRN PRN Reason: Pain, Mild (Pain Scale 1-3) Albuterol Sulfate (Albuterol Sulfate 90 Mcg 8 Gm Inhaler) 2 puff INHALE Q6H PRN PRN Reason: Shortness Of Breath Or Wheezing Amiodarone HCl (Amiodarone Hcl 200 Mg Tablet) 400 mg PO BID [facility] Last Admin: 03/05/21 08:39 Dose: 400 mg Documented by: Apixaban (Apixaban 5 Mg Tablet) 5 mg PO BID [facility] Last Admin: 03/05/21 08:39 Dose: 5 mg Documented by: Cyanocobalamin (Cyanocobalamin (Vitamin B-12) 1,000 Mcg Tablet) 1,000 mcg PO DAILY [facility] Last Admin: 03/05/21 08:40 Dose: 1,000 mcg Documented by: Dextrose (Dextrose 50 % 25 Gm/50 Ml Vial) 25 gm IVPUSH Q15M PRN; Protocol PRN Reason: per Hypoglycemia Standing Ord. Doxycycline Hyclate (Doxycycline Hyclate 100 Mg Tablet) 100 mg PO Q12H [facility] Last Admin: 03/05/21 08:39 Dose: 100 mg Documented by: Duloxetine HCl (Duloxetine Hcl 60 Mg Capsule.) 60 mg PO DAILY [facility] Last Admin: 03/05/21 08:39 Dose: 60 mg Documented by: Ferrous Sulfate (Ferrous Sulfate 324 Mg Tablet.) 324 mg PO DAILY [facility] Last Admin: 03/05/21 08:39 Dose: 324 mg Documented by: Glucose (Glucose Gel 15 Gm Gel..Gram.) 15 gm PO Q15M PRN; Protocol PRN Reason: per Hypoglycemia Standing Ord. Hydromorphone HCl (Hydromorphone Hcl 0.5 Mg/0.5 Ml Syringe) 0.5 mg IVPUSH Q4H PRN; Protocol PRN Reason: severe pain Last Admin: 03/05/21 04:45 Dose: 0.5 mg Documented by: Sodium Chloride (Ns) 1,000 mls @ 80 mls/hr IVCONT .[id number] [facility] Last Admin: 03/05/21 08:40 Dose: 80 mls/hr Documented by: Insulin Glargine (Insulin Glargine,Hum.Rec.Anlog 100 Unit/Ml 10 Ml Vial) 16 unit SUBCUT BEDTIME [facility] Last Admin: 03/04/21 20:25 Dose: Not Given Documented by: Insulin Human Lispro (Insulin Lispro 100 Unit/Ml 3 Ml Vial) 0 unit SUBCUT QIDACHS [facility]; Protocol Last Admin: 03/05/21 11:37 Dose: Not Given Documented by: Loperamide HCl (Loperamide Hcl 2 Mg Capsule) 4 mg PO Q4H PRN PRN Reason: diarrhea Lorazepam (Lorazepam 0.5 Mg Tablet) 0.5 mg PO BID [facility] Last Admin: 03/05/21 08:40 Dose: 0.5 mg Documented by: Miconazole Nitrate (Miconazole Nitrate 2% Powder 85 Gm Bottle) 1 appl TOPICAL BID [facility]; Protocol Last Admin: 03/05/21 08:40 Dose: 1 appl Documented by: Omeprazole (Omeprazole 20 Mg Capsule.Dr) 20 mg PO DAILY@0630 [facility] Last Admin: 03/05/21 06:14 Dose: 20 mg Documented by: Ondansetron HCl (Ondansetron Hcl 4 Mg/2 Ml Vial) 4 mg IVPUSH Q8H PRN PRN Reason: Nausea and Vomiting Oxycodone HCl (Oxycodone Hcl Immed Release 5 Mg Tablet) 5 mg PO Q12H PRN PRN Reason: Pain (Scale Score 4-6) Last Admin: 03/04/21 06:10 Dose: 5 mg Documented by: Oxycodone HCl (Oxycodone Hcl Er 10 Mg Tab.Er.12h) 10 mg PO BID [facility] Last Admin: 03/05/21 08:40 Dose: 10 mg Documented by: Pharmacy Consult (Consult Rx Perform Med Rec) 1 each MISCELLANE ONCE PRN PRN Reason: Consult order Pravastatin Sodium (Pravastatin Sodium 40 Mg Tablet) 40 mg PO BEDTIME [facility] Last Admin: 03/04/21 21:04 Dose: 40 mg Documented by: Sodium Chloride (0.9 % Sodium Chloride Flush 3 Ml Syringe) 3 ml IVFLUSH QSHIFT [facility] Last Admin: 03/05/21 08:40 Dose: 3 ml Documented by: Vitamin D (Cholecalciferol (Vitamin D3) 25 Mcg Tablet) 50 mcg PO DAILY [facility] Last Admin: 03/05/21 08:40 Dose: 50 mcg Documented by: Time Spent With Patient Time: Total time spent is greater than 50% in coordination of care (as documented) at patient's floor/unit and/or counseling patient: Time with patient: less than 15 minutes No Severe Sepsis: No Severe Sepsis Progress Note: Quality Stroke Does the patient have a stroke diagnosis?: No
[2021-03-05 16:05] LABS: Glucose, Whole Blood 137 mg/dL (60-115)
[2021-03-05] MEDS: Amoxicillin/Potassium Clav 500 MG TABLET PO (17:08)
[2021-03-05 19:09] VITALS: BP 141/70; PULSE 81; RESP 20; TEMP 36.1; O2SAT 96
[2021-03-05 19:13] LABS: Vancomycin Random 25.1 mcg/mL (15-20)
[2021-03-05 19:48] LABS: Glucose, Whole Blood 170 mg/dL (60-115)
[2021-03-05] MEDS: Pravastatin Sodium 40 MG TABLET PO (21:22)
[2021-03-06] VITALS: BP 132/58; PULSE 78; RESP 20; TEMP 37; O2SAT 97
[2021-03-06] MEDS: Amoxicillin/Potassium Clav 500 MG TABLET PO ×2 (04:55→16:47)
[2021-03-06] MEDS: 0.9 % Sodium Chloride 1,000 ML 80 ML IVCONT (04:55)
[2021-03-06 07:15] LABS: Anion Gap 12 (12-20); Blood Urea Nitrogen 12 mg/dL (9-16); Carbon Dioxide 21 mmol/L (22-29); Chloride 111 mmol/L (96-108); Creatinine Clr Calc Pharmacy 23.6; Estimated Glomerular Filt Rate 27; Glucose Random 152 mg/dL (60-115); Potassium 3.1 mmol/L (3.3-5.1); Sodium 141 mmol/L (135-145)
[2021-03-06 07:29] VITALS: BP 115/53; PULSE 78; RESP 16; TEMP 36.7; O2SAT 97
[2021-03-06 07:41] LABS: Glucose, Whole Blood 147 mg/dL (60-115)
[2021-03-06] MEDS: Ferrous Sulfate 324 MG TABLET.DR PO (07:59)
[2021-03-06] MEDS: Apixaban 5 MG TABLET PO ×2 (07:59→21:47)
[2021-03-06] MEDS: Cyanocobalamin (Vitamin B-12) 1,000 MCG TABLET 1000 MCG PO (07:59)
[2021-03-06] MEDS: 0.9 % Sodium Chloride Flush 3 ML SYRINGE IVFLUSH ×2 (07:59→16:29)
[2021-03-06] MEDS: Cholecalciferol (Vitamin D3) 25 MCG TABLET 50 MCG PO (07:59)
[2021-03-06] MEDS: LORazepam 0.5 MG TABLET PO ×2 (07:59→21:47)
[2021-03-06 08:00] VITALS: BP 115/53; PULSE 78
[2021-03-06] MEDS: DULoxetine HCl 60 MG CAPSULE.DR PO (08:00)
[2021-03-06] MEDS: oxyCODONE HCl ER 10 MG TAB.ER.12H PO ×2 (08:00→21:47)
[2021-03-06] MEDS: Amiodarone HCL 200 MG TABLET 400 MG PO (08:00)
[2021-03-06] MEDS: Miconazole Nitrate 2% Powder 85 GM Bottle 1 APPL TOPICAL (08:00)
[2021-03-06] MEDS: Potassium Chloride ER 20 MEQ TAB.ER.PRT 40 MEQ PO (10:10)
[2021-03-06 11:15] VITALS: BP 114/57; PULSE 80; RESP 18; TEMP 36.6; O2SAT 97
[2021-03-06 11:25] LABS: Glucose, Whole Blood 152 mg/dL (60-115)
[2021-03-06 11:39] LABS: Vancomycin Random 20.9 mcg/mL (15-20)
--- NOTE | 2021-03-06 12:10 | MHC.CLN ---
F/U DIET=DIABETIC 2000 KCAL, GLUCERNA BID AND KATHY BID TO PROMOTE WOUND HEALING. SUPPLEMENTS PROVIDE 630 KCAL, 25 G PROTEIN. UNSTAGEABLE PRESSURE INJURY TO COCCYX. MONITOR SKIN AND INTAKE.
--- NOTE | 2021-03-06 14:11 | HO.PM.IMPN ---
Subjective Subjective Date of Service: 03/06/21 Interval History: Offers no acute complaints remains pleasantly confused, no issues overnight, no fevers no chills tolerating by mouth, Lucero catheter with clear urine, no episode of yelling with pain. Review of Systems Review of Systems: Yes all other systems are reviewed and are negative Physical Exam Vital Signs: Vital Signs: Last Vital Signs Temp 97.8 F 03/06/21 11:15 Pulse 80 03/06/21 11:15 Resp 18 03/06/21 11:15 BP 114/57 L 03/06/21 11:15 Pulse Ox 97 03/06/21 11:15 BMI result Body Mass Index 28.9 Gen:? Awake alert, baseline confusion no acute distress Neck: supple, no JVD Chest:?R subclavian port Lungs: clear to auscultation bilaterally Heart:? Regular rate rhythm, no murmurs Abd: soft, non-tender, non-distended, bowel sounds audible, rectal tube in place Ext: no edema Skin: warm/well-perfused,?pale, sacral wound/vulvar wounds unchanged refer to pictures in H&P notes Neuro:? no focal findings, speech clear Lucero clear urine Psych:? Poor insight ? Objective Data Active Medications Acetaminophen (Acetaminophen 325 Mg Tablet) 650 mg PO Q6H PRN PRN Reason: Pain, Mild (Pain Scale 1-3) Albuterol Sulfate (Albuterol Sulfate 90 Mcg 8 Gm Inhaler) 2 puff INHALE Q6H PRN PRN Reason: Shortness Of Breath Or Wheezing Amiodarone HCl (Amiodarone Hcl 200 Mg Tablet) 400 mg PO DAILY [facility] Last Admin: 03/06/21 08:00 Dose: 400 mg Documented by: LANCE Amoxicillin/Clavulanate Potassium (Amoxicillin/Potassium Clav 500 Mg Tablet) 500 mg PO Q12H [facility] Last Admin: 03/06/21 04:55 Dose: 500 mg Documented by: KILEY Apixaban (Apixaban 5 Mg Tablet) 5 mg PO BID [facility] Last Admin: 03/06/21 07:59 Dose: 5 mg Documented by: LANCE Cyanocobalamin (Cyanocobalamin (Vitamin B-12) 1,000 Mcg Tablet) 1,000 mcg PO DAILY [facility] Last Admin: 03/06/21 07:59 Dose: 1,000 mcg Documented by: LANCE Dextrose (Dextrose 50 % 25 Gm/50 Ml Vial) 25 gm IVPUSH Q15M PRN; Protocol PRN Reason: per Hypoglycemia Standing Ord. Doxycycline Hyclate (Doxycycline Hyclate 100 Mg Tablet) 100 mg PO Q12H [facility] Last Admin: 03/06/21 07:59 Dose: 100 mg Documented by: LANCE Duloxetine HCl (Duloxetine Hcl 60 Mg Capsule.) 60 mg PO DAILY [facility] Last Admin: 03/06/21 08:00 Dose: 60 mg Documented by: LANCE Ferrous Sulfate (Ferrous Sulfate 324 Mg Tablet.) 324 mg PO DAILY [facility] Last Admin: 03/06/21 07:59 Dose: 324 mg Documented by: LANCE Glucose (Glucose Gel 15 Gm Gel..Gram.) 15 gm PO Q15M PRN; Protocol PRN Reason: per Hypoglycemia Standing Ord. Hydromorphone HCl (Hydromorphone Hcl 0.5 Mg/0.5 Ml Syringe) 0.5 mg IVPUSH Q4H PRN; Protocol PRN Reason: severe pain Last Admin: 03/05/21 04:45 Dose: 0.5 mg Documented by: ROSALVA Sodium Chloride (Ns) 1,000 mls @ 80 mls/hr IVCONT .[id number] [facility] Last Admin: 03/06/21 08:01 Dose: Not Given Documented by: LANCE Non-Admin Reason: IV Running Insulin Glargine (Insulin Glargine,Hum.Rec.Anlog 100 Unit/Ml 10 Ml Vial) 16 unit SUBCUT BEDTIME [facility] Last Admin: 03/05/21 21:16 Dose: Not Given Documented by: KILEY Non-Admin Reason: pt not eating Insulin Human Lispro (Insulin Lispro 100 Unit/Ml 3 Ml Vial) 0 unit SUBCUT QIDACHS [facility]; Protocol Last Admin: 03/06/21 12:15 Dose: Not Given Documented by: LANCE Non-Admin Reason: No Insulin Coverage Loperamide HCl (Loperamide Hcl 2 Mg Capsule) 4 mg PO Q4H PRN PRN Reason: diarrhea Lorazepam (Lorazepam 0.5 Mg Tablet) 0.5 mg PO BID [facility] Last Admin: 03/06/21 07:59 Dose: 0.5 mg Documented by: LANCE Miconazole Nitrate (Miconazole Nitrate 2% Powder 85 Gm Bottle) 1 appl TOPICAL BID [facility]; Protocol Last Admin: 03/06/21 08:00 Dose: 1 appl Documented by: LANCE Omeprazole (Omeprazole 20 Mg Capsule.Dr) 20 mg PO DAILY@0630 [facility] Last Admin: 03/06/21 04:53 Dose: Not Given Documented by: KILEY Non-Admin Reason: UNABLE TO CRUSH MED Ondansetron HCl (Ondansetron Hcl 4 Mg/2 Ml Vial) 4 mg IVPUSH Q8H PRN PRN Reason: Nausea and Vomiting Oxycodone HCl (Oxycodone Hcl Immed Release 5 Mg Tablet) 5 mg PO Q12H PRN PRN Reason: Pain (Scale Score 4-6) Last Admin: 03/04/21 06:10 Dose: 5 mg Documented by: MASOUD Oxycodone HCl (Oxycodone Hcl Er 10 Mg Tab.Er.12h) 10 mg PO BID [facility] Last Admin: 03/06/21 08:00 Dose: 10 mg Documented by: LANCE Pharmacy Consult (Consult Rx Perform Med Rec) 1 each MISCELLANE ONCE PRN PRN Reason: Consult order Pravastatin Sodium (Pravastatin Sodium 40 Mg Tablet) 40 mg PO BEDTIME [facility] Last Admin: 03/05/21 21:22 Dose: 40 mg Documented by: KILEY Sodium Chloride (0.9 % Sodium Chloride Flush 3 Ml Syringe) 3 ml IVFLUSH QSHIFT [facility] Last Admin: 03/06/21 07:59 Dose: 3 ml Documented by: LANCE Vitamin D (Cholecalciferol (Vitamin D3) 25 Mcg Tablet) 50 mcg PO DAILY [facility] Last Admin: 03/06/21 07:59 Dose: 50 mcg Documented by: LANCE Labs CBC & Chem 7: 03/04/21 06:03 03/06/21 06:10 Labs: Laboratory Results - last 24 hr 03/05/21 03/05/21 03/05/21 16:02 18:26 19:44 Anion Gap Estim Creat Clear Calc Estimated GFR POC Glucose 137 H 170 H Random Glucose Calcium Random Vancomycin 25.1 H* 03/06/21 03/06/21 03/06/21 06:10 07:32 11:10 Anion Gap 12 Estim Creat Clear Calc 23.6 Estimated GFR 27 POC Glucose 147 H Random Glucose 152 H Calcium 8.0 L D Random Vancomycin 20.9 H 03/06/21 11:18 Anion Gap Estim Creat Clear Calc Estimated GFR POC Glucose 152 H Random Glucose Calcium Random Vancomycin Assessment and Plan (1) Rectal incontinence: Status: Acute (2) Urinary incontinence: Status: Acute (3) 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: Status: Acute (4) Wound cellulitis: Status: Acute (5) Atrial fibrillation with rapid ventricular response: Status: Acute (6) COVID-19: Status: Acute (7) Acute kidney injury: Status: Acute Assessment and Plan: 75 year-old woman with AF anticoagulated with apixaban, DM2, and 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 inguinal wounds, rapid ventricular response, and lactic acidosis.? She also has breakthrough Covid-19 infection, though is asymptomatic and not hypoxic. # chronic persistent AF with RVR - now in normal sinus rhythm stable ventricular rate, ? Continue amiodarone 400 mg by mouth daily repeat EKG to follow QTC # acute kidney injury likely due to poor by mouth intake , Vanco toxicity Creatinine remains unchanged 1.83, no nausea, no vomiting, Continue IV fluid follow BMP avoid hypotension # sacral and vulvar wound infection/cellulitis ? No sepsis ? History of recurrent vulvar carcinoma stage III with recent chemotherapy status post chemoradiation in the past ? s/p IV vancomycin and Zosyn x 5 day now on mouth doxy and Augmentin ? Case discussed with Dr. Alfaro regarding debridement , it is chronic wound due to radiation it is difficult to heal post debridement ? 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 Mixon # breakthrough Covid-19 infection - had 2 doses of mRNA vaccination in the spring. stable oxygenation 95% on room, monitor for hypoxia and respiratory decompensation.? # diarrhea, post-chemotherapy - loperamide prn, C diff negative, rectal tube in place # anemia noted to have drop in hematocrit , repeat hematocrit stable, no active blood loss noted low MCV , iron studies not consistent with iron deficiency anemia likely anemia of chronic disease # hypo magnesemia repleted and normalized 2.1 # DM2 - stable blood sugars, continue diabetic diet, basal/bolus insulin.? last A1c 7.2 on 12/24/20 # HLD - continue statin # mood disorder - continue duloxetine, lorazepam # chronic pain - continue long-acting oxycodone and prn short-acting oxycodone; and IV hydromorphone for breakthrough pain # VTE ppx - apixaban # code - full Case discussed with patient's daughter Charline Link [facility] [phone] on 03/05 code status changed to DNR DNI Quality Stroke Does the patient have a stroke diagnosis?: No VTE Prior VTE?: No VTE Risk Level:: Medical - moderate - high VTE Device Contraindication: N/A - Device Ordered VTE Drug Contraindication: N/A - Med Ordered
[2021-03-06 15:43] VITALS: BP 124/55; PULSE 75; RESP 18; TEMP 36.2; O2SAT 96
[2021-03-06 17:21] LABS: Glucose, Whole Blood 131 mg/dL (60-115)
[2021-03-06 18:56] VITALS: BP 119/62; PULSE 80; RESP 18; TEMP 36.5; O2SAT 95
[2021-03-06 20:36] LABS: Glucose, Whole Blood 155 mg/dL (60-115)
[2021-03-06] MEDS: Insulin Lispro 100 UNIT/ML 3 ML VIAL SUBCUT (21:47)
[2021-03-06] MEDS: Pravastatin Sodium 40 MG TABLET PO (21:47)
[2021-03-06] MEDS: Insulin Glargine,Hum.rec.anlog 100 UNIT/ML 10 ML VIAL 16 UNIT SUBCUT (21:48)
[2021-03-07] VITALS (7 sets, daily range): BP systolic 111–148; BP diastolic 48–76; PULSE 66–110; RESP 18–20; TEMP 35.5–37; O2SAT 92–98
--- NOTE | 2021-03-07 | ECG_ITS ---
Test Reason : follow up on qtc Blood Pressure : / mmHG Vent. Rate : 080 BPM Atrial Rate : 080 BPM P-R Int : 168 ms QRS Dur : 080 ms QT Int : 420 ms P-R-T Axes : 046 019 196 degrees QTc Int : 485 ms Sinus rhythm with Premature atrial complexes Low voltage QRS Nonspecific ST and T wave abnormality Due to flat T wave, difficult to calculate QTc interval. Abnormal ECG No previous ECGs available Referred By: Jose Brown Electronically Signed By:MAKENZIE BRADSHAW
[2021-03-07] MEDS: 0.9 % Sodium Chloride Flush 3 ML SYRINGE IVFLUSH ×4 (00:12→21:24)
[2021-03-07] MEDS: Amoxicillin/Potassium Clav 500 MG TABLET PO ×2 (06:08→17:07)
[2021-03-07] MEDS: Omeprazole 20 MG CAPSULE.DR PO (06:08)
[2021-03-07 07:36] LABS: Glucose, Whole Blood 59 mg/dL (60-115)
[2021-03-07] MEDS: Glucose Gel 15 GM GEL..GRAM. PO (07:40)
[2021-03-07] MEDS: Cholecalciferol (Vitamin D3) 25 MCG TABLET 50 MCG PO (07:44)
[2021-03-07] MEDS: LORazepam 0.5 MG TABLET PO ×2 (07:45→21:23)
[2021-03-07] MEDS: Ferrous Sulfate 324 MG TABLET.DR PO (07:45)
[2021-03-07] MEDS: Apixaban 5 MG TABLET PO ×2 (07:45→21:23)
[2021-03-07] MEDS: oxyCODONE HCl ER 10 MG TAB.ER.12H PO ×2 (07:45→21:23)
[2021-03-07] MEDS: DULoxetine HCl 60 MG CAPSULE.DR PO (07:45)
[2021-03-07] MEDS: Cyanocobalamin (Vitamin B-12) 1,000 MCG TABLET 1000 MCG PO (07:45)
[2021-03-07] MEDS: Amiodarone HCL 200 MG TABLET 400 MG PO (07:45)
[2021-03-07 08:10] LABS: Glucose, Whole Blood 71 mg/dL (60-115)
[2021-03-07 08:53] LABS: Glucose, Whole Blood 70 mg/dL (60-115)
[2021-03-07] MEDS: Miconazole Nitrate 2% Powder 85 GM Bottle 1 APPL TOPICAL ×2 (10:06→21:26)
[2021-03-07 10:27] LABS: Glucose, Whole Blood 81 mg/dL (60-115)
[2021-03-07 11:24] LABS: Glucose, Whole Blood 77 mg/dL (60-115)
--- NOTE | 2021-03-07 12:21 | P.PNIM_ITS ---
Subjective Subjective Date of Service: 03/07/21 Interval History: Patient awake alert sitting on bed, admits that she is feeling good, no complain of pain, Lucero catheter with clear urine, noted to have low blood sugars this morning 59 patient asymptomatic treated with glucose gel blood sugar improved to 80, no other acute issues overnight. Review of Systems Review of Systems: Yes all other systems are reviewed and are negative Physical Exam Vital Signs: Vital Signs: Last Vital Signs Temp 96.8 F 03/07/21 11:07 Pulse 76 03/07/21 11:07 Resp 18 03/07/21 11:07 BP 134/75 03/07/21 11:07 Pulse Ox 98 03/07/21 11:07 BMI result Body Mass Index 28.9 Gen:? Awake alert, baseline confusio n no acute distres s Neck: supple, no JVD Chest:?R subc lavian port Lungs: clear to ausculta tion bilaterally H eart:? Regular rat e rhythm, no murmu rs Abd: soft, non- tender, non-disten ded, bowel sounds audible, rectal tu be in place Ext: n o edema Skin: warm /well-perfused,?pa le, sacral wound/v ulvar wounds uncha nged refer to pict ures in H&P notes Neuro:? no focal f indings, speech cl ear Lucero clear ur ine Psych:? Poor i nsight ? Objective Data Active Medications Acetaminophen (Acetaminophen 325 Mg Tablet) 650 mg PO Q6H PRN PRN Reason: Pain, Mild (Pain Scale 1-3) Albuterol Sulfate (Albuterol Sulfate 90 Mcg 8 Gm Inhaler) 2 puff INHALE Q6H PRN PRN Reason: Shortness Of Breath Or Wheezing Amiodarone HCl (Amiodarone Hcl 200 Mg Tablet) 400 mg PO DAILY [facility] Last Admin: 03/07/21 07:45 Dose: 400 mg Documented by: JULIEN Amoxicillin/Clavulanate Potassium (Amoxicillin/Potassium Clav 500 Mg Tablet) 500 mg PO Q12H [facility] Last Admin: 03/07/21 06:08 Dose: 500 mg Documented by: SHWETA Apixaban (Apixaban 5 Mg Tablet) 5 mg PO BID [facility] Last Admin: 03/07/21 07:45 Dose: 5 mg Documented by: JULIEN Cyanocobalamin (Cyanocobalamin (Vitamin B-12) 1,000 Mcg Tablet) 1,000 mcg PO DAILY [facility] Last Admin: 03/07/21 07:45 Dose: 1,000 mcg Documented by: JULIEN Dextrose (Dextrose 50 % 25 Gm/50 Ml Vial) 25 gm IVPUSH Q15M PRN; Protocol PRN Reason: per Hypoglycemia Standing Ord. Doxycycline Hyclate (Doxycycline Hyclate 100 Mg Tablet) 100 mg PO Q12H [facility] Last Admin: 03/07/21 07:45 Dose: 100 mg Documented by: JULIEN Duloxetine HCl (Duloxetine Hcl 60 Mg Capsule.) 60 mg PO DAILY [facility] Last Admin: 03/07/21 07:45 Dose: 60 mg Documented by: JULIEN Ferrous Sulfate (Ferrous Sulfate 324 Mg Tablet.) 324 mg PO DAILY [facility] Last Admin: 03/07/21 07:45 Dose: 324 mg Documented by: JULIEN Glucose (Glucose Gel 15 Gm Gel..Gram.) 15 gm PO Q15M PRN; Protocol PRN Reason: per Hypoglycemia Standing Ord. Last Admin: 03/07/21 07:40 Dose: 15 gm Documented by: JULIEN Insulin Glargine (Insulin Glargine,Hum.Rec.Anlog 100 Unit/Ml 10 Ml Vial) 16 unit SUBCUT BEDTIME [facility] Last Admin: 03/06/21 21:48 Dose: 16 unit Documented by: NERY Insulin Human Lispro (Insulin Lispro 100 Unit/Ml 3 Ml Vial) 0 unit SUBCUT QIDACHS [facility]; Protocol Last Admin: 03/07/21 11:21 Dose: Not Given Documented by: JULIEN Non-Admin Reason: No Insulin Coverage Loperamide HCl (Loperamide Hcl 2 Mg Capsule) 4 mg PO Q4H PRN PRN Reason: diarrhea Lorazepam (Lorazepam 0.5 Mg Tablet) 0.5 mg PO BID [facility] Last Admin: 03/07/21 07:45 Dose: 0.5 mg Documented by: JULIEN Miconazole Nitrate (Miconazole Nitrate 2% Powder 85 Gm Bottle) 1 appl TOPICAL BID [facility]; Protocol Last Admin: 03/07/21 10:06 Dose: 1 appl Documented by: JULIEN Omeprazole (Omeprazole 20 Mg Capsule.) 20 mg PO DAILY@0630 [facility] Last Admin: 03/07/21 06:08 Dose: 20 mg Documented by: SHWETA Ondansetron HCl (Ondansetron Hcl 4 Mg/2 Ml Vial) 4 mg IVPUSH Q8H PRN PRN Reason: Nausea and Vomiting Oxycodone HCl (Oxycodone Hcl Immed Release 5 Mg Tablet) 5 mg PO Q12H PRN PRN Reason: Pain (Scale Score 4-6) Last Admin: 03/04/21 06:10 Dose: 5 mg Documented by: MASOUD Oxycodone HCl (Oxycodone Hcl Er 10 Mg Tab.Er.12h) 10 mg PO BID [facility] Last Admin: 03/07/21 07:45 Dose: 10 mg Documented by: JULIEN Pharmacy Consult (Consult Rx Perform Med Rec) 1 each MISCELLANE ONCE PRN PRN Reason: Consult order Pravastatin Sodium (Pravastatin Sodium 40 Mg Tablet) 40 mg PO BEDTIME [facility] Last Admin: 03/06/21 21:47 Dose: 40 mg Documented by: NERY Sodium Chloride (0.9 % Sodium Chloride Flush 3 Ml Syringe) 3 ml IVFLUSH QSHIFT [facility] Last Admin: 03/07/21 07:44 Dose: 3 ml Documented by: JULIEN Vitamin D (Cholecalciferol (Vitamin D3) 25 Mcg Tablet) 50 mcg PO DAILY [facility] Last Admin: 03/07/21 07:44 Dose: 50 mcg Documented by: JULIEN Labs CBC & Chem 7: 03/04/21 06:03 03/06/21 06:10 Labs: Laboratory Results - last 24 hr 03/06/21 03/06/21 03/07/21 16:27 20:32 07:33 POC Glucose 131 H 155 H 59 L* 03/07/21 03/07/21 03/07/21 08:02 08:49 10:09 POC Glucose 71 70 81 03/07/21 11:20 POC Glucose 77 Microbiology Microbiology Results: Microbiology 03/01/21 12:48 Blood Culture - Final Blood - Venous No growth after 5 days. 03/01/21 12:38 Blood Culture - Final Blood - Venous No growth after 5 days. 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 inguinal wounds, rapid ventricular response, and lactic acidosis.? She also has breakthrough Covid-19 infection, though is asymptomatic and not hypoxic. # chronic persistent AF with RVR - now in normal sinus rhythm stable ventricular rate, ? Continue amiodarone 400 mg by mouth daily , repeat EKG this a.m. shows normal sinus , QTC improved # acute kidney injury likely due to poor by mouth intake , Vanco toxicity ?? Repeat labs pending, Creatinine 1.83 yesterday, no nausea, no vomiting s/p ivf ?? follow BMP avoid hypotension # sacral and vulvar wound infection/cellulitis ? No sepsis ? History of recurrent vulvar carcinoma stage III with recent chemotherapy status post chemoradiation in the past ? s/p IV vancomycin and Zosyn x 5 day, now on mouth doxy and Augmentin day 3 will discuss duration with ID ? Case discussed with Dr. Alfaro regarding debridement , it is chronic wound due to radiation it is difficult to heal post debridement ? 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 Mixon # breakthrough Covid-19 infection - had 2 doses of mRNA vaccination in the spring. stable oxygenation 95% on room, monitor for hypoxia and respiratory decompensation.? # diarrhea, post-chemotherapy - loperamide prn, C diff negative, rectal tube in place # anemia noted to have drop in hematocrit , repeat hematocrit stable, no active blood loss noted low MCV , iron studies not consistent with iron deficiency anemia likely anemia of chronic disease # hypo magnesemia repleted and normalized 2.1 # DM2 - low blood sugar, likely due to poor by mouth intake and IMAN, will DC Lantus, continue diabetic diet, bolus insulin.? last A1c 7.2 on 12/24/20 # HLD - continue statin # mood disorder - continue duloxetine, lorazepam # chronic pain - continue long-acting oxycodone and prn short-acting oxycodone; and IV hydromo rphone for breakthrough pain # VTE ppx - apixaban # code - full Case discussed with patient's daughter Charline Link [facility] [phone] on 03/05 code status changed to DNR DNI Quality Stroke Does the patient have a stroke diagnosis?: No VTE Prior VTE?: No VTE Risk Level:: Medical - moderate - high VTE Device Contraindication: N/A - Device Ordered VTE Drug Contraindication: N/A - Med Ordered
[2021-03-07] MEDS: Acetaminophen 325 MG TABLET 650 MG PO (12:22)
[2021-03-07] MEDS: oxyCODONE HCl Immed Release 5 MG TABLET PO (12:23)
[2021-03-07 13:38] LABS: Vancomycin Trough 16.3 mcg/mL (10.0-20.0)
[2021-03-07 13:46] LABS: Anion Gap 9 (12-20); Blood Urea Nitrogen 12 mg/dL (9-16); Calcium 8.1 mg/dL (8.4-10.2); Carbon Dioxide 23 mmol/L (22-29); Chloride 114 mmol/L (96-108); Creatinine Clr Calc Pharmacy 26.9; Estimated Glomerular Filt Rate 31; Glucose Random 102 mg/dL (60-115); Potassium 3.3 mmol/L (3.3-5.1); Sodium 143 mmol/L (135-145)
[2021-03-07 16:08] LABS: Glucose, Whole Blood 79 mg/dL (60-115)
[2021-03-07 20:14] LABS: Glucose, Whole Blood 77 mg/dL (60-115)
[2021-03-07] MEDS: Pravastatin Sodium 40 MG TABLET PO (21:23)
[2021-03-08 02:59] VITALS: BP 137/61; PULSE 73; RESP 20; TEMP 36.4; O2SAT 95
[2021-03-08] MEDS: oxyCODONE HCl Immed Release 5 MG TABLET PO ×2 (05:46→16:56)
[2021-03-08] MEDS: Amoxicillin/Potassium Clav 500 MG TABLET PO ×2 (05:46→16:49)
[2021-03-08] MEDS: Omeprazole 20 MG CAPSULE.DR PO (05:46)
[2021-03-08] MEDS: Acetaminophen 325 MG TABLET 650 MG PO (05:47)
[2021-03-08 07:34] VITALS: BP 121/56; PULSE 76; RESP 14; TEMP 37.2; O2SAT 96
[2021-03-08 07:35] LABS: Anion Gap 11 (12-20); Blood Urea Nitrogen 14 mg/dL (9-16); Calcium 8.5 mg/dL (8.4-10.2); Carbon Dioxide 23 mmol/L (22-29); Chloride 113 mmol/L (96-108); Creatinine Clr Calc Pharmacy 27.4; Estimated Glomerular Filt Rate 32; Glucose Random 82 mg/dL (60-115); Potassium 3.5 mmol/L (3.3-5.1); Sodium 143 mmol/L (135-145)
[2021-03-08 07:52] LABS: Glucose, Whole Blood 90 mg/dL (60-115)
[2021-03-08 09:11] VITALS: BP 121/56; PULSE 76
[2021-03-08] MEDS: Apixaban 5 MG TABLET PO ×2 (09:11→20:01)
[2021-03-08] MEDS: LORazepam 0.5 MG TABLET PO ×2 (09:11→20:01)
[2021-03-08] MEDS: Cholecalciferol (Vitamin D3) 25 MCG TABLET 50 MCG PO (09:11)
[2021-03-08] MEDS: Ferrous Sulfate 324 MG TABLET.DR PO (09:11)
[2021-03-08] MEDS: Cyanocobalamin (Vitamin B-12) 1,000 MCG TABLET 1000 MCG PO (09:11)
[2021-03-08] MEDS: 0.9 % Sodium Chloride Flush 3 ML SYRINGE IVFLUSH ×3 (09:11→20:02)
[2021-03-08] MEDS: oxyCODONE HCl ER 10 MG TAB.ER.12H PO ×2 (09:11→20:01)
[2021-03-08] MEDS: Amiodarone HCL 200 MG TABLET 400 MG PO (09:11)
[2021-03-08] MEDS: DULoxetine HCl 60 MG CAPSULE.DR PO (09:11)
[2021-03-08] MEDS: Miconazole Nitrate 2% Powder 85 GM Bottle 1 APPL TOPICAL ×2 (09:13→20:22)
[2021-03-08 11:22] VITALS: BP 140/57; PULSE 78; RESP 18; TEMP 36.4; O2SAT 99
[2021-03-08 12:06] LABS: Glucose, Whole Blood 85 mg/dL (60-115)
--- NOTE | 2021-03-08 12:19 | HO.PM.IMPN ---
Subjective Subjective Date of Service: 03/08/21 Interval History: Awake alert, denies pain, confused at baseline no behavioral issues noted, rectal tube with brown stool, Lucero clear urine, no fevers no chills, in normal sinus rhythm. Review of Systems Review of Systems: Yes all other systems are reviewed and are negative Physical Exam Vital Signs: Vital Signs: Last Vital Signs Temp 97.6 F 03/08/21 11:22 Pulse 78 03/08/21 11:22 Resp 18 03/08/21 11:22 BP 140/57 H 03/08/21 11:22 Pulse Ox 99 03/08/21 11:22 BMI result Body Mass Index 28.9 Gen:? Awake alert,?baseline confusion, no acute distress Neck: supple, no?JVD Chest:?R subclavian port Lungs:?clear to auscultation bilaterally Heart:? Regular rate rhythm, no murmurs Abd: soft, non-tender, non-distended, bowel soundsaudible, rectal tube in place Ext: no edema Skin: warm/well-perfused,?pale, sacral wound/vulvar wounds unchanged refer to pictures in H&P notes Neuro:? no focal findings, speech clear Lucero clear urine Psych:? Poor insight ? Objective Data Active Medications Acetaminophen (Acetaminophen 325 Mg Tablet) 650 mg PO Q6H PRN PRN Reason: Pain, Mild (Pain Scale 1-3) Last Admin: 03/08/21 05:47 Dose: 650 mg Documented by: ANISA Albuterol Sulfate (Albuterol Sulfate 90 Mcg 8 Gm Inhaler) 2 puff INHALE Q6H PRN PRN Reason: Shortness Of Breath Or Wheezing Amiodarone HCl (Amiodarone Hcl 200 Mg Tablet) 400 mg PO DAILY [facility] Last Admin: 03/08/21 09:11 Dose: 400 mg Documented by: ADELAIDA Amoxicillin/Clavulanate Potassium (Amoxicillin/Potassium Clav 500 Mg Tablet) 500 mg PO Q12H [facility] Last Admin: 03/08/21 05:46 Dose: 500 mg Documented by: ANISA Apixaban (Apixaban 5 Mg Tablet) 5 mg PO BID [facility] Last Admin: 03/08/21 09:11 Dose: 5 mg Documented by: ADELAIDA Cyanocobalamin (Cyanocobalamin (Vitamin B-12) 1,000 Mcg Tablet) 1,000 mcg PO DAILY [facility] Last Admin: 03/08/21 09:11 Dose: 1,000 mcg Documented by: ADELAIDA Dextrose (Dextrose 50 % 25 Gm/50 Ml Vial) 25 gm IVPUSH Q15M PRN; Protocol PRN Reason: per Hypoglycemia Standing Ord. Doxycycline Hyclate (Doxycycline Hyclate 100 Mg Tablet) 100 mg PO Q12H [facility] Last Admin: 03/08/21 09:11 Dose: 100 mg Documented by: ADELAIDA Duloxetine HCl (Duloxetine Hcl 60 Mg Capsule.) 60 mg PO DAILY [facility] Last Admin: 03/08/21 09:11 Dose: 60 mg Documented by: ADELAIDA Ferrous Sulfate (Ferrous Sulfate 324 Mg Tablet.) 324 mg PO DAILY [facility] Last Admin: 03/08/21 09:11 Dose: 324 mg Documented by: ADELAIDA Glucose (Glucose Gel 15 Gm Gel..Gram.) 15 gm PO Q15M PRN; Protocol PRN Reason: per Hypoglycemia Standing Ord. Last Admin: 03/07/21 07:40 Dose: 15 gm Documented by: JULIEN Insulin Human Lispro (Insulin Lispro 100 Unit/Ml 3 Ml Vial) 0 unit SUBCUT QIDACHS [facility]; Protocol Last Admin: 03/08/21 08:05 Dose: Not Given Documented by: ADELAIDA Non-Admin Reason: No Insulin Coverage Loperamide HCl (Loperamide Hcl 2 Mg Capsule) 4 mg PO Q4H PRN PRN Reason: diarrhea Lorazepam (Lorazepam 0.5 Mg Tablet) 0.5 mg PO BID [facility] Last Admin: 03/08/21 09:11 Dose: 0.5 mg Documented by: ADELAIDA Miconazole Nitrate (Miconazole Nitrate 2% Powder 85 Gm Bottle) 1 appl TOPICAL BID [facility]; Protocol Last Admin: 03/08/21 09:13 Dose: 1 appl Documented by: ADELAIDA Omeprazole (Omeprazole 20 Mg Capsule.) 20 mg PO DAILY@0630 [facility] Last Admin: 03/08/21 05:46 Dose: 20 mg Documented by: ANISA Ondansetron HCl (Ondansetron Hcl 4 Mg/2 Ml Vial) 4 mg IVPUSH Q8H PRN PRN Reason: Nausea and Vomiting Oxycodone HCl (Oxycodone Hcl Immed Release 5 Mg Tablet) 5 mg PO Q12H PRN PRN Reason: Pain (Scale Score 4-6) Last Admin: 03/08/21 05:46 Dose: 5 mg Documented by: ANISA Oxycodone HCl (Oxycodone Hcl Er 10 Mg Tab.Er.12h) 10 mg PO BID [facility] Last Admin: 03/08/21 09:11 Dose: 10 mg Documented by: ADELAIDA Pharmacy Consult (Consult Rx Perform Med Rec) 1 each MISCELLANE ONCE PRN PRN Reason: Consult order Pravastatin Sodium (Pravastatin Sodium 40 Mg Tablet) 40 mg PO BEDTIME [facility] Last Admin: 03/07/21 21:23 Dose: 40 mg Documented by: ANISA Sodium Chloride (0.9 % Sodium Chloride Flush 3 Ml Syringe) 3 ml IVFLUSH QSHIFT [facility] Last Admin: 03/08/21 09:11 Dose: 3 ml Documented by: ADELAIDA Vitamin D (Cholecalciferol (Vitamin D3) 25 Mcg Tablet) 50 mcg PO DAILY [facility] Last Admin: 03/08/21 09:11 Dose: 50 mcg Documented by: ADELAIDA Labs CBC & Chem 7: 03/04/21 06:03 03/08/21 06:42 Labs: Laboratory Results - last 24 hr 03/07/21 03/07/21 03/07/21 12:59 12:59 16:05 Anion Gap 9 L Estim Creat Clear Calc 26.9 Estimated GFR 31 POC Glucose 79 Random Glucose 102 Calcium 8.1 L Vancomycin Trough 16.3 03/07/21 03/08/21 03/08/21 20:10 06:42 07:38 Anion Gap 11 L Estim Creat Clear Calc 27.4 Estimated GFR 32 POC Glucose 77 90 Random Glucose 82 Calcium 8.5 Vancomycin Trough 03/08/21 11:27 Anion Gap Estim Creat Clear Calc Estimated GFR POC Glucose 85 Random Glucose Calcium Vancomycin Trough Assessment and Plan (1) Acute kidney injury: Status: Acute (2) Rectal incontinence: Status: Acute (3) Urinary incontinence: Status: Acute (4) 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 inguinal wounds, rapid ventricular response, and lactic acidosis.? She also has breakthrough Covid-19 infection, though is asymptomatic and not hypoxic. # chronic persistent AF with RVR - now in normal sinus rhythm stable ventricular rate, ? on amiodarone 400 mg by mouth daily day 7, repeat EKG shows normal sinus , QTC improved, beta-khushbu discontinued due to hypotension Case discussed with Dr. Ochoa he recommend amiodarone 200 mg daily x4 weeks and than stop, and then to resume home dose of beta blockers if blood pressure allows. # acute kidney injury likely due to poor by mouth intake , Vanco toxicity ?? renal function improved from 1.8 to 1.6 s/p IV fluids, follow BMP avoid hypotension # sacral and vulvar wound infection/cellulitis ? No sepsis ? History of recurrent vulvar carcinoma stage III with recent chemotherapy status post chemoradiation in the past ? s/p IV vancomycin and Zosyn x 5 day, now on mouth doxy and Augmentin day 4, will dc tomorrow after total 10 days ? Case discussed with Dr. Alfaro regarding debridement , it is chronic wound due to radiation it is difficult to heal post debridement ? 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 Mixon, now with less pain continue home pain medication OxyContin and oxycodone as needed #acute kidney injury likely due to poor by mouth intake , Vanco toxicity, renal function improved from 1.8 to 1.6 s/p IV fluids, follow BMP avoid hypotension # breakthrough Covid-19 infection - had 2 doses of mRNA vaccination in the spring. stable oxygenation 95% on room, monitor for hypoxia and respiratory decompensation.? # diarrhea, post-chemotherapy - loperamide prn, C diff negative, rectal tube in place # anemia noted to have drop in hematocrit , repeat hematocrit stable, no active blood loss noted low MCV , iron studies not consistent with iron deficiency anemia likely anemia of chronic disease # hypo magnesemia repleted and normalized 2.1 # DM2 - low blood sugar, likely due to poor by mouth intake and IMAN, continue diabetic diet, bolus insulin.? last A1c 7.2 on 12/24/20, Lantus discontinued # HLD - continue statin # mood disorder - continue duloxetine, lorazepam # chronic pain - continue long-acting oxycodone and prn short-acting oxycodone; and IV hydromorphone for breakthrough pain # VTE ppx - apixaban # code - full Case discussed with patient's daughter Charline Link hcp [phone] on 03/05 code status changed to DNR DNI, Case discussed with social services coordinator regarding discharge plan will likely return back to nursing facility, bed is not on hold Quality Stroke Does the patient have a stroke diagnosis?: No VTE Prior VTE?: No VTE Risk Level:: Medical - moderate - high VTE Device Contraindication: N/A - Device Ordered VTE Drug Contraindication: N/A - Med Ordered
[2021-03-08 15:44] VITALS: BP 141/63; PULSE 70; RESP 20; TEMP 36.4; O2SAT 95
[2021-03-08 16:06] LABS: Glucose, Whole Blood 94 mg/dL (60-115)
[2021-03-08 18:49] VITALS: BP 142/59; PULSE 76; RESP 20; TEMP 36.6; O2SAT 95
[2021-03-08 19:41] LABS: Glucose, Whole Blood 82 mg/dL (60-115)
[2021-03-08] MEDS: Pravastatin Sodium 40 MG TABLET PO (20:02)
[2021-03-09] VITALS (8 sets, daily range): BP systolic 109–149; BP diastolic 53–81; PULSE 79–88; RESP 16–20; TEMP 36.3–37.2; O2SAT 95–99
[2021-03-09] MEDS: oxyCODONE HCl Immed Release 5 MG TABLET PO ×2 (01:37→13:45)
--- NOTE | 2021-03-09 01:45 | PC.NURSE ---
03/08/21 approx 2100 pt with meds in pudding unable to swallow. took some of meds, unsure which. coretext to Dr. Merritt, hospitalist requesting iv pain med. severe chhaya wounds cancer. no new orders. 0140 cleansed wound with wound cleanser. fungal powder & silver algeanate to abdominal/groin folds and abd pads tucked within folds. pt crying out in pain. agrees to attempt swallow for pain med. hob high folwers, tolerated poorl related to discomfort.. swallowed roxicodone 5mg, with juice. no coughing noted.
[2021-03-09] MEDS: Amoxicillin/Potassium Clav 500 MG TABLET PO ×2 (05:46→17:09)
[2021-03-09] MEDS: Omeprazole 20 MG CAPSULE.DR PO (05:46)
[2021-03-09 07:09] LABS: Anion Gap 11 (12-20); Blood Urea Nitrogen 14 mg/dL (9-16); Calcium 8.7 mg/dL (8.4-10.2); Carbon Dioxide 24 mmol/L (22-29); Chloride 112 mmol/L (96-108); Creatinine Clr Calc Pharmacy 27.9; Estimated Glomerular Filt Rate 33; Glucose Random 92 mg/dL (60-115); Potassium 3.9 mmol/L (3.3-5.1); Sodium 143 mmol/L (135-145)
[2021-03-09 07:32] LABS: Glucose, Whole Blood 96 mg/dL (60-115)
[2021-03-09] MEDS: Cholecalciferol (Vitamin D3) 25 MCG TABLET 50 MCG PO (09:34)
[2021-03-09] MEDS: oxyCODONE HCl ER 10 MG TAB.ER.12H PO ×2 (09:34→21:25)
[2021-03-09] MEDS: 0.9 % Sodium Chloride Flush 3 ML SYRINGE IVFLUSH ×3 (09:34→21:26)
[2021-03-09] MEDS: Apixaban 5 MG TABLET PO ×2 (09:35→21:26)
[2021-03-09] MEDS: Cyanocobalamin (Vitamin B-12) 1,000 MCG TABLET 1000 MCG PO (09:35)
[2021-03-09] MEDS: DULoxetine HCl 60 MG CAPSULE.DR PO (09:35)
[2021-03-09] MEDS: Amiodarone HCL 200 MG TABLET PO (09:35)
[2021-03-09] MEDS: LORazepam 0.5 MG TABLET PO ×2 (09:36→21:26)
[2021-03-09] MEDS: Ferrous Sulfate 324 MG TABLET.DR PO (09:36)
[2021-03-09] MEDS: Miconazole Nitrate 2% Powder 85 GM Bottle 1 APPL TOPICAL ×2 (09:36→21:26)
[2021-03-09 11:15] LABS: Glucose, Whole Blood 121 mg/dL (60-115)
--- NOTE | 2021-03-09 11:17 | HO.PM.IMPN ---
Subjective Subjective Date of Service: 03/09/21 Interval History: seen and examined this AM denies any pain Review of Systems negative except HPI Physical Exam Vital Signs: Vital Signs: Last Vital Signs Temp 97.9 F 03/09/21 11:10 Pulse 80 03/09/21 11:10 Resp 20 03/09/21 11:10 BP 133/53 L 03/09/21 11:10 Pulse Ox 97 03/09/21 11:10 BMI result Body Mass Index 28.9 Const: Other: Gen:? Awake alert,?baseline confusion, no acute distress Neck: supple, no?JVD Chest:?R subclavian port Lungs:?clear to auscultation bilaterally Heart:? Regular rate rhythm, no murmurs Abd: soft, non-tender, non-distended, bowel soundsaudible, rectal tube in place Ext: no edema Skin: warm/well-perfused,?pale, sacral wound/vulvar wounds unchanged refer to pictures in H&P notes Neuro:? no focal findings, speech clear Lucero clear urine Psych:? Poor insight Objective Data Active Medications Acetaminophen (Acetaminophen 325 Mg Tablet) 650 mg PO Q6H PRN PRN Reason: Pain, Mild (Pain Scale 1-3) Last Admin: 03/08/21 05:47 Dose: 650 mg Documented by: ANISA Albuterol Sulfate (Albuterol Sulfate 90 Mcg 8 Gm Inhaler) 2 puff INHALE Q6H PRN PRN Reason: Shortness Of Breath Or Wheezing Amiodarone HCl (Amiodarone Hcl 200 Mg Tablet) 200 mg PO DAILY [facility] Last Admin: 03/09/21 09:35 Dose: 200 mg Documented by: ROSEMARIE Amoxicillin/Clavulanate Potassium (Amoxicillin/Potassium Clav 500 Mg Tablet) 500 mg PO Q12H [facility] Last Admin: 03/09/21 05:46 Dose: 500 mg Documented by: JOHNNIE Apixaban (Apixaban 5 Mg Tablet) 5 mg PO BID [facility] Last Admin: 03/09/21 09:35 Dose: 5 mg Documented by: ROSEMARIE Cyanocobalamin (Cyanocobalamin (Vitamin B-12) 1,000 Mcg Tablet) 1,000 mcg PO DAILY [facility] Last Admin: 03/09/21 09:35 Dose: 1,000 mcg Documented by: ROSEMARIE Dextrose (Dextrose 50 % 25 Gm/50 Ml Vial) 25 gm IVPUSH Q15M PRN; Protocol PRN Reason: per Hypoglycemia Standing Ord. Doxycycline Hyclate (Doxycycline Hyclate 100 Mg Tablet) 100 mg PO Q12H [facility] Last Admin: 03/09/21 09:35 Dose: 100 mg Documented by: ROSEMARIE Duloxetine HCl (Duloxetine Hcl 60 Mg Capsule.) 60 mg PO DAILY [facility] Last Admin: 03/09/21 09:35 Dose: 60 mg Documented by: ROSEMARIE Ferrous Sulfate (Ferrous Sulfate 324 Mg Tablet.) 324 mg PO DAILY [facility] Last Admin: 03/09/21 09:36 Dose: 324 mg Documented by: ROSEMARIE Glucose (Glucose Gel 15 Gm Gel..Gram.) 15 gm PO Q15M PRN; Protocol PRN Reason: per Hypoglycemia Standing Ord. Last Admin: 03/07/21 07:40 Dose: 15 gm Documented by: JULIEN Insulin Human Lispro (Insulin Lispro 100 Unit/Ml 3 Ml Vial) 0 unit SUBCUT QIDACHS [facility]; Protocol Last Admin: 03/09/21 07:14 Dose: Not Given Documented by: JOVANNA Non-Admin Reason: No Insulin Coverage Loperamide HCl (Loperamide Hcl 2 Mg Capsule) 4 mg PO Q4H PRN PRN Reason: diarrhea Lorazepam (Lorazepam 0.5 Mg Tablet) 0.5 mg PO BID [facility] Last Admin: 03/09/21 09:36 Dose: 0.5 mg Documented by: ROSEMARIE Miconazole Nitrate (Miconazole Nitrate 2% Powder 85 Gm Bottle) 1 appl TOPICAL BID [facility]; Protocol Last Admin: 03/09/21 09:36 Dose: 1 appl Documented by: ROSEMARIE Omeprazole (Omeprazole 20 Mg Capsule.) 20 mg PO DAILY@0630 [facility] Last Admin: 03/09/21 05:46 Dose: 20 mg Documented by: JOHNNIE Ondansetron HCl (Ondansetron Hcl 4 Mg/2 Ml Vial) 4 mg IVPUSH Q8H PRN PRN Reason: Nausea and Vomiting Oxycodone HCl (Oxycodone Hcl Immed Release 5 Mg Tablet) 5 mg PO Q12H PRN PRN Reason: Pain (Scale Score 4-6) Last Admin: 03/09/21 01:37 Dose: 5 mg Documented by: JOHNNIE Oxycodone HCl (Oxycodone Hcl Er 10 Mg Tab.Er.12h) 10 mg PO BID [facility] Last Admin: 03/09/21 09:34 Dose: 10 mg Documented by: ROSEMARIE Pharmacy Consult (Consult Rx Perform Med Rec) 1 each MISCELLANE ONCE PRN PRN Reason: Consult order Pravastatin Sodium (Pravastatin Sodium 40 Mg Tablet) 40 mg PO BEDTIME [facility] Last Admin: 03/08/21 20:02 Dose: 40 mg Documented by: JOHNNIE Sodium Chloride (0.9 % Sodium Chloride Flush 3 Ml Syringe) 3 ml IVFLUSH QSHIFT [facility] Last Admin: 03/09/21 09:34 Dose: 3 ml Documented by: ROSEMARIE Vitamin D (Cholecalciferol (Vitamin D3) 25 Mcg Tablet) 50 mcg PO DAILY [facility] Last Admin: 03/09/21 09:34 Dose: 50 mcg Documented by: ROSEMARIE Labs CBC & Chem 7: 03/04/21 06:03 03/09/21 06:11 Labs: Laboratory Results - last 24 hr 03/08/21 03/08/21 03/08/21 11:27 16:00 19:36 Anion Gap Estim Creat Clear Calc Estimated GFR POC Glucose 85 94 82 Random Glucose Calcium 03/09/21 03/09/21 03/09/21 06:11 07:26 11:11 Anion Gap 11 L Estim Creat Clear Calc 27.9 Estimated GFR 33 POC Glucose 96 121 H Random Glucose 92 Calcium 8.7 Assessment and Plan (1) Rectal incontinence: Status: Acute Assessment and Plan: 75 year-old woman with AF anticoagulated with apixaban, DM2, and 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 inguinal wounds, rapid ventricular response, and lactic acidosis.? She also has breakthrough Covid-19 infection, though is asymptomatic and not hypoxic. # chronic persistent AF with RVR now in normal sinus rhythm stable ventricular rate, on amiodarone 400 mg by mouth daily day 7, repeat EKG shows normal sinus , QTC improved, beta-khushbu discontinued due to hypotension Case discussed with Dr. Don he recommend amiodarone 200 mg daily x4 weeks and than stop, and then to resume home dose of beta blockers if blood pressure allows. day 04/10 of amiodarone 200mg continue eliqui # acute kidney injury likely due to poor by mouth intake , Vanco toxicity nearly resolved renal function nearly at baseline # sacral and vulvar wound infection/cellulitis ? No sepsis ? History of recurrent vulvar carcinoma stage III with recent chemotherapy status post chemoradiation in the past ? s/p IV vancomycin and Zosyn x 5 day; to complete total 10 days (last day today of augmentin/doxy) ? Case discussed with Dr. Alfaro regarding debridement , it is chronic wound due to radiation it is difficult to heal post debridement ? 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 Mixon, now with less pain continue home pain medication OxyContin and oxycodone as needed # breakthrough Covid-19 infection - had 2 doses of mRNA vaccination in the spring. stable oxygenation 95% on room, monitor for hypoxia and respiratory decompensation.? # diarrhea, post-chemotherapy start scheduled loperamide to see if we can slow down her diarrhea - loperamide prn, C diff negative, rectal tube in place # anemia noted to have drop in hematocrit , repeat hematocrit stable, no active blood loss noted low MCV , iron studies not consistent with iron deficiency anemia likely anemia of chronic disease # hypo magnesemia repleted and normalized 2.1 # DM2 - low blood sugar, likely due to poor by mouth intake and IMAN, continue diabetic diet, bolus insulin.? last A1c 7.2 on 12/24/20, Lantus discontinued # HLD - continue statin # mood disorder - continue duloxetine, lorazepam # chronic pain - continue long-acting oxycodone and prn short-acting oxycodone; and IV hydromorphone for breakthrough pain # VTE ppx - apixaban Case discussed with patient's daughter Charline Link [facility] [phone] on 03/05 code status changed to DNR DNI, Case discussed with health and social care teacher regarding discharge plan will likely return back to nursing facility, bed is not on hold Quality Stroke Does the patient have a stroke diagnosis?: No VTE Prior VTE?: No VTE Risk Level:: Medical - moderate - high VTE Device Contraindication: N/A - Device Ordered VTE Drug Contraindication: N/A - Med Ordered
--- NOTE | 2021-03-09 11:26 | MHC.CM.PN ---
Addendum entered by Kim Monzon 03/09/21 15:59: [facility] has asked for additional clinical information for Auth. A PT eval was sent and an OT evaluation has been ordered. Auth is john [facility] [place]. [facility] has requested Permission to accept her in [facility] which is closed to admissions r/t Covid pandemic. Dtr Beni notified that dc will not be happening today. Error in previous note Beni's phone number area code is [phone], not [phone]. Original Note: DTR/HCP Beni ARTEAGA [phone]
[2021-03-09] MEDS: Loperamide HCl 2 MG CAPSULE 4 MG PO ×2 (12:05→21:25)
--- NOTE | 2021-03-09 13:43 | PM.DS ---
DS: Providers Provider Date of Service: 03/09/21 Date of admission: 03/01/21 16:25 Primary care physician: Sabino Harp MD Consults: 03/01/21 16:22 Consult to Cardiology Routine Consulting Provider: Cody Cox Reason for consultation: AF/RVR, septic Consult to General Surgery Routine Consulting Provider: [facility] [place] [facility] General Surgeons Reason for consultation: grossly contaminated fecal + vaginal wounds, s/p chemorad for vulvar CA Consult to Infectious Diseases Routine Consulting Provider: Jackie Mujica Reason for consultation: sepsis from wound infection, Covid-19 breakthrough (not hypoxic) Consult to Wound Care Routine Consulting Provider: [facility] [place] Wound Care Management Reason for consultation: grossly contaminated fecal + vaginal wounds, s/p chemorad for vulvar CA 03/04/21 08:46 Consult to Urology Routine Consulting Provider: Toy Mixon Reason for consultation: perineal wound roper placement Has provider been notified: No DS: Diagnosis Discharge Diagnosis (1) Rectal incontinence: Status: Acute (2) Acute kidney injury: Status: Acute (3) Urinary incontinence: Status: Acute (4) 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 She recently restarted on chemotherapy at [facility], where she was just admitted 02/11-02/16/21 after sustaining a fall at home.? She was transferred to [facility] for failure to thrive and for placement.? She had a Port-A-Cath placed and received her 2nd cycle of cisplatin and paclitaxel on 02/15 with dose reduction due to diarrhea she had after the 1st cycle.? She was discharged to [facility], which apparently is being staffed currently by state-deployed emergency nurses due to the Covid-19 pandemic.? She has chronic perirectal and inguinal wounds related to prior radiation.? Her , with whom she lives, was also admitted to [facility] and they roomed together until 1 of them [she is unclear which one] tested positive for Covid-19.? She had 2 doses of the [employer] Covid-19 mRNA vaccine in June and July of this year.? She denies cough, dyspnea, or fever. ? She was sent in with pain in her buttock and genital area with worsening wounds, which were found in the ED to be contaminated with feces.? She does endorse diarrhea.? She was found to be in AF with RVR of 155.? She was given IV vancomycin and piperacillin-tazobactam, and 10mg of IV diltiazem.? BP dropped from 112/54 to 87/56 with RVR still in the 140s.? Lactate 3.8.? She was given 30 mL/kg of NS though did not, strictly speaking, meet sepsis criteria.? She was then given 0.5mg of IV digoxin.? Currently, she is in AF with RVR in the 130s with BP 135/96.? She denies chest pain, palpitations, or lightheadedness. CT of the abdomen and pelvis show diffuse cellulitis with postradiation changes in the presacral area. Hospital Course by d/c diagnosis: 1. Chronic Wounds She was treated with IV vancomcyin and zosyn initially, followed by PO doxy/augmentin for 5 more days. She has completed antibiotic course. Seen by ID, Gen Surg and wound Care. No debridgement was recommend. Wound Care recommended: Consider using calcium alginate with silver (Aquacel AG or DuraFiber) for any drainage.? Off-label use of metronidazole powder has been used in palliative situations to control odor. Additionally, can consider referral to Plastics / Hyperbaric (not needed acutely) -- would be best at [facility] given all her care is there. Additionally -- wound management was difficult due to urinary and bowel incontinence for which a roper cather and rectal tube was placed. These will remain in place at the time of discharge. 2. PAF/A. Fib with RVR She presented in A. Fib with RVR. DId not improve with dig and was treated with IV amiodarone. She converted to NSR. BP was soft and so BB would not be used, but now has improved and she will be d/c on her usual metoprolol dose. She will be on Amio for 27 more days (200mg) after which it can be discontinued. Cardiology was on the case and the plan regarding amio was discussed with them. 3. Breakthrough COVID 19 infection no hypoxia during hospitalization and remains so at d/c other chronic issues were stable in the hospital Time Spent with Patient Time attestation: Total time spent providing and/or coordinating discharge services: Discharge coordination time: Greater than 30 minutes Quality: Stroke Does the patient have a stroke diagnosis?: No Physical Exam Vital Signs: Vital Signs: Last Vital Signs Temp 97.9 F 03/09/21 11:10 Pulse 80 03/09/21 12:12 Resp 20 03/09/21 11:10 BP 133/53 L 03/09/21 12:12 Pulse Ox 97 03/09/21 12:12 BMI result Body Mass Index 28.9 Const: Other: Gen:? Awake alert,?baseline confusion, no acute distress Neck: supple, no?JVD Chest:?R subclavian port Lungs:?clear to auscultation bilaterally Heart:? Regular rate rhythm, no murmurs Abd: soft, non-tender, non-distended, bowel soundsaudible, rectal tube in place Ext: no edema Skin: warm/well-perfused,?pale, sacral wound/vulvar wounds without acute infection Neuro:? no focal findings, speech clear Roper clear urine Psych:? Poor insight DS: Data Data Completed and Pending Labs on day of discharge: Laboratory Results - last 24 hr 03/08/21 03/08/21 03/09/21 16:00 19:36 06:11 Sodium 143 Potassium 3.9 Chloride 112 H Carbon Dioxide 24 Anion Gap 11 L BUN 14 Creatinine 1.55 H Estim Creat Clear Calc 27.9 Estimated GFR 33 POC Glucose 94 82 Random Glucose 92 Calcium 8.7 03/09/21 03/09/21 07:26 11:11 Sodium Potassium Chloride Carbon Dioxide Anion Gap BUN Creatinine Estim Creat Clear Calc Estimated GFR POC Glucose 96 121 H Random Glucose Calcium Discharge Plan Discharge Patient Disposition: Xfer SNF Discharge Diagnosis: Chronic Wounds Referrals: [facility] [Outside] - 1 Week Sabino Harp MD [Primary Care Provider] - 1 Week Discharge Medications: New amiodarone 200 mg Tablet 200 mg PO DAILY Qty: 27 RF: 0 Micro-Guard 2 % Powder 1 appl topical BID Qty: 1020 RF: 0 Continued oxycodone 5 mg Tablet 5 mg PO Q12H PRN (Reason: Pain (Scale Score 4-6)) RF: 0 oxycodone [OxyContin] 10 mg Tablet,Oral Only,Ext.Rel.12 Hr 10 mg PO BID RF: 0 apixaban 5 mg Tablet 5 mg PO BID RF: 0 cholecalciferol (vitamin D3) [Vitamin D3] 50 mcg (2,000 unit) Capsule 50 mcg PO DAILY RF: 0 cyanocobalamin (vitamin B-12) 1,000 mcg Tablet 1,000 mcg PO DAILY RF: 0 duloxetine 60 mg Capsule,Delayed Release(Dr/Ec) 60 mg PO DAILY RF: 0 ferrous sulfate 324 mg (65 mg iron) Tablet,Delayed Release (Dr/Ec) 324 mg PO DAILY RF: 0 Lantus U-100 Insulin 100 unit/mL Solution 16 unit SUBCUT BEDTIME RF: 0 Magic Mouthwash 10 ml PO TIDAC RF: 0 lorazepam 0.5 mg Tablet 0.5 mg PO BID RF: 0 lovastatin 40 mg Tablet 40 mg PO BEDTIME RF: 0 metoprolol tartrate 25 mg Tablet 12.5 mg PO BID RF: 0 omeprazole 20 mg Capsule,Delayed Release(Dr/Ec) 20 mg PO DAILY@0630 RF: 0 prochlorperazine maleate 10 mg Tablet 10 mg PO Q6H PRN (Reason: Nausea And Vomiting) RF: 0 insulin lispro [Humalog U-100 Insulin] 100 unit/mL Solution 1 sliding scale dose SUBCUT QIDACHS RF: 0 loperamide 2 mg Tablet 2 mg PO Q8H PRN (Reason: Diarrhea) RF: 0 albuterol sulfate [ProAir HFA] 90 mcg/actuation Hfa Aerosol Inhaler 2 puff INHALATION Q6H PRN (Reason: Shortness Of Breath Or Wheezing) RF: 0 Discontinued docusate sodium 100 mg Capsule 100 mg PO BID RF: 0 polyethylene glycol 3350 [Miralax] 17 gram/dose Powder 17 g PO DAILY RF: 0 Discharge Orders: Discharge Order (Routine); Ordered 03/09/21 Ordered By: Mitchell Holden Diet: advance to usual diet Activity on Discharge: As tolerated Stand Alone Forms: Patient Portal Discharge page Care Plan Goals: To stay healthy and out of the hospital. Health Concerns: COVID 19 Chronic Wounds A. Fib Diarrhea Urinary Retention Plan of Treatment: COVID 19 -- maintain isolation per SNF/CDC guidlines Chronic Wounds -- calcium alginate with silver (Aquacel AG or DuraFiber) for any drainage, Metronidazole powder may alleviate any foul odor. A. Fib -- Take Amiodarone 200mg daily for 27 more days. After this stop. Continue your metoprolol. Diarrhea - use Immodium, keep rectal tube in place Urinary Retention - Keep Roper in place Assessment: See d/c summary
--- NOTE | 2021-03-09 15:55 | MHC.CLN ---
F/U POOR INTAKE X AT LEAST 4 DAYS. DIET=DIABETIC 2000 KCAL, GLUCERNA BID AND KATHY BID TO PROMOTE WOUND HEALING. SUPPLEMENTS PROVIDE 630 KCAL, 25 G PROTEIN. UNSTAGEABLE PRESSURE INJURY TO COCCYX. MONITOR SKIN AND INTAKE.
[2021-03-09 16:15] LABS: Glucose, Whole Blood 170 mg/dL (60-115)
[2021-03-09] MEDS: Acetaminophen 325 MG TABLET 650 MG PO (17:09)
[2021-03-09 20:28] LABS: Glucose, Whole Blood 169 mg/dL (60-115)
[2021-03-09] MEDS: Pravastatin Sodium 40 MG TABLET PO (21:25)
[2021-03-10 03:32] VITALS: BP 140/86; PULSE 84; RESP 19; TEMP 36.2; O2SAT 99
[2021-03-10] MEDS: Omeprazole 20 MG CAPSULE.DR PO (05:39)
[2021-03-10] MEDS: Loperamide HCl 2 MG CAPSULE 4 MG PO ×2 (05:39→12:18)
[2021-03-10] MEDS: Amoxicillin/Potassium Clav 500 MG TABLET PO (05:39)
[2021-03-10 07:00] VITALS: BP 117/57; PULSE 78; RESP 16; TEMP 36.1; O2SAT 100
[2021-03-10 07:57] LABS: Glucose, Whole Blood 153 mg/dL (60-115)
[2021-03-10] MEDS: 0.9 % Sodium Chloride Flush 3 ML SYRINGE IVFLUSH (08:15)
[2021-03-10] MEDS: Cholecalciferol (Vitamin D3) 25 MCG TABLET 50 MCG PO (08:15)
[2021-03-10] MEDS: Ferrous Sulfate 324 MG TABLET.DR PO (08:20)
[2021-03-10] MEDS: DULoxetine HCl 60 MG CAPSULE.DR PO (08:20)
[2021-03-10] MEDS: Cyanocobalamin (Vitamin B-12) 1,000 MCG TABLET 1000 MCG PO (08:20)
[2021-03-10] MEDS: LORazepam 0.5 MG TABLET PO (08:20)
[2021-03-10] MEDS: oxyCODONE HCl ER 10 MG TAB.ER.12H PO (08:20)
[2021-03-10] MEDS: Insulin Lispro 100 UNIT/ML 3 ML VIAL SUBCUT (08:21)
[2021-03-10 08:22] VITALS: BP 117/57; PULSE 78
[2021-03-10] MEDS: Amiodarone HCL 200 MG TABLET PO (08:22)
[2021-03-10] MEDS: Apixaban 5 MG TABLET PO (08:23)
[2021-03-10 08:45] VITALS: BP 117/57; PULSE 78
[2021-03-10] MEDS: Miconazole Nitrate 2% Powder 85 GM Bottle 1 APPL TOPICAL (09:19)
[2021-03-10 11:05] VITALS: BP 120/64; PULSE 79; RESP 20; TEMP 36.1; O2SAT 100
[2021-03-10 11:28] LABS: Glucose, Whole Blood 148 mg/dL (60-115)
--- NOTE | 2021-03-10 12:59 | PM.EVENT ---
Event Note Date of Service: 03/10/21 Event Note: Patient seen and examined this AM No new issues reported. Remains stable for discharge. Await insurance auth.
--- NOTE | 2021-03-10 13:26 | MHC.CM.PN ---
IMM 03/10/21 Female 75 DX Covid+ is discharged to [facility]. DC info has been sent. Pts dtr Charline has been notified of discharge. She is in agreement with the dc to [facility] today. Pt is booked for transport with [facility]. [facility] is the prefered provider for [facility]. They have scheduled shrimp picker for 5:30pm.
[2021-03-10] MEDS: oxyCODONE HCl Immed Release 5 MG TABLET PO (14:17)
--- NOTE | 2021-03-10 18:21 | PC.NURSE ---
Warm handover report given at 1820
== END 2021-03-10 18:13 | disposition skilled nursing facility (03) | DRG 606 ==
LOC: HO.ED 16:06 → HO.EDOVER 16:57 → HO.IMC 03-02 07:23
PROVIDERS: Hospitalist; Physician Assistant; Urology; Admitting Provider Family Medicine; Emergency Provider Emergency Medicine; PCP Family Medicine; Visit Provider Family Medicine
PROC: 0T9B70Z Drainage of Bladder with Drainage Device, Via Natural or Artificial Opening (ICD-10-PCS; principal; 2021-03-04 17:50)
DX: L59.8 Other specified disorders of the skin and subcutaneous tissue related to radiation (principal); U07.1 COVID-19; K52.1 Toxic gastroenteritis and colitis; N17.9 Acute kidney failure, unspecified; I48.19 Other persistent atrial fibrillation; I95.9 Hypotension, unspecified; I48.0 Paroxysmal atrial fibrillation; L98.419 Non-pressure chronic ulcer of buttock with unspecified severity; E11.9 Type 2 diabetes mellitus without complications; E78.5 Hyperlipidemia, unspecified; L98.499 Non-pressure chronic ulcer of skin of other sites with unspecified severity; E83.42 Hypomagnesemia; F39 Unspecified mood [affective] disorder; G89.29 Other chronic pain; D63.8 Anemia in other chronic diseases classified elsewhere; C51.9 Malignant neoplasm of vulva, unspecified; R62.7 Adult failure to thrive; Z68.28 Body mass index [BMI] 28.0-28.9, adult; Y84.2 Radiological procedure and radiotherapy as the cause of abnormal reaction of the patient, or of later complication, without mention of misadventure at the time of the procedure; T45.1X5A Adverse effect of antineoplastic and immunosuppressive drugs, initial encounter; Y92.9 Unspecified place or not applicable; Z79.4 Long term (current) use of insulin; Z79.01 Long term (current) use of anticoagulants; Z79.899 Other long term (current) drug therapy; Z66 Do not resuscitate
CPT/HCPCS: 36415; 71045; 74177; 80048; 80076; 80202; 82550; 82565; 82728; 82947; 83540; 83605; 83615; 83735; 83880; 84145; 84484; 85007; 85027; 85610; 85652; 85730; 86140; 87040; 87493; 87635; 93005; 96361; 96365; 96375; 97110; 97162; 97166; 99285; 99291; J0282; J1160; J1170; J2270; J2543; J3010; J3370; J3475; Q9967